=== PATIENT | female | born 1955 | race Caucasian/White ===

== ENCOUNTER 2017-08-26 08:33 | Emergency (ER) | payer OTHER ==
[2017-08-26] MEDS ORDERED: NA CHLORIDE 0.9% 1,000 ML ONE (09:11)
[2017-08-26] MEDS ORDERED: ONDANSETRON 4 MG/2 ML VIAL ONE (09:11)
[2017-08-26] MEDS ORDERED: ACETAMINOPHEN 500 MG TAB ONE (09:44)
[2017-08-26 09:55] LABS: Albumin 3.7 g/dL (3.4-5.0); Bilirubin Direct 0.1 mg/dL (0-0.2); Bilirubin Total 0.3 mg/dL (0.2-1.0)
[2017-08-26 09:59] LABS: Potassium 2.6 mmol/L (3.5-5.1)
[2017-08-26 10:13] LABS: Absolute Lymphocytes (CBC) 2.1 K/uL (0.7-4.9); Absolute Monocytes 0.9 K/uL (0.1-1.3); Absolute Neutrophil 6.4 K/uL (1.8-8.0); Basophils % 0.4 % (0-1.3); Eosinophils % 0.2 % (0-4.4); Hematocrit 48.3 % (36.0-45.0); Lymphocytes % 22.4 % (15.3-44.8); MCH 33.8 pg (27.0-35.0); MCV 97.3 fL (80-100); MPV 7.6 fL (7.6-11.3); Monocytes % 9.8 % (3.3-12.3); RBC Red Blood Cell Count 4.97 M/uL (3.86-4.86)
[2017-08-26] MEDS ORDERED: POTASSIUM CL SA 10 MEQ TAB PO ONE (10:14)
[2017-08-26] MEDS ORDERED: KCL 20 MEQ/100 mL IVPB 20 MEQ/100 ML BAG IV ONE (10:14)
[2017-08-26 10:17] LABS: Urine Blood NEGATIVE (NEG); Urine Glucose NEGATIVE (NEG); Urine Protein 2+ (NEG); Urine Specific Gravity 1.015 (1.005-1.030); Urine pH >8.5 (5.0-7.0)
[2017-08-26] MEDS ORDERED: NA CHLORIDE 0.9% 500 ML ONE (10:33)
[2017-08-26] MEDS ORDERED: PROMETHAZINE 25 MG/ML VIAL ONE (10:44)
--- NOTE | 2017-08-26 11:29 | RAD REPORT ---
EXAM DESCRIPTION: CT - Abdomen Pelvis W Contrast - 08/26/2017 11:09 am CLINICAL HISTORY: Abdominal pain/upper abdominal pain with vomiting and diarrhea for 4 days COMPARISON: 2011 TECHNIQUE: Computed axial tomography of the abdomen pelvis was obtained. 100 cc Isovue-300 was admin istered intravenously. Oral contrast was not requested which limits evaluation of bowel. All CT scans are performed using dose optimization technique as appropriate and may include automated exposure control or mA/KV adjustment according to patient size. FINDINGS: The liver, pancreas, adrenal and kidneys appear unremarkable. Splenic granulomata is seen . The wall of the distal stomach is markedly thickened. Fluid is present within nondilated small bowel. The proximal duodenum is dilated likely secondary to a focal ileus. . There is no evidence of diverticulitis. Air is present within the vagina and endometrium. IMPRESSION: Marked thickening of the wall of the distal stomach most likely representing a gastritis . A mass can also have this appearance but is considered less likely. Followup is recommended. Air within the vagina and endometrium may be secondary to instrumentation or infection and should be correlated clinically
[2017-08-26] MEDS ORDERED: PANTOPRAZOLE 40 MG INJ ONE (11:42)
[2017-08-26] MEDS ORDERED: METOCLOPRAMIDE 10 MG/2mL INJ ONE (11:42)
[2017-08-26] MEDS ORDERED: LIDOCAINE VISCOUS 2% SOLN 15 ML UDC ONE (12:35)
[2017-08-26] MEDS ORDERED: MAGNE/ALUM HYDROXD 30 ML UCUP ONE (12:35)
--- NOTE | 2017-08-26 13:22 | EDPHYS ---
Physician Documentation [facility] Name: Vandana Jang Age: 61 yrs Sex: Female : 1955 Arrival Date: 08/26/2017 Time: 08:48 Bed 15 Private MD: ED Physician Jamie Jeong HPI: 08/26 11:40 This 61 yrs old Female presents to ER via EMS with complaints of n/v/d jr8 abdominal pain. 11:40 The patient presents to the emergency department with nausea, vomiting, diarrhea, jr8 abdominal pain, of the epigastric area, described as burning, crampy. Onset: The symptoms/episode began/occurred acutely, 3 day(s) ago. Possible causes: unknown. The symptoms are aggravated by nothing. The symptoms are alleviated by nothing. Associated signs and symptoms: The patient has no apparent associated signs or symptoms. Severity of symptoms: At their worst the symptoms were moderate in the emergency department the symptoms are unchanged. The patient has not experienced similar symptoms in the past. The patient has not recently seen a physician. Historical: - Allergies: 08:51 No Known Allergies; em - PMHx: 08:51 Hepatitis; COPD; Bipolar disorder; em - Immunization history:: Adult Immunizations up to date. - Social history:: Smoking status: Patient uses tobacco products, smokes one-half pack cigarettes per day. - Ebola Screening: : Patient negative for fever greater than or equal to 101.5 degrees Fahrenheit, and additional compatible Ebola Virus Disease symptoms Patient denies exposure to infectious person Patient denies travel to an Ebola-affected area in the 21 days before illness onset No symptoms or risks identified at this time. ROS: 11:40 Eyes: Negative for injury, pain, redness, and discharge, ENT: Negative for injury, jr8 pain, and discharge, Neck: Negative for injury, pain, and swelling, Cardiovascular: Negative for chest pain, palpitations, and edema, Respiratory: Negative for shortness of breath, cough, wheezing, and pleuritic chest pain, Back: Negative for injury and pain, MS/Extremity: Negative for injury and deformity, Skin: Negative for injury, rash, and discoloration, Neuro: Negative for headache, weakness, numbness, tingling, and seizure. 11:40 Abdomen/GI: Positive for abdominal pain, nausea, vomiting, and diarrhea, Negative for abdominal distension, anorexia, dysphagia, hematemesis, black/tarry stool, rectal pain, rectal bleeding, bowel incontinence, flatulence. Exam: 11:40 ENT: Nares patent. No nasal discharge, no septal abnormalities noted. Tympanic jr8 membranes are normal and external auditory canals are clear. Oropharynx with no redness, swelling, or masses, exudates, or evidence of obstruction, uvula midline. Mucous membranes moist. Cardiovascular: Regular rate and rhythm with a normal S1 and S2. No gallops, murmurs, or rubs. Normal PMI, no JVD. No pulse deficits. Respiratory: Lungs have equal breath sounds bilaterally, clear to auscultation and percussion. No rales, rhonchi or wheezes noted. No increased work of breathing, no retractions or nasal flaring. Back: No spinal tenderness. No costovertebral tenderness. Full range of motion. Skin: Warm, dry with normal turgor. Normal color with no rashes, no lesions, and no evidence of cellulitis. MS/ Extremity: Pulses equal, no cyanosis. Neurovascular intact. Full, normal range of motion. Neuro: Awake and alert, GCS 15, oriented to person, place, time, and situation. Cranial nerves II-XII grossly intact. Motor strength 5/5 in all extremities. Sensory grossly intact. Cerebellar exam normal. Normal gait. 11:40 Abdomen/GI: Inspection: abdomen appears normal, Bowel sounds: active, all quadrants, Palpation: soft, in all quadrants, mild abdominal tenderness, in the epigastric area, mass, is not appreciated, rebound tenderness, is not appreciated, voluntary guarding, is not appreciated, involuntary guarding, is not appreciated, no appreciated organomegaly, Indicators: McBurney's point is not tender, Sanderson's sign is negative, Rovsing's sign is negative, Liver: no appreciated palpable abnormalities, tenderness, is not appreciated. Vital Signs: 08:51 BP 105 / 81; Pulse 108; Resp 16; Temp 97.8(O); Pulse Ox 91% on R/A; Weight 57.61 kg; em Height 5 ft. 2 in. (157.48 cm); Pain 4/10; 09:47 BP 112 / 81; Pulse 104; Resp 20; Pulse Ox 91% on R/A; em 11:26 BP 121 / 84; Pulse 95; Resp 16; Pulse Ox 91% on R/A; em 13:01 Pulse 107; Resp 18; Temp 99(O); Pulse Ox 91% on R/A; Pain 0/10; em 08:51 Body Mass Index 23.23 (57.61 kg, 157.48 cm) em MDM: 08:49 Patient medically screened. [facility] 13:18 Data reviewed: vital signs, nurses notes, lab test result(s), radiologic studies, CT jr8 scan, and as a result, I will discharge patient. Data interpreted: Pulse oximetry: on room air is 94 %. Interpretation: acceptable. Counseling: I had a detailed discussion with the patient and/or guardian regarding: the historical points, exam findings, and any diagnostic results supporting the discharge/admit diagnosis, lab results, radiology results, the need for outpatient follow up, a bacteriologist food, to return to the emergency department if symptoms worsen or persist or if there are any questions or concerns that arise at home. Response to treatment: the patient's symptoms have markedly improved after treatment. ED course: Detailed discussion with patient that she needs endoscopy. Will be able to see Dr. Erickson soon per patient. Will put on Carafate. To watch diet closely. 08/26 09:00 Order name: Basic Metabolic Panel; Complete Time: 10:01 08/26 09:00 Order name: CBC with Diff; Complete Time: 10:15 08/26 09:00 Order name: Creatinine for Radiology; Complete Time: 09:46 08/26 09:00 Order name: Hepatic Function; Complete Time: 10:01 08/26 09:00 Order name: Lipase; Complete Time: 10:01 08/26 09:54 Order name: Urine Dipstick--Ancillary (enter results); Complete Time: 10:43 08/26 09:54 Order name: Urine --Ancillary (enter results); Complete Time: 10:43 08/26 10:43 Order name: CT Abd/Pelvis - W/Contrast; Complete Time: 11:35 08/26 09:00 Order name: IV Saline Lock; Complete Time: 09:17 08/26 09:00 Order name: Labs collected and sent; Complete Time: 09:17 08/26 09:00 Order name: Urine Dipstick-Ancillary (obtain specimen); Complete Time: 09:50 jr8 Administered Medications: 09:15 Drug: Zofran 4 mg Route: IVP; Site: right forearm; aa5 10:20 Follow up: Response: No adverse reaction em 09:16 Drug: NS 0.9% 1000 ml Route: IV; Rate: 1000 ml; Site: right forearm; em 09:46 Drug: Tylenol 1000 mg Route: PO; em 11:25 Follow up: Response: No adverse reaction; Pain is decreased em 10:19 Drug: Potassium Chloride 40 mEq Route: PO; em 11:25 Follow up: Response: No adverse reaction em 10:19 Drug: Potassium Chloride 20 mEq Route: IV; Rate: calculated rate; Site: right forearm; em 13:40 Follow up: IV Status: Completed infusion hj 10:43 Drug: Phenergan 12.5 mg Route: IVP; Site: left antecubital; hj 11:25 Follow up: Response: No adverse reaction; Nausea is decreased em 11:47 Drug: ProTONIX 40 mg Route: IVP; Site: right forearm; hj 12:48 Follow up: Response: No adverse reaction em 11:47 Drug: Reglan 10 mg Route: IVP; Site: right forearm; hj 12:48 Follow up: Response: No adverse reaction em 12:48 Drug: GI Cocktail without - (Maalox Suspension 30 ml, Lidocaine Liquid 2 % 15 em ml) Route: PO; 13:40 Follow up: Response: No adverse reaction hj Disposition: 17:28 Co-signature as Attending Physician, Jamie Jeong MD I agree with the assessment and kdr plan of care. Disposition: 08/26/17 13:21 Discharged to Home. Impression: Gastritis, unspecified, without bleeding, Gastroenteritis. - Condition is Stable. - Discharge Instructions: Gastritis, Adult. - Prescriptions for Carafate 1 gram Oral Tablet - take 1 tablet by ORAL route 4 times per day take on an empty stomach, beginning on waking and last dose at bedtime; 100 tablet. promethazine 25 mg Oral Tablet - take 1 tablet by ORAL route every 6 hours As needed; 20 tablet. - Medication Reconciliation Form, Thank You Letter, Antibiotic Education, Prescription Opioid Use form. - Follow up: Mateo Erickson MD; When: 2 - 3 days; Reason: Recheck today's complaints, Continuance of care, Re-evaluation by your physician. - Problem is new. - Symptoms have improved. Signatures: Dispatcher [employer] EDMS Jamie Jeong MD MD kdr Munoz, Edgar, ERP MANAGER ERP MANAGER Padma Mario, RN RN aa5 Jasbir Meléndez PA PA jr8 Arvind Moseley RN RN hj Corrections: (The following items were deleted from the chart) 13:40 13:21 08/26/2017 13:21 Discharged to Home. Impression: Gastritis, unspecified, without hj bleeding; Gastroenteritis. Condition is Stable. Forms are Medication Reconciliation Form, Thank You Letter, Antibiotic Education, Prescription Opioid Use. Follow up: Mateo Erickson; When: 2 - 3 days; Reason: Recheck today's complaints, Continuance of care, Re-evaluation by your physician. Problem is new. Symptoms have improved. jr8
--- NOTE | 2017-08-26 13:22 | ER ---
Nurse's Notes [facility] Name: Vandana Jang Age: 61 yrs Sex: Female : 1955 Arrival Date: 08/26/2017 Time: 08:48 Bed 15 Private MD: Diagnosis: Gastritis, unspecified, without bleeding;Gastroenteritis Presentation: 08/26 08:48 Presenting complaint: EMS states: c/o ABD pain in the upper quads, N/V/D x 4 days, em reports chills, Hx of COPD, HEP C. Transition of care: patient was not received from another setting of care. Onset of symptoms was August 22, 2017. Risk Assessment: Do you want to hurt yourself or someone else? Patient reports no desire to harm self or others. Initial Sepsis Screen: Does the patient meet any 2 criteria? HR > 90 bpm. No. Patient's initial sepsis screen is negative. Does the patient have a suspected source of infection? No. Patient's initial sepsis screen is negative. Care prior to arrival: None. 08:48 Method Of Arrival: EMS: [facility] em 08:48 Acuity: LEXX 3 aa5 Triage Assessment: 08:51 General: Appears in no apparent distress. uncomfortable, Behavior is calm, cooperative. em Pain: Complains of pain in right upper quadrant and left upper quadrant Pain currently is 4 out of 10 on a pain scale. Historical: - Allergies: 08:51 No Known Allergies; em - PMHx: 08:51 Hepatitis; COPD; Bipolar disorder; em - Immunization history:: Adult Immunizations up to date. - Social history:: Smoking status: Patient uses tobacco products, smokes one-half pack cigarettes per day. - Ebola Screening: : Patient negative for fever greater than or equal to 101.5 degrees Fahrenheit, and additional compatible Ebola Virus Disease symptoms Patient denies exposure to infectious person Patient denies travel to an Ebola-affected area in the 21 days before illness onset No symptoms or risks identified at this time. Screenin:52 Abuse screen: Denies threats or abuse. Nutritional screening: No deficits noted. em Tuberculosis screening: No symptoms or risk factors identified. Fall Risk None identified. Assessment: 08:51 General: Appears in no apparent distress. uncomfortable, Behavior is calm, cooperative, em Reports chills for 1-2 days. Pain: Complains of pain in left upper quadrant and right upper quadrant Pain currently is 4 out of 10 on a pain scale. Quality of pain is described as sharp. Neuro: Level of Consciousness is awake, alert, obeys commands, Oriented to person, place, time, situation, Denies dizziness. Cardiovascular: Capillary refill < 3 seconds Patient's skin is warm and dry. Respiratory: Airway is patent Respiratory effort is even, unlabored, Respiratory pattern is regular, symmetrical. GI: Abdomen is flat. : No signs and/or symptoms were reported regarding the genitourinary system. EENT: No signs and/or symptoms were reported regarding the EENT system. Derm: Skin is intact, Skin is pink, warm \T\ dry. Musculoskeletal: Range of motion: intact in all extremities. 08:51 Reassessment: I agree with assessment completed by JONNY Sauceda . aa5 09:45 Reassessment: Patient appears in no apparent distress at this time. Patient and/or em family updated on plan of care and expected duration. Pain level reassessed. Patient is alert, oriented x 3, equal unlabored respirations, skin warm/dry/pink. reports a mild headache, ROSY Martell notified, new orders received, warm blanket given. 11:35 Reassessment: Patient appears in no apparent distress at this time. Patient and/or em family updated on plan of care and expected duration. Pain level reassessed. Patient is alert, oriented x 3, equal unlabored respirations, skin warm/dry/pink. currently vomiting, ROSY Martell at bedside, received new medication orders. 12:57 Reassessment: Patient appears in no apparent distress at this time. Patient is alert, em oriented x 3, equal unlabored respirations, skin warm/dry/pink. reports abd pain, ROSY Martell notified, GI cocktail ordered, pt tolerated well. Vital Signs: 08:51 BP 105 / 81; Pulse 108; Resp 16; Temp 97.8(O); Pulse Ox 91% on R/A; Weight 57.61 kg; em Height 5 ft. 2 in. (157.48 cm); Pain 4/10; 09:47 BP 112 / 81; Pulse 104; Resp 20; Pulse Ox 91% on R/A; em 11:26 BP 121 / 84; Pulse 95; Resp 16; Pulse Ox 91% on R/A; em 13:01 Pulse 107; Resp 18; Temp 99(O); Pulse Ox 91% on R/A; Pain 0/10; em 08:51 Body Mass Index 23.23 (57.61 kg, 157.48 cm) em ED Course: 08:48 Patient arrived in ED. em 08:48 Jasbir Meléndez PA is PHCP. jr8 08:49 Jamie Jeong MD is Attending Physician. jr8 08:52 Arm band placed on. em 08:52 Patient has correct armband on for positive identification. Bed in low position. Call em light in reach. Side rails up X2. 08:52 No provider procedures requiring assistance completed. em 09:05 Sohail Erazo LVN is Primary Nurse. em 09:17 Inserted saline lock: 22 gauge in right forearm, using aseptic technique. dh3 09:17 Initial lab(s) drawn, by me, sent to lab. by venipuncture 23G to right wrist. dh3 09:25 Triage completed. aa5 09:49 Urine collected: clean catch specimen, massiel colored. dh3 11:[address] via wheelchair. mw3 11:09 CT completed. Patient tolerated procedure well. Patient moved back from CT. mw3 11:09 CT Abd/Pelvis - W/Contrast In Process Unspecified. EDMS 13:20 Mateo Erickson MD is Referral Physician. jr8 13:39 IV discontinued, intact, bleeding controlled, No redness/swelling at site. Pressure hj dressing applied. Administered Medications: 09:15 Drug: Zofran 4 mg Route: IVP; Site: right forearm; aa5 10:20 Follow up: Response: No adverse reaction em 09:16 Drug: NS 0.9% 1000 ml Route: IV; Rate: 1000 ml; Site: right forearm; em 09:46 Drug: Tylenol 1000 mg Route: PO; em 11:25 Follow up: Response: No adverse reaction; Pain is decreased em 10:19 Drug: Potassium Chloride 40 mEq Route: PO; em 11:25 Follow up: Response: No adverse reaction em 10:19 Drug: Potassium Chloride 20 mEq Route: IV; Rate: calculated rate; Site: right forearm; em 13:40 Follow up: IV Status: Completed infusion hj 10:43 Drug: Phenergan 12.5 mg Route: IVP; Site: left antecubital; hj 11:25 Follow up: Response: No adverse reaction; Nausea is decreased em 11:47 Drug: ProTONIX 40 mg Route: IVP; Site: right forearm; hj 12:48 Follow up: Response: No adverse reaction em 11:47 Drug: Reglan 10 mg Route: IVP; Site: right forearm; hj 12:48 Follow up: Response: No adverse reaction em 12:48 Drug: GI Cocktail without - (Maalox Suspension 30 ml, Lidocaine Liquid 2 % 15 em ml) Route: PO; 13:40 Follow up: Response: No adverse reaction Outcome: 13:21 Discharge ordered by . jr8 13:39 Discharged to home ambulatory, with family. 13:39 Condition: stable 13:39 Discharge instructions given to patient, family, Instructed on discharge instructions, follow up and referral plans. medication usage, Demonstrated understanding of instructions, follow-up care, medications, Prescriptions given X 2. 13:40 Patient left the ED. Signatures: Dispatcher [employer] EDSohail Peter, ACTUARIAL MATHEMATICIAN ACTUARIAL MATHEMATICIAN em Padma Clarke, RN RN aa5 Jasbir Meléndez PA PA jr8 Arvind Moseley RN RN Daniella Fung 3 Kayla Wilson 3 Corrections: (The following items were deleted from the chart) 11:53 11:26 BP 181 / 84; Pulse 95bpm; Resp 16bpm; Pulse Ox 91% RA; em em
[2017-08-26 13:44] VITALS: O2SAT 91
[2017-08-26 13:46] VITALS: BP 121/84
[2017-08-26 13:47] VITALS: TEMP 99
== END 2017-08-26 13:40 | disposition home or self-care (01) ==
LOC: ER 08:33
DX: K52.9 Noninfective gastroenteritis and colitis, unspecified (principal); K29.70 Gastritis, unspecified, without bleeding; F17.210 Nicotine dependence, cigarettes, uncomplicated
CPT/HCPCS: 36415; 74177; 80048; 80076; 81003; 81025; 83690; 85025; 99284; C9113; J2405; J2550; J2765; J7030; Q9967

== ENCOUNTER 2024-11-20 07:25 | Emergency (ER) | payer OTHER ==
[2024-11-20] MEDS ORDERED: LIDOCAINE 1% 20 ML MDV ONE (07:41)
--- OUTSIDE RECORDS SUMMARY | 2024-11-20 07:45 | XMS REPORT | Continuity of Care Document ---
Author Name Unknown Address [address] [facility]. [address] [place] [address] [facility] Address [address] [facility] [place] [address] Care Team Providers Care Prevention Coordinator Name Role Phone Donna LUGOTONNYChasity Primary Care Physician [phone] Attending Clinician Unavailable Louis Alvarado MD Attending Clinician Binta Munson MD Attending Clinician BINTA MUNSON Attending Clinician Unavailabl e Doctor Unassigned, [place] Attending Clinician U Jeimy Hadley LMSW Attending Clinician Fritz Almanza RN, Heike Greco Attending Clinician MARQUIS LIZ Attending Clinician Unavailable Ayo Huston MD Attending Clinician Kendall Quintero MD Attending Clinician [phone] Marquis Liz DO Attending Clinician ROD GARCIA Attending Clinician Unavail able ROD GARCIA Attending Clinician Unavail able 2, [facility] Attending Clinician Unavailable Neurology Attending Clinician Unavailable [id number] Admitting Clinician Unavailable BINTA MUNSON Admitting Clinician Unavailjr e Binta Munson MD Admitting Clinician [phone] KENDALL QUINTERO Admitting Clinician Unavailable Kendall Quintero MD Admitting Clinician [phone] Payers Payer Name Policy Type Policy Number Effective Date Expirati on Date Source [facility] [id number] Problems Condition Name Condition Details Condition Category Status Onset Date Resolution Date Last Treatment Date Treating Clinician Comments Source Closed fracture of both calcanei, initial encounter Closed fracture of both calcanei, initial encounter Disease Active 06-15 00:00: 00 [facility] Allergies, Adverse Reactions, Alerts Allergy Name Allergy Type Status Severity Reaction(s) Onset Date Inactive Date Treating Clinician Comments Source NO KNOWN ALLERGIE S Drug Class Active [facility] Social History Social Habit Start Date Stop Date Quantity Comments Source History of tobacco use Cigarette Smoker [facility] History SDOH Alcohol Std Drinks [facility] History SDOH Alcohol Binge [facility] History SDOH Social Connections Get Together [facility] History SDOH Social Connections Yarsani [facility] History SDOH Social Connections Membership [facility] History SDOH Social Connections Meetings [facility] Gender identity [facility] Sexual orientation U [facility] Alcohol intake 2023-04-17 00:00:00 2023-04-17 00:00:00 0 /d [facility] History of Social function 2022-11-02 00:00:00 2022-11-02 00:00:00 [facility] Cigarettes smoked current (pack per day) - Reported 2022-10-29 00:00:00 2022-10-29 00:00:00 [facility] Exposure to SARS-CoV-2 (event) 2022-06-11 00:00:00 2022-06-21 14:51:00 Not sure [facility] Alcoholic beverage intake 2022-06-21 00:00:00 2022-06-21 00:00:00 0 /d [facility] Tobacco use and exposure 2022-06-15 00:00:00 2022-06-15 00:00:00 Smokeless tobacco non-user [facility] History SDOH Alcohol Frequency 2022-06-15 00:00:00 2022-06-15 00:00:00 1 [facility] History SDOH Social Connections Phone 2022-06-15 00:00:00 2022-06-15 00:00:00 5 [facility] History SDOH Social Connections Living 2022-06-15 00:00:00 2022-06-15 00:00:00 7 [facility] History SDOH Physical Activity DPW 2022-06-15 00:00:00 2022-06-15 00:00:00 0 [facility] History SDOH Physical Activity MPS 2022-06-15 00:00:00 2022-06-15 00:00:00 0 [facility] History SDOH Financial 2022-06-15 00:00:00 2022-06-15 00:00:00 5 [facility] History SDOH Food Worry 2022-06-15 00:00:00 2022-06-15 00:00:00 1 [facility] History SDOH Food Scarcity 2022-06-15 00:00:00 2022-06-15 00:00:00 1 [facility] History SDOH Transport Med 2022-06-15 00:00:00 2022-06-15 00:00:00 2 [facility] History SDOH Transport Non-Med 2022-06-15 00:00:00 2022-06-15 00:00:00 2 [facility] History SDOH Housing Unable to Pay 2022-06-15 00:00:00 2022-06-15 00:00:00 2 [facility] History SDOH Housing Places Lived 2022-06-15 00:00:00 2022-06-15 00:00:00 1 [facility] History SDOH Housing Homeless Last Year 2022-06-15 00:00:00 2022-06-15 00:00:00 2 [facility] Tobacco Comment 2022-06-15 00:00:00 2022-06-15 00:00:00 Only vapes currently, occasional smokes cigarette [facility] Sex assigned at 1955 00:00:00 1955 00:00:00 [facility] Smoking Status Start Date Stop Date Source Occasional tobacco smoker 2022-10-29 00:00:00 [facility] Ex-smoker 2022-06-15 00:00:00 2022-06-15 00:00:00 [facility] Medications Ordered Medication Name Filled Medication Name Start Date Stop Date Current Medication? Ordering Clinician Indication Dosage Frequency Signature (SIG) Comments Components Source albuterol sulfate HFA 90 mcg/actuati on aerosol inhaler 2023-02 00:00: 00 Yes mcg/act uation Oleg Lemon Wixela Inhub 250 mcg-50 mcg/dose powder for inhalation 2023-02 00:00: 00 Yes mcg/dos e Oleg Lemon quetiapine 300 mg tablet 2023-02 00:00: 00 Yes 1mg Oleg Lmeon trazodone 100 mg tablet 2023-02 0-24 00:00: 00 Yes 2mg Oleg Lemon venlafaxine ER 150 mg capsule,ext ended release 24 hr 2023-02 00:00: 00 Yes 1mg Oleg Lemon quetiapine 300 mg tablet - 00:00: 00 Yes 1mg Oleg Lemon trazodone 100 mg tablet - 00:00: 00 Yes 2mg Oleg Lemon venlafaxine ER 150 mg capsule,ext ended release 24 hr - 00:00: 00 Yes 1mg Oleg Lemon venlafaxine ER 150 mg capsule,ext ended release 24 hr -05 00:00: 00 Yes 1mg Oleg Lemon quetiapine 300 mg tablet 9-05 00:00: 00 Yes 1mg Oleg Lemon trazodone 100 mg tablet 9-05 00:00: 00 Yes 2mg Oleg Lemon quetiapine 300 mg tablet -27 00:00: 00 Yes mg Oleg Lemon venlafaxine ER 150 mg capsule,ext ended release 24 hr -27 00:00: 00 Yes 1mg Oleg Lemon trazodone 100 mg tablet 2024-0 8-16 00:00: 00 Yes mg Oleg Lemon quetiapine 300 mg tablet 0 7-03 00:00: 00 Yes mg Oleg Lemon trazodone 100 mg tablet 0 7-03 00:00: 00 Yes mg Oleg Lemon venlafaxine ER 150 mg capsule,ext ended release 24 hr 0 7-03 00:00: 00 Yes 1mg Oleg Lemon albuterol sulfate HFA 90 mcg/actuati on aerosol inhaler 0 -15 00:00: 00 Yes mcg/act uation Oleg Lemon Wixela Inhub 250 mcg-50 mcg/dose powder for inhalation 0 -15 00:00: 00 Yes mcg/dos e Oleg Lemon cetirizine 10 mg tablet -15 00:00: 00 Yes 1mg Oleg Lemon albuterol sulfate HFA 90 mcg/actuati on aerosol inhaler 0 -14 00:00: 00 Yes mcg/act uation Oleg Lemon Wixela Inhub 250 mcg-50 mcg/dose powder for inhalation 14 00:00: 00 Yes mcg/dos e Oleg Lmeon quetiapine 300 mg tablet 5-08 00:00: 00 Yes mg Oleg Lemon trazodone 100 mg tablet 0 5-08 00:00: 00 Yes mg Oleg Lemon venlafaxine ER 150 mg capsule,ext ended release 24 hr -08 00:00: 00 Yes 1mg Oleg Lemon TAKE 1 TABLET BY MOUTH TWICE DAILY FOR 7 DAYS NEEDED 5-06 00:00: 00 Yes Oleg Lemon trazodone 100 mg tablet 0 4-03 00:00: 00 Yes mg Oleg Lemon quetiapine 300 mg tablet 0 4-03 00:00: 00 Yes mg Oleg Lemon venlafaxine ER 150 mg capsule,ext ended release 24 hr 0 4-03 00:00: 00 Yes 1mg Oleg Lemon TRAMADOL HCL 50MG 2023-0 4-02 00:00: 00 Yes 50 Oleg Lemon trazodone 100 mg tablet 0 3-07 00:00: 00 Yes mg Oleg Lemon quetiapine 300 mg tablet 3- 00:00: 00 Yes mg Oleg Lemon venlafaxine ER 150 mg capsule,ext ended release 24 hr - 00:00: 00 Yes 1mg Oleg Lemon TAKE 1 TABLET AT BEDTIME. - 00:00: 00 Yes 300 Oleg Lemon TAKE 1 CAPSULE TWICE DAILY. - 00:00: 00 Yes 150 Oleg Lemon cetirizine 10 mg tablet 04-12 00:00: 00 Yes mg Oleg Lemon metronidazo le 500 mg tablet 04-12 00:00: 00 Yes mg Oleg Lemon albuterol sulfate HFA 90 mcg/actuati on aerosol inhaler 04-12 00:00: 00 Yes mcg/act uation Oleg Lemon Wixela Inhub 250 mcg-50 mcg/dose powder for inhalation 04-12 00:00: 00 Yes mcg/dos e Oleg Lemon tramadol 50 mg tablet - 00:00: 00 Yes mg Oleg Lemon omeprazole 40 mg capsule,del ayed release 2-20 00:00: 00 Yes mg Oleg Lemon venlafaxine ER 150 mg capsule,ext ended release 24 hr 03-26 00:00: 00 Yes mg Oleg Lemon trazodone 100 mg tablet 2-09 00:00: 00 Yes mg Oleg Lemon QUETIAPINE FUMARATE 300 MG TABS 2- 00:00: 00 Yes Oleg Lemon TAKE 1 CAPSULE TWICE DAILY. 2- 00:00: 00 06-28 00:00 :00 No 150 Oleg Lemon TAKE 2 TABLETS AT BEDTIME. 2- 00:00: 00 06-28 00:00 :00 No 100 Oleg Lemon TAKE 1 TABLET AT BEDTIME. 2-08 00:00: 00 06-28 00:00 :00 No 300 Oleg Lemon acetaminoph en 300 mg-codeine 30 mg tablet 2-06 00:00: 00 Yes mg Oleg Lemon methocarbam ol 500 mg tablet 2-06 00:00: 00 Yes mg Oleg Lemon quetiapine 300 mg tablet 2-04 00:00: 00 Yes mg Oleg Lemon VENLAFAXINE HYDROCHLORI DE ER 150 MG CP24 1-11 00:00: 00 Yes Oleg Lemon TAKE 1 TABLET AT BEDTIME. 02-24 00:00: 00 06-28 00:00 :00 No 300 Oleg Lemon TAKE 2 TABLETS AT BEDTIME. 02-24 00:00: 00 06-28 00:00 :00 No 100 Oleg Lemon TAKE 1 CAPSULE TWICE DAILY. 02-24 00:00: 00 06-28 00:00 :00 No 150 Oleg Lemon METHOCARBAM OL 500 MG TABS - 00:00: 00 Yes Oleg Lemon TRAMADOL HYDROCHLORI DE 50 MG TABS 02-22 00:00: 00 Yes Oleg Lemon QUETIAPINE FUMARATE 300 MG TABS 2022-02 00:00: 00 Yes Oleg Lemon TAKE 1 TABLET AT BEDTIME. 2022-02 00:00: 00 06-28 00:00 :00 No 300 Oleg Lemon TAKE 1 CAPSULE TWICE DAILY. 2022-02 00:00: 00 06-28 00:00 :00 No 150 Oleg Lemon TRAMADOL HYDROCHLORI DE 50 MG TABS 2022-02 00:00: 00 Yes Oleg Lemon TAKE 1 TABLET BY MOUTH AT BEDTIME 2022-02 00:00: 00 Yes Oleg Lemon TAKE 1 TABLET AT BEDTIME. 2022-02 00:00: 00 06-28 00:00 :00 No 300 Oleg Lemon TAKE 1 CAPSULE TWICE DAILY. 2022-02 00:00: 00 06-28 00:00 :00 No 150 Oleg Lemon TAKE 2 TABLETS AT BEDTIME. 2022-02 00:00: 00 06-28 00:00 :00 No 100 Oleg Lemon TAKE 1 CAPSULE TWICE DAILY. 2022-02 00:00: 00 06-28 00:00 :00 No 150 Oleg Lemon TAKE 1 TABLET AT BEDTIME. 2022-02 00:00: 00 06-28 00:00 :00 No 300 Oleg Lemon TRAZODONE HYDROCHLORI DE 100 MG TABS 2022-02 00:00: 00 06-28 00:00 :00 No Oleg Lemon TAKE 1 CAPSULE BY MOUTH EVERY DAY 2022-02 00:00: 00 Yes Oleg Lemon TAKE 1 TABLET BY MOUTH TWICE DAILY FOR 7 DAYS NEEDED 2022-02 00:00: 00 Yes Oleg Lemon TAKE 1 CAPSULE TWICE DAILY. 11-11 00:00: 00 06-28 00:00 :00 No 150 Oleg Lemon TAKE 2 TABLETS AT BEDTIME. 11-11 00:00: 00 06-28 00:00 :00 No 100 Oleg Lemon TAKE 1 TABLET AT BEDTIME. 11-11 00:00: 00 06-28 00:00 :00 No 300 Oleg Lemon TAKE 1 TABLET BY MOUTH EVERYDAY AT BEDTIME 11-10 00:00: 00 Yes Oleg Lemon TAKE 1 CAPSULE BY MOUTH TWICE A DAY 11-10 00:00: 00 Yes Oleg Lemon TAKE 1 CAPSULE TWICE DAILY. 11-10 00:00: 00 06-28 00:00 :00 No 150 Oleg Lemon TAKE 2 TABLETS AT BEDTIME. 11-10 00:00: 00 06-28 00:00 :00 No 100 Oleg Lemon TAKE 1 TABLET AT BEDTIME. 11-10 00:00: 00 06-28 00:00 :00 No 300 Oleg Lemon traZODONE (DESYREL) 100 mg tablet 11-02 18:34: 19 Yes 100mg Take 1 tablet by mouth at bedtime. [facility] venlafaxine XR (EFFEXOR XR) 150 mg 24 hr capsule 11-02 18:34: 19 Yes 150mg Take 1 capsule by mouth in the morning. [facility] omeprazole 40 mg capsule 11-02 18:34: 19 Yes 40mg Take 1 capsule by mouth in the morning. [facility] ondansetron 4 mg tablet 11-02 18:34: 19 Yes 4mg Take 1 tablet by mouth in the morning and 1 tablet in the evening. [facility] acetaminoph en/diphenhy dramine (PAIN RELIEF PM ORAL) 11-02 18:34: 19 Yes Take by mouth at bedtime. PRN [facility] cetirizine 10 mg tablet 11-02 18:34: 19 Yes 10mg Take 1 tablet by mouth as needed for Allergies. [facility] HYDROcodone -acetaminop hen (NORCO 5) 5-325 mg tablet 1 tablet 11-02 16:45: 00 11-02 16:47 :00 No 1{tbl} 1 tablet, Oral, ONCE, 1 dose, On Tue11/02/22 at 1145, Routine, PACU [facility] HYDROmorpho ne (DILAUDID) injection 0.4 mg 11-02 16:40: 13 Yes .4mg 0.4 mg, Slow IV Push, Q15MIN PRN, 4 doses, Starting on Tue11/02/22 at 1140, Until Discontinu ed, Routine, Pain (scale 7-10), Pain (scale 4-6), PACU
Us e approved by (Faculty): PACU USE -ANESTHESI A SERVICE-HY DROMORPHON E INJECTIONS [facility] proMETHazin e (PHENERGAN) 6.25 mg in NaCl 0.9% (NS) 50 mL piggyback 11-02 16:40: 13 11-03 01:34 :22 No 6.25mg 6.25 mg, IV Piggyback, at 200 mL/hr Administer over 15 Minutes, PRN, 1 dose, Starting on Tue11/02/22 at 1140, Until Tue11/02/22 at 2034, Routine, N/V unresponsi ve to Ondansetro n, PACU [facility] ketorolac (TORADOL) injection 15 mg 11-02 16:40: 13 11-02 16:52 :00 No 15mg 15 mg, Slow IV Push, PRN, 1 dose, Starting on Tue11/02/22 at 1140, Until Tue11/02/22 at 1152, Routine, Pain (scale 4-6), PACU [facility] HYDROCODONE BITARTRATE/ ACETAMINOPH E N 5-325 MG TABS 11-02 00:00: 00 Yes Oleg Lemon ONDANSETRON HYDROCHLORI DE 4 MG TABS 11-02 00:00: 00 Yes Oleg Lemon GABAPENTIN 300 MG 11-02 00:00: 00 Yes Oleg Lemon METHOCARBAM OL 500 MG TABS 11-02 00:00: 00 Yes Oleg Lemon ondansetron (ZOFRAN) 4 mg tablet 11-02 00:00: 00 Yes [id number] 4mg Take 1 tablet by mouth every 6 (six) hours as needed for Nausea and Vomiting (N/V). [facility] aspirin 325 mg tablet 11-02 00:00: 00 12-01 04:59 :00 No [id number] 325mg Take 1 tablet by mouth in the morning and 1 tablet in the evening. Take with meals. Do all this for 28 days. [facility] gabapentin 300 mg capsule 11-02 00:00: 00 11-17 04:59 :00 No [id number] 300mg Take 1 capsule by mouth in the morning and 1 capsule at noon and 1 capsule in the evening. Do all this for 14 days. [facility] methocarbam oL 500 mg tablet 11-02 00:00: 00 11-17 04:59 :00 No [id number] 500mg Take 1 tablet by mouth 4 (four) times daily for 14 days. [facility] docusate 100 mg capsule 11-02 00:00: 00 11-17 04:59 :00 No [id number] 100mg Take 1 capsule by mouth in the morning for 14 days. [facility] polyethylen e glycol 3350 (MIRALAX) 17 gram powder 11-02 00:00: 00 11-17 04:59 :00 No [id number] 1{packe t} Mix 1 Packet in 8 ounces of water and take by mouth in the morning for 14 days. [facility] HYDROcodone -acetaminop hen 5-325 mg tablet 11-02 00:00: 00 11-10 04:59 :00 No [id number] 1{tbl} Take 1 tablet by mouth every 6 (six) hours as needed for Pain (scale 4-6) or Pain (scale 7-10) for up to 7 days. Indication s: acute pain [facility] cetirizine 10 mg tablet 10-29 11:00: 37 Yes 10mg Take 1 tablet by mouth as needed for Allergies. [facility] traZODONE (DESYREL) 100 mg tablet 10-29 10:58: 09 Yes 100mg Take 1 tablet by mouth at bedtime. [facility] venlafaxine XR (EFFEXOR XR) 150 mg 24 hr capsule 10-29 10:58: 09 Yes 150mg Take 1 capsule by mouth in the morning. [facility] omeprazole 40 mg capsule 10-29 10:58: 09 Yes 40mg Take 1 capsule by mouth in the morning. [facility] ondansetron 4 mg tablet 10-29 10:58: 09 Yes 4mg Take 1 tablet by mouth in the morning and 1 tablet in the evening. [facility] acetaminoph en/diphenhy dramine (PAIN RELIEF PM ORAL) 10-29 10:58: 09 Yes Take by mouth at bedtime. PRN [facility] METHOCARBAM OL 500 MG TABS 10-25 00:00: 00 Yes Oleg Lemon TAKE 1 TABLET BY MOUTH EVERYDAY AT BEDTIME 10-12 00:00: 00 Yes Oleg Lemon TAKE 1 CAPSULE BY MOUTH TWICE A DAY 10-12 00:00: 00 Yes Oleg Lemon TAKE 2 TABLETS AT BEDTIME. 10-12 00:00: 00 06-28 00:00 :00 No 100 Oleg Lemon TAKE 1 TABLET AT BEDTIME. 10-12 00:00: 00 06-28 00:00 :00 No 300 Oleg Lemon TAKE 1 CAPSULE TWICE DAILY. 10-12 00:00: 00 06-28 00:00 :00 No 150 Oleg Lemon TRAMADOL HCL 50 MG TABS 09-22 00:00: 00 Yes Oleg Lemon VENLAFAXINE HYDROCHLORI DE ER 150 MG CP24 09-22 00:00: 00 Yes Oleg Lemon TAKE 1 TABLET BY MOUTH EVERYDAY AT BEDTIME 09-22 00:00: 00 Yes Oleg Lemon TAKE 1 CAPSULE TWICE DAILY. 09-22 00:00: 00 06-28 00:00 :00 No 150 Oleg Lemon TAKE 1 TABLET AT BEDTIME. 09-22 00:00: 00 06-28 00:00 :00 No 300 Oleg Lemon TRAZODONE HYDROCHLORI DE 100 MG TABS 09-22 00:00: 00 06-28 00:00 :00 No Oleg Lemon QUEtiapine 300 mg tablet 09-06 00:00: 00 Yes 300mg Take 1 tablet by mouth at bedtime. [facility] TAKE 1 CAPSULE BY MOUTH EVERY DAY 08-30 00:00: 00 Yes Oleg Lemon TRAMADOL HCL 50 MG TABS 08-25 00:00: 00 Yes Oleg Lemon QUETIAPINE FUMARATE 300 MG TABS 08-20 00:00: 00 Yes Oleg Lemon TAKE 1 CAPSULE BY MOUTH TWICE A DAY 08-20 00:00: 00 Yes Oleg Lemon TAKE 1 TABLET AT BEDTIME. 08-20 00:00: 00 06-28 00:00 :00 No 300 Oleg Lemon TAKE 1 CAPSULE TWICE DAILY. 08-20 00:00: 00 06-28 00:00 :00 No 150 lOeg Lemon TAKE 2 TABLETS AT BEDTIME. 08-20 00:00: 00 06-28 00:00 :00 No 100 Oleg Lemon ONDANSETRON HYDROCHLORI DE 4 MG TABS 08-19 00:00: 00 Yes Oleg Lemon METHOCARBAM OL 500 MG TABS 07-29 00:00: 00 Yes Oleg Lemon QUETIAPINE FUMARATE 300 MG TABS 07-23 00:00: 00 Yes Oleg Lemon TAKE 1 CAPSULE BY MOUTH TWICE A DAY 07-23 00:00: 00 Yes Oleg Lemon TAKE 1 TABLET AT BEDTIME. 07-23 00:00: 00 06-28 00:00 :00 No 300 Oleg Lemon TAKE 1 CAPSULE TWICE DAILY. 07-23 00:00: 00 06-28 00:00 :00 No 150 Oleg Lemon TAKE 2 TABLETS AT BEDTIME. 07-23 00:00: 00 06-28 00:00 :00 No 100 Oleg Lemon FENTanyl PF (SUBLIMAZE (PF)) injection 25 mcg 07-21 14:44: 01 07-21 14:55 :00 No 25ug 25 mcg, Slow IV Push, Q5MIN PRN, 4 doses, Starting on Tue07/21/22 at 0944, Until Tue07/21/22 at 0955, Routine, Pain (scale 4-6), PACU [facility] lactated ringers IV infusion 500 mL 07-21 14:15: 00 Yes 500mL at 75 mL/hr, 500 mL, IV Infusion, CONTINUOUS , Starting on Tue07/21/22 at 0915, Until Discontinu ed, Routine, PACU [facility] morpHINE (4 mg/mL) injection 2 mg 07-21 14:08: 54 Yes 2mg 2 mg, Slow IV Push, Q5MIN PRN, 5 doses, Starting on Tue07/21/22 at 0908, Until Discontinu ed, Routine, Pain (scale 4-6), PACU [facility] ondansetron (ZOFRAN (PF)) injection 4 mg 07-21 14:08: 54 Yes 4mg 4 mg, Slow IV Push, PRN, 1 dose, Starting on Tue07/21/22 at 0908, Until Discontinu ed, Routine, Nausea and Vomiting (N/V), PACU [facility] bupivacaine (preserv free) (SENSORCAIN E MPF) 0.25 % (2.5 mg/mL) injection 07-21 13:52: 00 Yes PRN, Starting on Tue07/21/22 at 0852, Until Discontinu ed, Routine, Intra-op [facility] traZODONE (DESYREL) 100 mg tablet 07-21 11:08: 34 Yes 100mg Take 1 tablet by mouth at bedtime. [facility] venlafaxine XR (EFFEXOR XR) 150 mg 24 hr capsule 07-21 11:08: 34 Yes 150mg Take 1 capsule by mouth in the morning. [facility] omeprazole 40 mg capsule 07-21 11:08: 34 Yes 40mg Take 1 capsule by mouth in the morning. [facility] ondansetron 4 mg tablet 07-21 11:08: 34 Yes 4mg Take 1 tablet by mouth in the morning and 1 tablet in the evening. [facility] acetaminoph en/diphenhy dramine (PAIN RELIEF PM ORAL) 07-21 11:08: 34 Yes Take by mouth at bedtime. PRN [facility] GABAPENTIN 300 MG 07-21 00:00: 00 Yes Oleg Leomn METHOCARBAM OL 500 MG TABS 07-21 00:00: 00 Yes Oleg Lemon aspirin E.C. 325 mg EC tablet 07-21 00:00: 00 08-19 04:59 :00 No [id number] 325mg Take 1 tablet by mouth in the morning for 28 days. [facility] gabapentin 300 mg capsule 07-21 00:00: 00 08-01 04:59 :00 No [id number] 300mg Take 1 capsule by mouth in the morning and 1 capsule at noon and 1 capsule in the evening. Do all this for 10 days. [facility] methocarbam oL 500 mg tablet 07-21 00:00: 00 08-01 04:59 :00 No [id number] 500mg Take 1 tablet by mouth 4 (four) times daily for 10 days. [facility] traMADoL 50 mg tablet 07-21 00:00: 00 07-29 04:59 :00 No [id number] 50mg Take 1 tablet by mouth every 6 (six) hours for 7 days. Indication s: acute pain [facility] acetaminoph en/diphenhy dramine (PAIN RELIEF PM ORAL) 07-16 11:06: 30 Yes Take by mouth at bedtime. PRN [facility] traZODONE (DESYREL) 100 mg tablet 07-16 11:05: 15 Yes 100mg Take 1 tablet by mouth at bedtime. [facility] venlafaxine XR (EFFEXOR XR) 150 mg 24 hr capsule 07-16 11:05: 15 Yes 150mg Take 1 capsule by mouth in the morning. [facility] omeprazole 40 mg capsule 07-16 11:05: 15 Yes 40mg Take 1 capsule by mouth in the morning. [facility] ondansetron 4 mg tablet 07-16 11:05: 15 Yes 4mg Take 1 tablet by mouth in the morning and 1 tablet in the evening. [facility] TAKE 1 TABLET ONCE A DAY NEEDED FOR 28 DAY(S) 07-01 00:00: 00 Yes Oleg Sandra Ion TRAMADOL HCL 50 MG TABS 07-01 00:00: 00 Yes Oleg Lemon methocarbam oL 500 mg tablet 06-30 00:00: 00 07-15 04:59 :00 No [id number] 500mg Take 1 tablet by mouth 4 (four) times daily for 14 days. [facility] gabapentin 300 mg capsule 06-30 00:00: 00 06-30 00:00 :00 No [id number] 300mg Take 1 capsule by mouth in the morning and 1 capsule at noon and 1 capsule in the evening. Do all this for 14 days. [facility] VENLAFAXINE HCL ER 150 MG CP24 06-22 00:00: 00 Yes Oleg Lemon TRAMADOL HCL 50 MG TABS 06-22 00:00: 00 Yes Oleg Lemon TAKE 2 TABLETS AT BEDTIME. 06-22 00:00: 00 06-28 00:00 :00 No 100 Oleg Lemon TAKE 1 TABLET AT BEDTIME. 06-22 00:00: 00 06-28 00:00 :00 No 200 Oleg Lemon TAKE 1 CAPSULE TWICE DAILY. 06-22 00:00: 00 06-28 00:00 :00 No 150 Oleg Lemon ACETAMINOPH EN/CODEINE 300-30 MG TABS 06-21 00:00: 00 Yes Oleg Lemon acetaminoph en-codeine (TYLENOL-CO DEINE #3) 300-30 mg tablet 06-21 00:00: 00 06-29 04:59 :00 No [id number] 1{tbl} Take 1 tablet by mouth every 4 (four) hours as needed for Pain (scale 7-10) for up to 7 days. Indication s: acute pain [facility] QUEtiapine (SEROQUEL) tablet 200 mg 06-16 02:00: 00 Yes 200mg 200 mg, Oral, QHS, First dose (after last modificati on) on Tue06/15/22 at 2100, Until Discontinu ed, Routine [facility] enoxaparin (LOVENOX) injection 30 mg 06-15 22:00: 00 Yes 30mg 30 mg, Subcutaneo us, DAILY, First dose on Tue06/15/22 at 1700, Until Discontinu ed, Routine [facility] traZODONE (DESYREL) 100 mg tablet 06-15 17:39: 35 Yes 100mg Take 1 tablet by mouth at bedtime. [facility] venlafaxine XR (EFFEXOR XR) 150 mg 24 hr capsule 06-15 17:39: 35 Yes 150mg Take 1 capsule by mouth in the morning. [facility] omeprazole 40 mg capsule 06-15 17:39: 35 Yes 40mg Take 1 capsule by mouth in the morning. [facility] ondansetron 4 mg tablet 06-15 17:39: 35 Yes 4mg Take 1 tablet by mouth in the morning and 1 tablet in the evening. [facility] venlafaxine XR (EFFEXOR XR) 24 hr capsule 150 mg 06-15 14:00: 00 Yes 150mg 150 mg, Oral, DAILY, First dose on Tue06/15/22 at 0900, Until Discontinu ed, Routine [facility] omeprazole (PRILOSEC) capsule 40 mg 06-15 14:00: 00 Yes 40mg 40 mg, Oral, DAILY, First dose on Tue06/15/22 at 0900, Until Discontinu ed [facility] traMADoL 50 mg tablet 06-15 12:04: 58 06-15 00:00 :00 No 50mg Take 1 tablet by mouth every 6 (six) hours as needed. [facility] QUEtiapine (SEROQUEL) tablet 100 mg 06-15 10:15: 00 06-15 09:38 :00 No 100mg 100 mg, Oral, ONCE, 1 dose, On Tue06/15/22 at 0515, Routine [facility] LORazepam (ATIVAN) injection 1 mg 06-15 10:15: 00 06-15 09:40 :00 No 1mg 1 mg, Slow IV Push, ONCE, 1 dose, On Tue06/15/22 at 0515, Routine [facility] HYDROmorpho ne (DILAUDID) injection 1 mg 06-15 09:45: 00 06-15 08:58 :00 No 1mg 1 mg, Slow IV Push, ONCE, 1 dose, On Tue06/15/22 at 0445, Routine
Use approved by (Faculty): ADC PROVIDER [facility] cyclobenzap rine (FLEXERIL) tablet 10 mg 06-15 09:30: 00 Yes 10mg 10 mg, Oral, TID, First dose on Tue06/15/22 at 0430, Until Discontinu ed, Routine [facility] HYDROcodone -acetaminop hen (NORCO 5) 5-325 mg tablet 2 tablet 06-15 09:28: 21 Yes 2{tbl} 2 tablet, Oral, Q6HPRN, Starting on Tue06/15/22 at 0428, Until Discontinu ed, Routine, Pain (scale 4-6) [facility] budesonide (PULMICORT RESPULE) nebulizer solution 0.5 mg 06-15 09:15: 00 Yes .5mg 0.5 mg, Inhalation , BID, First dose on Tue06/15/22 at 0415, Until Discontinu ed, Routine [facility] ipratropium (ATROVENT) 0.02 % nebulizer solution 0.5 mg 06-15 09:15: 00 Yes .5mg 0.5 mg, Inhalation , QID, First dose on Tue06/15/22 at 0415, Until Discontinu ed, Routine [facility] levalbutero l (XOPENEX) nebulizer solution 0.63 mg 06-15 09:15: 00 Yes .63mg 0.63 mg, Inhalation , QID, First dose on Tue06/15/22 at 0415, Until Discontinu ed, Routine [facility] gabapentin (NEURONTIN) capsule 100 mg 06-15 07:45: 00 Yes 100mg 100 mg, Oral, TID, First dose on Tue06/15/22 at 0245, Until Discontinu ed, Routine [facility] traZODone (DESYREL) tablet 100 mg 06-15 07:45: 00 Yes 100mg 100 mg, Oral, QHS, First dose on Tue06/15/22 at 0245, Until Discontinu ed, Routine [facility] QUEtiapine (SEROQUEL) tablet 100 mg 06-15 07:45: 00 06-15 09:29 :20 No 100mg 100 mg, Oral, QHS, First dose on Tue06/15/22 at 0245, Until Discontinu ed, Routine [facility] FENTanyl PF (SUBLIMAZE (PF)) injection 50 mcg 06-15 07:43: 18 06-15 09:29 :20 No 50ug 50 mcg, Slow IV Push, Q4HPRN, Starting on Tue06/15/22 at 0243, Until Tue06/15/22 at 0429, Routine, Pain (scale 7-10) [facility] NaCl 0.9% (NS) IV infusion 1,000 mL 06-15 07:15: 00 Yes 1000mL at 50 mL/hr, IV Infusion, CONTINUOUS , Starting on Tue06/15/22 at 0215, Until Discontinu ed, Routine [facility] morpHINE (4 mg/mL) injection 4 mg 06-15 06:30: 00 06-15 05:30 :00 No 4mg 4 mg, Slow IV Push, ONCE, 1 dose, On Tue06/15/22 at 0130, Routine [facility] sennosides (SENOKOT) tablet 8.6 mg 06-15 06:15: 00 Yes 8.6mg 8.6 mg, Oral, BID, First dose on Tue06/15/22 at 0115, Until Discontinu ed, Routine [facility] docusate (COLACE) capsule 100 mg 06-15 06:15: 00 Yes 100mg 100 mg, Oral, BID, First dose on Tue06/15/22 at 0115, Until Discontinu ed, Routine [facility] HYDROcodone -acetaminop hen (NORCO 5) 5-325 mg tablet 1 tablet 06-15 06:09: 38 06-15 09:29 :20 No 1{tbl} 1 tablet, Oral, Q6HPRN, Starting on Tue06/15/22 at 0109, Until Tue06/15/22 at 0429, Routine, Pain (scale 4-6) [facility] morpHINE (4 mg/mL) injection 4 mg 06-15 06:09: 30 06-15 07:43 :25 No 4mg 4 mg, Slow IV Push, Q2HPRN, Starting on Tue06/15/22 at 0109, Until Tue06/15/22 at 0243, Routine, Pain (scale 7-10) [facility] ondansetron (ZOFRAN (PF)) injection 4 mg 06-15 06:07: 58 Yes 4mg 4 mg, Slow IV Push, Q6HPRN, Starting on Tue06/15/22 at 0107, Until Discontinu ed, Routine, Nausea and Vomiting (N/V) [facility] QUEtiapine (SEROQUEL) 100 mg tablet 06-15 02:38: 43 06-15 00:00 :00 No 100mg Take 100 mg by mouth 2 (two) times daily. [facility] B1/B2/niaci n/B12/prote ase (B-COMPLEX WITH B-12 ORAL) 06-15 02:38: 43 06-15 00:00 :00 No Take by mouth. [facility] cholecalcif shubham, vitamin D3, 1,250 mcg (50,000 unit) tablet 06-15 02:38: 43 06-15 00:00 :00 No Take by mouth. Take one weekly [facility] glecaprevir -pibrentasv ir (MAVYRET) 100-40 mg 06-15 02:38: 43 06-15 00:00 :00 No 3{tbl} Take 3 tablets by mouth daily. [facility] morpHINE (4 mg/mL) injection 4 mg 06-15 01:15: 00 06-15 01:31 :00 No 4mg 4 mg, Slow IV Push, ONCE, 1 dose, On Tue06/14/22 at 2015, Routine [facility] GABAPENTIN 100 MG 06-15 00:00: 00 Yes Oleg Lemon DOCUSATE SODIUM 100 MG 06-15 00:00: 00 Yes Oleg Lemon HYDROCODONE BITARTRATE/ ACETAMINOPH E N 10-325 MG TABS 06-15 00:00: 00 Yes Oleg Lemon TAKE 1 TABLET BY MOUTH EVERY DAY IN THE MORNING 06-15 00:00: 00 Yes Oleg Lemon docusate 100 mg capsule 06-15 00:00: 00 07-16 04:59 :00 No [id number] 100mg Take 1 capsule by mouth in the morning and 1 capsule in the evening. Do all this for 30 days. [facility] gabapentin 100 mg capsule 06-15 00:00: 00 07-16 04:59 :00 No [id number] 100mg Take 1 capsule by mouth in the morning and 1 capsule at noon and 1 capsule in the evening. Do all this for 30 days. [facility] sennosides 8.6 mg tablet 06-15 00:00: 00 07-16 04:59 :00 No [id number] 8.6mg Take 1 tablet by mouth in the morning for 30 days. [facility] HYDROcodone -acetaminop hen (NORCO) 10-325 mg tablet 06-15 00:00: 00 06-23 04:59 :00 No [id number] 1{tbl} Take 1 tablet by mouth every 6 (six) hours as needed for Pain (scale 7-10) for up to 7 days. Indication s: acute pain [facility] morpHINE (4 mg/mL) injection 4 mg 06-14 23:30: 00 06-14 23:43 :00 No 4mg 4 mg, Slow IV Push, ONCE, 1 dose, On Tue06/14/22 at 1830, Routine [facility] morpHINE injection 8 mg 06-14 22:15: 00 06-14 22:20 :00 No 8mg 8 mg, Slow IV Push, ONCE, 1 dose, On Tue06/14/22 at 1715, STAT [facility] TAKE 1 CAPSULE TWICE DAILY. 06-08 00:00: 00 06-28 00:00 :00 No 150 Oleg Lemon TAKE 1 TABLET AT BEDTIME. 06-08 00:00: 00 06-28 00:00 :00 No 200 Oleg Lemon TAKE 1 TABLET BY MOUTH THREE TIMES A DAY 05-24 00:00: 00 Yes Oleg Lemon METHOCARBAM OL 500 MG TABS 05-24 00:00: 00 Yes Oleg Lemon methocarbam oL 500 mg tablet 05-24 00:00: 00 Yes 500mg Take 1 tablet by mouth as needed. [facility] QUEtiapine 200 mg tablet 05-22 00:00: 00 10-29 00:00 :00 No 200mg Take 1 tablet by mouth at bedtime. [facility] TAKE 1 CAPSULE TWICE DAILY. 05-11 00:00: 00 06-28 00:00 :00 No 150 Oleg Lemon QUETIAPINE FUMARATE 200 MG TABS 05-11 00:00: 00 06-28 00:00 :00 No Oleg Lemon INHALE 1 PUFFS BY MOUTH TWICE A DAY 05-05 00:00: 00 Yes Oleg Lemon WIXELA INHUB 250-50 mcg/dose inhalation disk 05-05 00:00: 00 Yes 1{puff} Inhale 1 Puff in the morning and 1 Puff in the evening. [facility] TAKE 1 TABLET ONCE A DAY NEEDED FOR 28 DAY(S) 04-26 00:00: 00 Yes Oleg Lemon TAKE 1 CAPSULE BY MOUTH TWICE A DAY 04-16 00:00: 00 Yes Oleg Lemon TAKE 1 CAPSULE TWICE DAILY. 04-16 00:00: 00 06-28 00:00 :00 No 150 Oleg Lemon TAKE 1 TABLET AT BEDTIME. 04-16 00:00: 00 06-28 00:00 :00 No 200 Oleg Lemon METHOCARBAM OL 500 MG TABS 2-13 00:00: 00 Yes Oleg Lemon VENLAFAXINE HCL ER 150 MG CP24 2- 00:00: 00 Yes Oleg Lemon TAKE 2 TABLETS AT BEDTIME. 2-03 00:00: 00 06-28 00:00 :00 No 100 Oleg Lemon TAKE 1 TABLET AT BEDTIME. 2- 00:00: 00 06-28 00:00 :00 No 200 Oleg Lemon TAKE 1 CAPSULE TWICE DAILY. 2- 00:00: 00 06-28 00:00 :00 No 150 Oleg Lemon TAKE 1 TABLET AT BEDTIME. -18 00:00: 00 06-28 00:00 :00 No Oleg Lemon TAKE 1 TABLET BY MOUTH EVERYDAY AT BEDTIME 03-02 00:00: 00 Yes Oleg Lemon TAKE 1 CAPSULE BY MOUTH TWICE A DAY 03-02 00:00: 00 Yes Oleg Lemon TAKE 2 TABLETS AT BEDTIME. - 00:00: 00 06-28 00:00 :00 No 100 Oleg Lemon TAKE 1 CAPSULE TWICE DAILY. 03-02 00:00: 00 06-28 00:00 :00 No 150 Oleg Lemon TRAMADOL HCL 50 MG TABS -16 00:00: 00 Yes Oleg Lemon TAKE 1 TABLET BY MOUTH EVERY DAY FOR 7 DAYS -16 00:00: 00 Yes Oleg Lemon SPRAY 1 SPRAY INTO EACH NOSTRIL EVERY DAY -04 00:00: 00 Yes Oleg Lemon CETIRIZINE HYDROCHLORI DE 10 MG TABS - 00:00: 00 Yes Oleg Lemon TAKE 1 CAPSULE BY MOUTH TWICE A DAY - 00:00: 00 Yes Oleg Lemon TAKE 1 TABLET BID -04 00:00: 00 06-28 00:00 :00 No 500 Oleg Lemon USE 1 SPRAY IN EACH NOSTRIL ONCE DAILY. 1-04 00:00: 00 06-28 00:00 :00 No 50 Oleg Lemon TAKE 1 CAPSULE BY MOUTH TWICE A DAY 2021-02 00:00: 00 Yes Oleg Lemon TAKE 1 CAPSULE TWICE DAILY. 2021-02 00:00: 00 06-28 00:00 :00 No 150 Oleg Lemon TRAZODONE HYDROCHLORI DE 100 MG TABS 2021-02 00:00: 00 06-28 00:00 :00 No Oleg Lemon OMEPRAZOLE 40 MG CPDR 2021-02 00:00: 00 Yes Oleg Lemon SUPREP BOWEL PREP KIT 17.5-3.13-1 .6 GM/177ML SOLN 2021-02 00:00: 00 Yes Oleg Lemon TAKE 1 TABLET BY MOUTH EVERY DAY NEEDED 2021-02 00:00: 00 Yes Oleg Lemon INHALE 1 PUFF EVERY 12 HOURS. 2021-02 00:00: 00 No 5unit QUETIAPINE FUMARATE 200 MG TABS 2021-02 00:00: 00 No 200 TAKE 2 CAPSULES BY MOUTH EVERY DAY 2021-02 00:00: 00 No 150 ONDANSETRON HYDROCHLORI DE 4 MG TABS 2021-02 00:00: 00 No 4 SYMBICORT 160-4.5 MCG/ACT AERO 2021-02 00:00: 00 No Dose Unknown 2021-02 00:00: 00 No 75 QUETIAPINE FUMARATE 50 MG TABS 2021-02 00:00: 00 No 50 TAKE 1 TABLET BY MOUTH EVERY DAY FOR 7 DAYS 2021-02 00:00: 00 No 500 METRONIDAZO LE 500 MG TABS 2021-02 00:00: 00 No 500 Dose Unknown 2021-02- 00:00: 00 No 10 Dose Unknown 2021-02 00:00: 00 No TAKE 1 PUFF BY MOUTH EVERY 12 HOURS 2021-02 00:00: 00 No TAKE 2 CAPSULES BY MOUTH EVERY DAY 2021-02 00:00: 00 Yes 150 Oleg Lemon ONDANSETRON HYDROCHLORI DE 4 MG TABS 2021-02-16 00:00: 00 Yes 4 Oleg Lemon SYMBICORT 160-4.5 MCG/ACT AERO 2021-02- 00:00: 00 Yes Oleg Lemon Dose Unknown 2021-02 00:00: 00 Yes 75 Oleg Lemon QUETIAPINE FUMARATE 50 MG TABS 2021-02- 00:00: 00 Yes 50 Oleg Lemon TAKE 1 TABLET BY MOUTH EVERY DAY FOR 7 DAYS 2021-02 00:00: 00 Yes 500 Oleg Lemno METRONIDAZO LE 500 MG TABS 2021-02 00:00: 00 Yes 500 Oleg Lemon Dose Unknown 2021-02 00:00: 00 Yes 10 Oleg Lemon Dose Unknown 2021-02 00:00: 00 Yes Oleg Lemon Dose Unknown 2021-02 00:00: 00 Yes Oleg Lemon Dose Unknown 2021-02 00:00: 00 Yes Oleg Lemon QUETIAPINE FUMARATE 200 MG TABS 2021-02 00:00: 00 06-28 00:00 :00 No 200 Oleg Lemon METHOCARBAM OL 500 MG TABS 2021-02 00:00: 00 Yes Oleg Lemon TRAMADOL HCL 50 MG TABS 2021-02 00:00: 00 Yes Oleg Lemon TAKE 1 CAPSULE BY MOUTH EVERY DAY 2021-02 2- 00:00: 00 No 4 TAKE 1 CAPSULE BY MOUTH EVERY DAY 2021-02 00:00: 00 Yes 4 Oleg Lemon TAKE 1 TABLET BY MOUTH EVERYDAY AT BEDTIME 2021-02 00:00: 00 Yes Oleg Lemon TAKE 1 PUFF BY MOUTH EVERY 12 HOURS 2021-02- 00:00: 00 Yes Oleg Lemon INHALE 1 PUFF EVERY 12 HOURS. 2021-02- 00:00: 00 06-28 00:00 :00 No [id number] it Oleg Lemon TAKE 1 TABLET BY MOUTH THREE TIMES A DAY 2021-02- 00:00: 00 Yes Oleg Lemon TAKE 1 TABLET BY MOUTH EVERY DAY FOR 7 DAYS 2022-1 1-10 00:00: 00 Yes Oleg Lemon TAKE 1 TABLET BY MOUTH EVERY DAY 2021-02 0-19 00:00: 00 Yes Oleg Lemon TAKE 1 TABLET BY MOUTH EVERYDAY AT BEDTIME 1 0-19 00:00: 00 Yes Oleg Lemon TAKE 2 TABLETS BY MOUTH EVERY DAY AT BEDTIME 1 0-19 00:00: 00 06-28 00:00 :00 No Oleg Lemon Dose Unknown 2021-02 0-18 00:00: 00 No Dose Unknown 2021-02 0-18 00:00: 00 Yes Oleg Lemon TRAMADOL HCL 50 MG TABS 2021-02 0-13 00:00: 00 Yes Oleg Lemon METHOCARBAM OL 500 MG TABS 2021-02 0- 00:00: 00 Yes Oleg Lemon TRAZODONE HYDROCHLORI DE 100 MG TABS 2021-02 0- 00:00: 00 06-28 00:00 :00 No Oleg Lemon TAKE 1 TABLET AT BEDTIME. 2021-02 0-03 00:00: 00 No Dose Unknown 2021-02 0-03 00:00: 00 Yes Oleg Lemon Dose Unknown 2021-02 0-03 00:00: 00 06-28 00:00 :00 No Oleg Lemon QUETIAPINE FUMARATE 300 MG TABS 0 - 00:00: 00 Yes Oleg Lemon TRAZODONE HYDROCHLORI DE 100 MG TABS 0 11-10 00:00: 00 06-28 00:00 :00 No Oleg Lemon TAKE 1 TABLET BY MOUTH EVERYDAY AT BEDTIME 2021-0 - 00:00: 00 No 50 Dose Unknown 0 - 00:00: 00 No 100 TAKE 2 TABLETS BY MOUTH AT BEDTIME NEEDED 2021-0 - 00:00: 00 No TAKE 1 TABLET BY MOUTH EVERYDAY AT BEDTIME 0 - 00:00: 00 Yes 50 Oleg Lemon QUETIAPINE FUMARATE 100 MG TABS 0 - 00:00: 00 Yes Oleg Lemon TAKE 2 TABLETS BY MOUTH AT BEDTIME NEEDED 0 - 00:00: 00 2024- 05-15 00:00 :00 No Oleg Lemon TRAMADOL HCL 50 MG TABS 9-24 00:00: 00 No 50 TRAMADOL HCL 50 MG TABS -24 00:00: 00 Yes Oleg Lemon Dose Unknown - 00:00: 00 No Dose Unknown 11-05 00:00: 00 Yes Oleg Lemon TAKE 1 TABLET BY MOUTH EVERY DAY FOR 7 DAYS 15 00:00: 00 Yes Oleg Lemon Dose Unknown - 00:00: 00 No 75 TAKE 1 CAPSULE BY MOUTH EVERY DAY (ADD TO 150 MG FOR TOTAL OF 225 MG) - 00:00: 00 Yes Oleg Lemon VENLAFAXINE HCL ER 150 MG CP24 - 00:00: 00 No 150 TAKE 1 TABLET DAILY. - 00:00: 00 No VENLAFAXINE HCL ER 150 MG CP24 8-31 00:00: 00 No 150 TAKE 1 TABLET DAILY. - 00:00: 00 No 225 TAKE 1 TABLET DAILY. 8- 00:00: 00 Yes 4unit Oleg Lemon VENLAFAXINE HCL ER 150 MG CP24 8- 00:00: 00 Yes Oleg Lemon OMEPRAZOLE 40 MG CPDR 8-25 00:00: 00 No 40 OMEPRAZOLE 40 MG CPDR 8- 00:00: 00 No 40 OMEPRAZOLE 40 MG CPDR 8-25 00:00: 00 Yes 40 Oleg Lemon VENLAFAXINE HYDROCHLORI DE ER 225 MG TB24 8-25 00:00: 00 Yes Oleg Lemon QUETIAPINE FUMARATE 100 MG TABS 8-25 00:00: 00 Yes Oleg Lemon trazodone 100 mg tablet -17 00:00: 00 No 2mg Seroquel 100 mg tablet 8- 00:00: 00 No 1mg Dose Unknown - 00:00: 00 No TAKE 1 TABLET AT BEDTIME. - 00:00: 00 No trazodone 100 mg tablet 2-0 8-17 00:00: 00 No 2mg Seroquel 100 mg tablet 2021-0 8-17 00:00: 00 No 1mg venlafaxine ER 150 mg capsule,ext ended release 24 hr 2021-0 8-17 00:00: 00 No 2mg trazodone 100 mg tablet 2021-0 8-17 00:00: 00 Yes 2mg Oleg Lemon Seroquel 100 mg tablet 2021-0 8-17 00:00: 00 Yes 1mg Oleg Lemon venlafaxine ER 150 mg capsule,ext ended release 24 hr 0 8-17 00:00: 00 Yes 2mg Oleg Lemon TAKE 1 TABLET BY MOUTH NIGHTLY 2021-0 8-17 00:00: 00 Yes Oleg Lemon Dose Unknown 0 8-16 00:00: 00 No 300 Dose Unknown 0 8-16 00:00: 00 No 300 Dose Unknown 0 8-16 00:00: 00 Yes 300 Oleg Lemon &lt 2-0 7- 00:00: 00 No TAKE 1 TABLET BY MOUTH NIGHTLY 2-0 7 00:00: 00 No 100 &lt 2022-0 7 00:00: 00 No 40 &lt 2022-0 7- 00:00: 00 No TAKE 1 TABLET BY MOUTH NIGHTLY 2021-0 7 00:00: 00 No 100 &lt 2-0 7 00:00: 00 No 40 &lt 2022-0 7 00:00: 00 Yes Oleg Lemon TAKE 1 TABLET BY MOUTH NIGHTLY 2021-0 7 00:00: 00 Yes 100 Oleg Lemon &lt 2-0 7 00:00: 00 Yes 40 Oleg Lemon TAKE 1 TABLET TWICE A DAY WITH FOOD FOR 7 DAYS THEN 1 TABLET EVERY OTHER DAY X 14 DAYS 2021-0 - 00:00: 00 No 10 Dose Unknown 2021-0 7- 00:00: 00 No 300 TAKE 1 TABLET TWICE A DAY WITH FOOD FOR 7 DAYS THEN 1 TABLET EVERY OTHER DAY X 14 DAYS 2021-0 7- 00:00: 00 No 10 Dose Unknown 2021-0 7- 00:00: 00 No 300 TAKE 1 TABLET TWICE A DAY WITH FOOD FOR 7 DAYS THEN 1 TABLET EVERY OTHER DAY X 14 DAYS 0 09-03 00:00: 00 Yes 10 Oleg Lemon Dose Unknown 0 09-03 00:00: 00 Yes 300 Oleg Lemon TAKE 1 CAPSULE BY MOUTH DAILY ADD TO 150 MG FOR TOTAL OF 225 MG DAILY 0 08-18 00:00: 00 No 75 TAKE 1 CAPSULE BY MOUTH DAILY ADD TO 150 MG FOR TOTAL OF 225 MG DAILY 0 08-18 00:00: 00 No 75 TAKE 1 CAPSULE BY MOUTH DAILY ADD TO 150 MG FOR TOTAL OF 225 MG DAILY 0 08-18 00:00: 00 No 75 TAKE 1 CAPSULE BY MOUTH DAILY ADD TO 150 MG FOR TOTAL OF 225 MG DAILY 0 08-18 00:00: 00 Yes 75 Oleg Lemon &lt 0 - 00:00: 00 No 100 &lt 2021-0 7- 00:00: 00 No 100 &lt 2021-0 - 00:00: 00 No 100 &lt 2021-0 - 00:00: 00 Yes 100 Oleg Lemon Symbicort 160 mcg-4.5 mcg/actuati on HFA aerosol inhaler 0 08-14 00:00: 00 No 1mcg/ac tuation &lt 2021-0 08-14 00:00: 00 No &lt 2021-0 08-14 00:00: 00 No TAKE 2 TABLETS BY MOUTH AT BEDTIME NEEDED 0 08-14 00:00: 00 No TAKE 1 TABLET BY MOUTH TWICE A DAY 0 08-14 00:00: 00 No &lt 2021-0 08-14 00:00: 00 No TAKE 1 TABLET TWICE A DAY WITH FOOD FOR 7 DAYS THEN 1 TABLET EVERY OTHER DAY X 14 DAYS 0 08-14 00:00: 00 No &lt 2021-0 7- 00:00: 00 No Symbicort 160 mcg-4.5 mcg/actuati on HFA aerosol inhaler 0 08-14 00:00: 00 No 1mcg/ac tuation &lt 2021-0 7- 00:00: 00 No &lt 2021-0 08-14 00:00: 00 No TAKE 2 TABLETS BY MOUTH AT BEDTIME NEEDED 2021-0 7- 00:00: 00 No TAKE 1 TABLET BY MOUTH TWICE A DAY 2021-0 7- 00:00: 00 No &lt 2021-0 7 00:00: 00 No TAKE 1 TABLET TWICE A DAY WITH FOOD FOR 7 DAYS THEN 1 TABLET EVERY OTHER DAY X 14 DAYS 0 7- 00:00: 00 No &lt 2021-0 7- 00:00: 00 No Symbicort 160 mcg-4.5 mcg/actuati on HFA aerosol inhaler 0 7- 00:00: 00 No 1mcg/ac tuation &lt 0 7 00:00: 00 No &lt 2021-0 7 00:00: 00 No TAKE 2 TABLETS BY MOUTH AT BEDTIME NEEDED 2021-0 7- 00:00: 00 No TAKE 1 TABLET BY MOUTH TWICE A DAY 2021-0 7 00:00: 00 No &lt 2021-0 7 00:00: 00 No TAKE 1 TABLET TWICE A DAY WITH FOOD FOR 7 DAYS THEN 1 TABLET EVERY OTHER DAY X 14 DAYS 0 08-14 00:00: 00 No &lt 2021-0 7 00:00: 00 No Symbicort 160 mcg-4.5 mcg/actuati on HFA aerosol inhaler 0 08-14 00:00: 00 Yes 1mcg/ac tuation Oleg Lemon &lt 0 7- 00:00: 00 Yes Oleg Sandra Ion &lt 0 08-14 00:00: 00 Yes Oleg Lemon TAKE 2 TABLETS BY MOUTH AT BEDTIME NEEDED 2021-0 7 00:00: 00 Yes Oleg Lemon TAKE 1 TABLET BY MOUTH TWICE A DAY 0 7 00:00: 00 Yes Oleg Sandra Ion &lt 2021-0 08-14 00:00: 00 Yes Oleg Lemon TAKE 1 TABLET TWICE A DAY WITH FOOD FOR 7 DAYS THEN 1 TABLET EVERY OTHER DAY X 14 DAYS 0 08-14 00:00: 00 Yes Oleg Sandra Ion &lt 0 08-14 00:00: 00 Yes Oleg Lemon trazodone 100 mg tablet 2021-0 08-06 00:00: 00 No 2mg Seroquel 100 mg tablet 2021-0 08-06 00:00: 00 No 1mg venlafaxine ER 150 mg capsule,ext ended release 24 hr 2021-0 08-06 00:00: 00 No 2mg &lt 2-0 08-06 00:00: 00 No TAKE 1 TABLET BY MOUTH EVERYDAY AT BEDTIME 2021-0 08-06 00:00: 00 No &lt 2-0 08-06 00:00: 00 No trazodone 100 mg tablet 0 08-06 00:00: 00 No 2mg Seroquel 100 mg tablet 0 08-06 00:00: 00 No 1mg venlafaxine ER 150 mg capsule,ext ended release 24 hr 2021-0 08-06 00:00: 00 No 2mg &lt 2021-0 08-06 00:00: 00 No TAKE 1 TABLET BY MOUTH EVERYDAY AT BEDTIME 2021-0 08-06 00:00: 00 No &lt 2021-0 08-06 00:00: 00 No trazodone 100 mg tablet 2021-0 08-06 00:00: 00 No 2mg Seroquel 100 mg tablet 2021-0 08-06 00:00: 00 No 1mg venlafaxine ER 150 mg capsule,ext ended release 24 hr 0 08-06 00:00: 00 No 2mg &lt 2021-0 08-06 00:00: 00 No TAKE 1 TABLET BY MOUTH EVERYDAY AT BEDTIME 2021-0 08-06 00:00: 00 No &lt 2021-0 08-06 00:00: 00 No trazodone 100 mg tablet 2021-0 08-06 00:00: 00 Yes 2mg Oleg Flores Ion Seroquel 100 mg tablet 2021-0 08-06 00:00: 00 Yes 1mg Oleg Sandra Ion venlafaxine ER 150 mg capsule,ext ended release 24 hr 2021-0 08-06 00:00: 00 Yes 2mg Oleg Sandra Lemon &lt 2-0 08-06 00:00: 00 Yes Oleg Sandra Ion TAKE 1 TABLET BY MOUTH EVERYDAY AT BEDTIME 2021-0 08-06 00:00: 00 Yes Oleg Sandra Ion &lt 2022-0 08-06 00:00: 00 Yes Oleg Lemon trazodone 100 mg tablet 0 07-23 00:00: 00 No 2mg Seroquel 200 mg tablet 0 07-23 00:00: 00 No 1mg Dose Unknown 07-23 00:00: 00 No TAKE 1 CAPSULE BY MOUTH DAILY ADD TO 150 MG FOR TOTAL OF 225 MG DAILY 07-23 00:00: 00 No &lt 0 07-23 00:00: 00 No &lt 0 07-23 00:00: 00 No TAKE 1 TABLET AT BEDTIME. 0 07-23 00:00: 00 No trazodone 100 mg tablet 07-23 00:00: 00 No 2mg Seroquel 200 mg tablet 07-23 00:00: 00 No 1mg venlafaxine ER 150 mg capsule,ext ended release 24 hr 0 07-23 00:00: 00 No 2mg TAKE 1 CAPSULE BY MOUTH DAILY ADD TO 150 MG FOR TOTAL OF 225 MG DAILY 07-23 00:00: 00 No &lt 0 07-23 00:00: 00 No &lt 0 07-23 00:00: 00 No trazodone 100 mg tablet 07-23 00:00: 00 No 2mg Seroquel 200 mg tablet 0 07-23 00:00: 00 No 1mg venlafaxine ER 150 mg capsule,ext ended release 24 hr 07-23 00:00: 00 No 2mg TAKE 1 CAPSULE BY MOUTH DAILY ADD TO 150 MG FOR TOTAL OF 225 MG DAILY 07-23 00:00: 00 No &lt 0 07-23 00:00: 00 No &lt 0 07-23 00:00: 00 No trazodone 100 mg tablet 07-23 00:00: 00 Yes 2mg Oleg Lemon Seroquel 200 mg tablet 0 07-23 00:00: 00 Yes 1mg Oleg Lemon venlafaxine ER 150 mg capsule,ext ended release 24 hr 07-23 00:00: 00 Yes 2mg Oleg Lemon TAKE 1 CAPSULE BY MOUTH DAILY ADD TO 150 MG FOR TOTAL OF 225 MG DAILY 2021-0 - 00:00: 00 Yes Oleg Lemon &lt 2021-0 6- 00:00: 00 Yes Oleg Lemon &lt 2021-0 - 00:00: 00 Yes Oleg Lemon OMEPRAZOLE 40 MG CPDR 0 6-06 00:00: 00 Yes Oleg Lemon trazodone 100 mg tablet 2021-0 -24 00:00: 00 No 2mg Seroquel 200 mg tablet 0 24 00:00: 00 No 1mg Dose Unknown 0 24 00:00: 00 No TAKE 1 TABLET AT BEDTIME. 0 24 00:00: 00 No trazodone 100 mg tablet 0 -24 00:00: 00 No 2mg Seroquel 200 mg tablet 0 24 00:00: 00 No 1mg venlafaxine ER 150 mg capsule,ext ended release 24 hr 2021-0 -24 00:00: 00 No 2mg trazodone 100 mg tablet 2021-0 24 00:00: 00 No 2mg Seroquel 200 mg tablet 2021-0 24 00:00: 00 No 1mg venlafaxine ER 150 mg capsule,ext ended release 24 hr 2021-0 -24 00:00: 00 No 2mg trazodone 100 mg tablet 2021-0 24 00:00: 00 Yes 2mg Olge Lemon Seroquel 200 mg tablet 2021-0 24 00:00: 00 Yes 1mg Oleg Lemon venlafaxine ER 150 mg capsule,ext ended release 24 hr 2021-0 24 00:00: 00 Yes 2mg Oleg Lemon TAKE 1 TABLET BY MOUTH NIGHTLY 0 24 00:00: 00 06-28 00:00 :00 No Oleg Lemon TAKE 1 CAPSULE BY MOUTH EVERY DAY 2021-0 06-13 00:00: 00 Yes Oleg Lemon Dose Unknown 0 06-11 00:00: 00 No Dose Unknown 0 06-11 00:00: 00 No Dose Unknown 2022-0 4-28 00:00: 00 No Dose Unknown 2022-0 4-28 00:00: 00 No Dose Unknown 2022-0 4-28 00:00: 00 No Dose Unknown 2022-0 4-28 00:00: 00 No Dose Unknown 2022-0 4-28 00:00: 00 No Dose Unknown 2022-0 4-28 00:00: 00 No Dose Unknown 2022-0 4-28 00:00: 00 No Dose Unknown 2022-0 4-28 00:00: 00 Yes Oleg Lemon Dose Unknown 2022-0 4-28 00:00: 00 Yes Oleg Lemon Dose Unknown 2022-0 4-28 00:00: 00 Yes Oleg Lemon QUETIAPINE FUMARATE 200 MG TABS 2022-0 4-28 00:00: 00 2023- 05-15 00:00 :00 No Oleg Lemon TRAMADOL HCL 50 MG TABS 2022-0 4-25 00:00: 00 Yes Oleg Lemon Dose Unknown 2022-0 3-31 00:00: 00 No Dose Unknown 2022-0 3-31 00:00: 00 No Dose Unknown 2022-0 3-31 00:00: 00 No Dose Unknown 2022-0 3-31 00:00: 00 No Dose Unknown 2022-0 3-31 00:00: 00 No Dose Unknown 2022-0 3-31 00:00: 00 No Dose Unknown 2022-0 3-31 00:00: 00 No Dose Unknown 2022-0 3-31 00:00: 00 No Dose Unknown 2022-0 3-31 00:00: 00 No Dose Unknown 2022-0 3-31 00:00: 00 No Dose Unknown 2022-0 3-31 00:00: 00 No Dose Unknown 2022-0 3-31 00:00: 00 No Dose Unknown 2022-0 3-31 00:00: 00 No Dose Unknown 2022-0 3-31 00:00: 00 No Dose Unknown 2022-0 3-31 00:00: 00 No Dose Unknown 2022-0 3-31 00:00: 00 Yes Oleg Lemon Dose Unknown 2022-0 3-31 00:00: 00 Yes Oleg Lemon Dose Unknown 2022-0 3-31 00:00: 00 Yes Oleg Lemon Dose Unknown 2022-0 3-31 00:00: 00 Yes Oleg Lemon Dose Unknown 2022-0 3-31 00:00: 00 Yes Oleg Lemon Dose Unknown 2022-0 3-29 00:00: 00 No Dose Unknown 2022-0 3-29 00:00: 00 No Dose Unknown 2022-0 3-29 00:00: 00 No Dose Unknown 2022-0 3-29 00:00: 00 No Dose Unknown 2022-0 3-29 00:00: 00 No Dose Unknown 2022-0 3-29 00:00: 00 No Dose Unknown 2022-0 3-29 00:00: 00 Yes Oleg Lemon Dose Unknown 2022-0 3-29 00:00: 00 Yes Oleg Lemon Dose Unknown 2022-0 3-21 00:00: 00 No Dose Unknown 2022-0 3-21 00:00: 00 No Dose Unknown 2022-0 3-21 00:00: 00 No Dose Unknown 2022-0 3-21 00:00: 00 No Dose Unknown 2022-0 3-21 00:00: 00 No Dose Unknown 2022-0 3-21 00:00: 00 No Dose Unknown 2022-0 3-21 00:00: 00 Yes Oleg Lemon Dose Unknown 2022-0 3-21 00:00: 00 Yes Oleg Lemon Dose Unknown 2022-0 3-15 00:00: 00 No Dose Unknown 2022-0 3-15 00:00: 00 No Dose Unknown 2022-0 3-15 00:00: 00 No Dose Unknown 2022-0 3-15 00:00: 00 No Dose Unknown 2022-0 3-15 00:00: 00 No Dose Unknown 2022-0 3-15 00:00: 00 No Dose Unknown 2022-0 3-15 00:00: 00 Yes Oleg Lemon Dose Unknown 2022-0 3-15 00:00: 00 Yes Oleg Lemon ONDANSETRON HYDROCHLORI DE 4 MG TABS 2022-0 3-09 00:00: 00 Yes Oleg Lemon Dose Unknown 2022-0 3-01 00:00: 00 No Dose Unknown 2022-0 3-01 00:00: 00 No Dose Unknown 2022-0 3-01 00:00: 00 No Dose Unknown 2022-0 3-01 00:00: 00 No Dose Unknown 2022-0 3-01 00:00: 00 No Dose Unknown 2-0 3-01 00:00: 00 No Dose Unknown 2021-0 3-01 00:00: 00 No Dose Unknown 2021-0 3-01 00:00: 00 No Dose Unknown 2-0 3- 00:00: 00 No Dose Unknown 2021-0 3- 00:00: 00 Yes Oleg Lemon Dose Unknown 2021-0 3- 00:00: 00 Yes Oleg Lemon Dose Unknown 2021-0 3-01 00:00: 00 Yes Oleg Lemon TAKE 1 TABLET BY MOUTH TWICE A DAY 2-0 2-28 00:00: 00 Yes Oleg Lemon Dose Unknown 2021-0 2-18 00:00: 00 No Seroquel 300 mg tablet 2021-0 2-18 00:00: 00 No 1mg Dose Unknown 2021-0 2-18 00:00: 00 No Dose Unknown 2021-0 2-18 00:00: 00 No Seroquel 300 mg tablet 2-0 2-18 00:00: 00 No 1mg Dose Unknown 2021-0 2-18 00:00: 00 No Dose Unknown 2-0 2-18 00:00: 00 No Seroquel 300 mg tablet 2-0 2-18 00:00: 00 No 1mg Dose Unknown 2021-0 2-18 00:00: 00 No Dose Unknown 2-0 2-18 00:00: 00 Yes Oleg Lemon Seroquel 300 mg tablet 2-0 2-18 00:00: 00 Yes 1mg Oleg Lemon Dose Unknown 2021-0 2-18 00:00: 00 Yes Oleg Lemon QUETIAPINE FUMARATE 300 MG TABS 2-0 2-18 00:00: 00 Yes Oleg Lemon Seroquel 300 mg tablet 2021-0 1-20 00:00: 00 No 1mg trazodone 100 mg tablet 2-0 1-20 00:00: 00 No 2mg venlafaxine ER 150 mg capsule,ext ended release 24 hr 2-0 1-20 00:00: 00 No 2mg Seroquel 300 mg tablet 2-0 1-20 00:00: 00 No 1mg trazodone 100 mg tablet 0 - 00:00: 00 No 2mg venlafaxine ER 150 mg capsule,ext ended release 24 hr 03-05 00:00: 00 No 2mg Seroquel 300 mg tablet 03-05 00:00: 00 No 1mg trazodone 100 mg tablet 03-05 00:00: 00 No 2mg venlafaxine ER 150 mg capsule,ext ended release 24 hr 03-05 00:00: 00 No 2mg Seroquel 300 mg tablet 03-05 00:00: 00 Yes 1mg Olge Lemon trazodone 100 mg tablet 03-05 00:00: 00 Yes 2mg Oleg Lemon venlafaxine ER 150 mg capsule,ext ended release 24 hr 03-05 00:00: 00 Yes 2mg Oleg Lemon Symbicort 160 mcg-4.5 mcg/actuati on HFA aerosol inhaler 02-25 00:00: 00 No 1mcg/ac tuation Symbicort 160 mcg-4.5 mcg/actuati on HFA aerosol inhaler 02-25 00:00: 00 No 1mcg/ac tuation Symbicort 160 mcg-4.5 mcg/actuati on HFA aerosol inhaler 02-25 00:00: 00 No 1mcg/ac tuation Symbicort 160 mcg-4.5 mcg/actuati on HFA aerosol inhaler 02-25 00:00: 00 Yes 1mcg/ac shahzad Lemon Dose Unknown 2020-02- 00:00: 00 No Seroquel 50 mg tablet 2020-02- 00:00: 00 No 1mg Seroquel 100 mg tablet 2020-02- 00:00: 00 No 2mg venlafaxine ER 150 mg capsule,ext ended release 24 hr 2020-02- 00:00: 00 No 2mg Dose Unknown 2020-02 2- 00:00: 00 No Seroquel 50 mg tablet 2020-02 2- 00:00: 00 No 1mg Seroquel 100 mg tablet 2020-02 00:00: 00 No 2mg venlafaxine ER 150 mg capsule,ext ended release 24 hr 2020-02 00:00: 00 No 2mg Dose Unknown 2020-02 00:00: 00 No Seroquel 50 mg tablet 2020-02 00:00: 00 No 1mg Seroquel 100 mg tablet 2020-02 00:00: 00 No 2mg venlafaxine ER 150 mg capsule,ext ended release 24 hr 2020-02 00:00: 00 No 2mg Dose Unknown 2020-02 00:00: 00 Yes Oleg Lemon Seroquel 50 mg tablet 2020-02 00:00: 00 Yes 1mg Oleg Lemon Seroquel 100 mg tablet 2020-02 00:00: 00 Yes 2mg Oleg Lemon venlafaxine ER 150 mg capsule,ext ended release 24 hr 2020-02 00:00: 00 Yes 2mg Oleg Lemon Seroquel 50 mg tablet 2020-02 00:00: 00 No 1mg trazodone 100 mg tablet 2020-02 00:00: 00 No 2mg Seroquel 100 mg tablet 2020-02 00:00: 00 No 2mg venlafaxine ER 150 mg capsule,ext ended release 24 hr 2020-02 00:00: 00 No 2mg Seroquel 50 mg tablet 2020-02 00:00: 00 No 1mg trazodone 100 mg tablet 2020-02 00:00: 00 No 2mg Seroquel 100 mg tablet 2020-02 00:00: 00 No 2mg venlafaxine ER 150 mg capsule,ext ended release 24 hr 2020-02 00:00: 00 No 2mg Seroquel 50 mg tablet 2020-02 00:00: 00 No 1mg trazodone 100 mg tablet 2020-02 00:00: 00 No 2mg Seroquel 100 mg tablet 2020-02 00:00: 00 No 2mg venlafaxine ER 150 mg capsule,ext ended release 24 hr 2020-02 00:00: 00 No 2mg Seroquel 50 mg tablet 2020-02 00:00: 00 Yes 1mg Oleg Lemon trazodone 100 mg tablet 2020-02 00:00: 00 Yes 2mg Oleg Lemon Seroquel 100 mg tablet 2020-02 00:00: 00 Yes 2mg Oleg Lemon venlafaxine ER 150 mg capsule,ext ended release 24 hr 2020-02 00:00: 00 Yes 2mg Oleg Lemon trazodone 100 mg tablet 2020-02 00:00: 00 No 2mg Seroquel 100 mg tablet 2020-02 00:00: 00 No 2mg venlafaxine ER 150 mg capsule,ext ended release 24 hr 2020-02 00:00: 00 No 2mg trazodone 100 mg tablet 2020-02 00:00: 00 No 2mg Seroquel 100 mg tablet 2020-02 00:00: 00 No 2mg venlafaxine ER 150 mg capsule,ext ended release 24 hr 2020-02 00:00: 00 No 2mg trazodone 100 mg tablet 2020-02 00:00: 00 No 2mg Seroquel 100 mg tablet 2020-02 00:00: 00 No 2mg venlafaxine ER 150 mg capsule,ext ended release 24 hr 2020-02 00:00: 00 No 2mg trazodone 100 mg tablet 2020-02 00:00: 00 Yes 2mg Oleg Lemon Seroquel 100 mg tablet 2020-02 00:00: 00 Yes 2mg Oleg Lemon venlafaxine ER 150 mg capsule,ext ended release 24 hr 2020-02 00:00: 00 Yes 2mg Oleg Lemon trazodone 100 mg tablet 11-10 00:00: 00 No 2mg trazodone 100 mg tablet 11-10 00:00: 00 No 2mg trazodone 100 mg tablet 11-10 00:00: 00 No 2mg trazodone 100 mg tablet 11-10 00:00: 00 Yes 2mg Oleg Lemon trazodone 100 mg tablet 11-04 00:00: 00 No 2mg trazodone 100 mg tablet 11-04 00:00: 00 No 1mg Seroquel 100 mg tablet 11-04 00:00: 00 No 2mg venlafaxine ER 150 mg capsule,ext ended release 24 hr 0 11-04 00:00: 00 No 1mg venlafaxine ER 75 mg capsule,ext ended release 24 hr 11-04 00:00: 00 No 1mg trazodone 100 mg tablet 11-04 00:00: 00 No 2mg trazodone 100 mg tablet 11-04 00:00: 00 No 1mg Seroquel 100 mg tablet 11-04 00:00: 00 No 2mg venlafaxine ER 150 mg capsule,ext ended release 24 hr 11-04 00:00: 00 No 1mg venlafaxine ER 75 mg capsule,ext ended release 24 hr 11-04 00:00: 00 No 1mg trazodone 100 mg tablet 11-04 00:00: 00 No 2mg trazodone 100 mg tablet 11-04 00:00: 00 No 1mg Seroquel 100 mg tablet 11-04 00:00: 00 No 2mg venlafaxine ER 150 mg capsule,ext ended release 24 hr 0 11-04 00:00: 00 No 1mg venlafaxine ER 75 mg capsule,ext ended release 24 hr 0 11-04 00:00: 00 No 1mg trazodone 100 mg tablet 11-04 00:00: 00 Yes 2mg Oleg Lemon Seroquel 100 mg tablet 11-04 00:00: 00 Yes 2mg Oleg Lemon venlafaxine ER 150 mg capsule,ext ended release 24 hr 0 11-04 00:00: 00 Yes 1mg Oleg Lemon venlafaxine ER 75 mg capsule,ext ended release 24 hr 2021-0 9-21 00:00: 00 Yes 1mg Oleg Lemon trazodone 100 mg tablet 2020-0 8-24 00:00: 00 No 1mg Seroquel 100 mg tablet 2020-0 8-24 00:00: 00 No 2mg venlafaxine ER 150 mg capsule,ext ended release 24 hr 2020-0 8-24 00:00: 00 No 1mg venlafaxine ER 75 mg capsule,ext ended release 24 hr 1-0 8-24 00:00: 00 No 1mg trazodone 100 mg tablet 2020-0 8-24 00:00: 00 No 1mg Seroquel 100 mg tablet 2020-0 8-24 00:00: 00 No 2mg venlafaxine ER 150 mg capsule,ext ended release 24 hr 2020-0 8-24 00:00: 00 No 1mg venlafaxine ER 75 mg capsule,ext ended release 24 hr 2020-0 8-24 00:00: 00 No 1mg trazodone 100 mg tablet 2020-0 8-24 00:00: 00 No 1mg Seroquel 100 mg tablet 2020-0 8-24 00:00: 00 No 2mg venlafaxine ER 150 mg capsule,ext ended release 24 hr 2020-0 8-24 00:00: 00 No 1mg venlafaxine ER 75 mg capsule,ext ended release 24 hr 2020-0 8-24 00:00: 00 No 1mg trazodone 100 mg tablet 2020-0 8-24 00:00: 00 Yes 1mg Oleg Lemon Seroquel 100 mg tablet 2020-0 8-24 00:00: 00 Yes 2mg Oleg Lemon venlafaxine ER 150 mg capsule,ext ended release 24 hr 2020-0 8-24 00:00: 00 Yes 1mg Oleg Lemon venlafaxine ER 75 mg capsule,ext ended release 24 hr 2020-0 8-24 00:00: 00 Yes 1mg Oleg Lemon Seroquel 100 mg tablet 2020-0 7-29 00:00: 00 No 2mg trazodone 100 mg tablet 2020-0 7-29 00:00: 00 No 1mg venlafaxine ER 75 mg capsule,ext ended release 24 hr 2020-0 09-11 00:00: 00 No 1mg venlafaxine ER 150 mg capsule,ext ended release 24 hr 2020-0 09-11 00:00: 00 No 1mg Seroquel 100 mg tablet 0 09-11 00:00: 00 No 2mg trazodone 100 mg tablet 2020-0 09-11 00:00: 00 No 1mg venlafaxine ER 75 mg capsule,ext ended release 24 hr 2020-0 09-11 00:00: 00 No 1mg venlafaxine ER 150 mg capsule,ext ended release 24 hr 2020-0 09-11 00:00: 00 No 1mg Seroquel 100 mg tablet 0 09-11 00:00: 00 No 2mg trazodone 100 mg tablet 0 09-11 00:00: 00 No 1mg venlafaxine ER 75 mg capsule,ext ended release 24 hr 2020-0 09-11 00:00: 00 No 1mg venlafaxine ER 150 mg capsule,ext ended release 24 hr 2020-0 09-11 00:00: 00 No 1mg Seroquel 100 mg tablet 0 09-11 00:00: 00 Yes 2mg Oleg Lemon trazodone 100 mg tablet 0 09-11 00:00: 00 Yes 1mg Oleg Lemon venlafaxine ER 75 mg capsule,ext ended release 24 hr 2020-0 09-11 00:00: 00 Yes 1mg Oleg Lemon venlafaxine ER 150 mg capsule,ext ended release 24 hr 2020-0 09-11 00:00: 00 Yes 1mg Oleg Lemon Flagyl 500 mg tablet 0 08-07 00:00: 00 No 1mg trazodone 100 mg tablet 0 6 00:00: 00 No 2mg Seroquel 100 mg tablet 0 08-07 00:00: 00 No 1mg venlafaxine ER 75 mg capsule,ext ended release 24 hr 2020-0 08-07 00:00: 00 No 1mg venlafaxine ER 150 mg capsule,ext ended release 24 hr 2020-0 6 00:00: 00 No 1mg Flagyl 500 mg tablet 08-07 00:00: 00 No 1mg trazodone 100 mg tablet 0 08-07 00:00: 00 No 2mg Seroquel 100 mg tablet 08-07 00:00: 00 No 1mg venlafaxine ER 75 mg capsule,ext ended release 24 hr 0 08-07 00:00: 00 No 1mg venlafaxine ER 150 mg capsule,ext ended release 24 hr 0 08-07 00:00: 00 No 1mg Flagyl 500 mg tablet 08-07 00:00: 00 No 1mg trazodone 100 mg tablet 08-07 00:00: 00 No 2mg Seroquel 100 mg tablet 08-07 00:00: 00 No 1mg venlafaxine ER 75 mg capsule,ext ended release 24 hr 0 08-07 00:00: 00 No 1mg venlafaxine ER 150 mg capsule,ext ended release 24 hr 08-07 00:00: 00 No 1mg Flagyl 500 mg tablet 08-07 00:00: 00 Yes 1mg Oleg Lemon trazodone 100 mg tablet 08-07 00:00: 00 Yes 2mg Oleg Lemon Seroquel 100 mg tablet 08-07 00:00: 00 Yes 1mg Oleg Lemon venlafaxine ER 75 mg capsule,ext ended release 24 hr 08-07 00:00: 00 Yes 1mg Oleg Lemon venlafaxine ER 150 mg capsule,ext ended release 24 hr 08-07 00:00: 00 Yes 1mg Oleg Lemon Seroquel 100 mg tablet 07-10 00:00: 00 No 1mg trazodone 100 mg tablet 0 07-10 00:00: 00 No 2mg venlafaxine ER 150 mg capsule,ext ended release 24 hr 0 07-10 00:00: 00 No 1mg venlafaxine ER 75 mg capsule,ext ended release 24 hr 2020-0 07-10 00:00: 00 No 1mg Seroquel 100 mg tablet 0 07-10 00:00: 00 No 1mg trazodone 100 mg tablet 0 07-10 00:00: 00 No 2mg venlafaxine ER 150 mg capsule,ext ended release 24 hr 2020-0 07-10 00:00: 00 No 1mg venlafaxine ER 75 mg capsule,ext ended release 24 hr 2020-0 07-10 00:00: 00 No 1mg Seroquel 100 mg tablet 0 07-10 00:00: 00 No 1mg trazodone 100 mg tablet 0 07-10 00:00: 00 No 2mg venlafaxine ER 150 mg capsule,ext ended release 24 hr 2020-0 07-10 00:00: 00 No 1mg venlafaxine ER 75 mg capsule,ext ended release 24 hr 2020-0 07-10 00:00: 00 No 1mg Seroquel 100 mg tablet 0 07-10 00:00: 00 Yes 1mg Oleg Lemon trazodone 100 mg tablet 0 07-10 00:00: 00 Yes 2mg Oleg Lemon venlafaxine ER 150 mg capsule,ext ended release 24 hr 2020-0 07-10 00:00: 00 Yes 1mg Oleg Lemon venlafaxine ER 75 mg capsule,ext ended release 24 hr 0 07-10 00:00: 00 Yes 1mg Oleg Lemon Seroquel 100 mg tablet 2020-0 06-12 00:00: 00 No 1mg trazodone 100 mg tablet 2020-0 06-12 00:00: 00 No 2mg venlafaxine ER 150 mg capsule,ext ended release 24 hr 2020-0 06-12 00:00: 00 No 1mg venlafaxine ER 75 mg capsule,ext ended release 24 hr 2020-0 06-12 00:00: 00 No 1mg Seroquel 100 mg tablet 2020-0 06-12 00:00: 00 No 1mg trazodone 100 mg tablet 2020-0 06-12 00:00: 00 No 2mg venlafaxine ER 150 mg capsule,ext ended release 24 hr 2020-0 06-12 00:00: 00 No 1mg venlafaxine ER 75 mg capsule,ext ended release 24 hr 2020-0 06-12 00:00: 00 No 1mg Seroquel 100 mg tablet 0 06-12 00:00: 00 No 1mg trazodone 100 mg tablet 06-12 00:00: 00 No 2mg venlafaxine ER 150 mg capsule,ext ended release 24 hr 0 06-12 00:00: 00 No 1mg venlafaxine ER 75 mg capsule,ext ended release 24 hr 0 06-12 00:00: 00 No 1mg Seroquel 100 mg tablet 06-12 00:00: 00 Yes 1mg Oleg Lemon trazodone 100 mg tablet 06-12 00:00: 00 Yes 2mg Oleg Lemon venlafaxine ER 150 mg capsule,ext ended release 24 hr 06-12 00:00: 00 Yes 1mg Oleg Lemon venlafaxine ER 75 mg capsule,ext ended release 24 hr 06-12 00:00: 00 Yes 1mg Oleg Lemon Symbicort 160 mcg-4.5 mcg/actuati on HFA aerosol inhaler 06-07 00:00: 00 No 1mcg/ac tuation ProAir HFA 90 mcg/actuati on aerosol inhaler 06-07 00:00: 00 No 12mcg/a ctuatio n Dose Unknown 06-07 00:00: 00 No Symbicort 160 mcg-4.5 mcg/actuati on HFA aerosol inhaler 06-07 00:00: 00 No 1mcg/ac tuation ProAir HFA 90 mcg/actuati on aerosol inhaler 0 06-07 00:00: 00 No 12mcg/a ctuatio n Dose Unknown 06-07 00:00: 00 No Symbicort 160 mcg-4.5 mcg/actuati on HFA aerosol inhaler 06-07 00:00: 00 No 1mcg/ac tuation ProAir HFA 90 mcg/actuati on aerosol inhaler 06-07 00:00: 00 No 12mcg/a ctuatio n Dose Unknown 06-07 00:00: 00 No Symbicort 160 mcg-4.5 mcg/actuati on HFA aerosol inhaler 06-07 00:00: 00 Yes 1mcg/ac tuation Oleg Lemon ProAir HFA 90 mcg/actuati on aerosol inhaler 06-07 00:00: 00 Yes 12mcg/a ctuatio n Oleg Lemon Dose Unknown 06-07 00:00: 00 Yes Oleg Lemon trazodone 100 mg tablet 4- 00:00: 00 No 2mg Seroquel 100 mg tablet 4- 00:00: 00 No 1mg venlafaxine ER 75 mg capsule,ext ended release 24 hr 05-15 00:00: 00 No 1mg venlafaxine ER 150 mg capsule,ext ended release 24 hr 05-15 00:00: 00 No 1mg trazodone 100 mg tablet 4 00:00: 00 No 2mg Seroquel 100 mg tablet 4- 00:00: 00 No 1mg venlafaxine ER 75 mg capsule,ext ended release 24 hr - 00:00: 00 No 1mg venlafaxine ER 150 mg capsule,ext ended release 24 hr 05-15 00:00: 00 No 1mg trazodone 100 mg tablet 4 00:00: 00 No 2mg Seroquel 100 mg tablet 4- 00:00: 00 No 1mg venlafaxine ER 75 mg capsule,ext ended release 24 hr 0 - 00:00: 00 No 1mg venlafaxine ER 150 mg capsule,ext ended release 24 hr 0 4- 00:00: 00 No 1mg trazodone 100 mg tablet 4- 00:00: 00 Yes 2mg Oleg Lemon Seroquel 100 mg tablet 4- 00:00: 00 Yes 1mg Oleg Lemon venlafaxine ER 75 mg capsule,ext ended release 24 hr 0 4- 00:00: 00 Yes 1mg Oleg Lemon venlafaxine ER 150 mg capsule,ext ended release 24 hr 0 4- 00:00: 00 Yes 1mg Oleg Lemon trazodone 100 mg tablet 2020-0 2-23 00:00: 00 No 2mg Seroquel 100 mg tablet 2020-0 2-23 00:00: 00 No 1mg venlafaxine ER 150 mg capsule,ext ended release 24 hr 2020-0 2-23 00:00: 00 No 1mg venlafaxine ER 75 mg capsule,ext ended release 24 hr 2020-0 2-23 00:00: 00 No 1mg trazodone 100 mg tablet 2020-0 2-23 00:00: 00 No 2mg Seroquel 100 mg tablet 2020-0 2-23 00:00: 00 No 1mg venlafaxine ER 150 mg capsule,ext ended release 24 hr 2020-0 2-23 00:00: 00 No 1mg venlafaxine ER 75 mg capsule,ext ended release 24 hr 2020-0 2-23 00:00: 00 No 1mg trazodone 100 mg tablet 2020-0 2-23 00:00: 00 No 2mg Seroquel 100 mg tablet 2020-0 2-23 00:00: 00 No 1mg venlafaxine ER 150 mg capsule,ext ended release 24 hr 2020-0 2-23 00:00: 00 No 1mg venlafaxine ER 75 mg capsule,ext ended release 24 hr 2020-0 2-23 00:00: 00 No 1mg trazodone 100 mg tablet 2020-0 2-23 00:00: 00 Yes 2mg Oleg Lemon Seroquel 100 mg tablet 2020-0 2-23 00:00: 00 Yes 1mg Oleg Lemon venlafaxine ER 150 mg capsule,ext ended release 24 hr 2020-0 2-23 00:00: 00 Yes 1mg Oleg Lemon venlafaxine ER 75 mg capsule,ext ended release 24 hr 2020-0 2-23 00:00: 00 Yes 1mg Oleg Lemon Seroquel 100 mg tablet 2020-0 1-28 00:00: 00 No 1mg trazodone 100 mg tablet 2020-0 1-28 00:00: 00 No 2mg venlafaxine ER 75 mg capsule,ext ended release 24 hr 0 03-13 00:00: 00 No 1mg venlafaxine ER 150 mg capsule,ext ended release 24 hr 0 03-13 00:00: 00 No 1mg Seroquel 100 mg tablet 0 03-13 00:00: 00 No 1mg trazodone 100 mg tablet 0 03-13 00:00: 00 No 2mg venlafaxine ER 75 mg capsule,ext ended release 24 hr 0 03-13 00:00: 00 No 1mg venlafaxine ER 150 mg capsule,ext ended release 24 hr 0 03-13 00:00: 00 No 1mg Seroquel 100 mg tablet 03-13 00:00: 00 No 1mg trazodone 100 mg tablet 03-13 00:00: 00 No 2mg venlafaxine ER 75 mg capsule,ext ended release 24 hr 03-13 00:00: 00 No 1mg venlafaxine ER 150 mg capsule,ext ended release 24 hr 03-13 00:00: 00 No 1mg Seroquel 100 mg tablet 03-13 00:00: 00 Yes 1mg Oleg Lemon trazodone 100 mg tablet 03-13 00:00: 00 Yes 2mg Oleg Lemon venlafaxine ER 75 mg capsule,ext ended release 24 hr 03-13 00:00: 00 Yes 1mg Oleg Lemon venlafaxine ER 150 mg capsule,ext ended release 24 hr 03-13 00:00: 00 Yes 1mg Oleg Lemon trazodone 100 mg tablet 2019-02 00:00: 00 No 2mg Seroquel 100 mg tablet 2019-02 00:00: 00 No 1mg venlafaxine ER 150 mg capsule,ext ended release 24 hr 2019-02 00:00: 00 No 1mg venlafaxine ER 75 mg capsule,ext ended release 24 hr 2019-02 00:00: 00 No 1mg trazodone 100 mg tablet 2019-02 00:00: 00 No 2mg Seroquel 100 mg tablet 2019-02 00:00: 00 No 1mg venlafaxine ER 150 mg capsule,ext ended release 24 hr 2019-02 00:00: 00 No 1mg venlafaxine ER 75 mg capsule,ext ended release 24 hr 2019-02 00:00: 00 No 1mg trazodone 100 mg tablet 2019-02 00:00: 00 No 2mg Seroquel 100 mg tablet 2019-02 00:00: 00 No 1mg venlafaxine ER 150 mg capsule,ext ended release 24 hr 2019-02 00:00: 00 No 1mg venlafaxine ER 75 mg capsule,ext ended release 24 hr 2019-02 00:00: 00 No 1mg trazodone 100 mg tablet 2019-02 00:00: 00 Yes 2mg Oleg Lemon Seroquel 100 mg tablet 2019-02 00:00: 00 Yes 1mg Oleg Lemon venlafaxine ER 150 mg capsule,ext ended release 24 hr 2019-02 00:00: 00 Yes 1mg Oleg Lemon venlafaxine ER 75 mg capsule,ext ended release 24 hr 2019-02 00:00: 00 Yes 1mg Oleg Lemno trazodone 100 mg tablet 2019-02 00:00: 00 No 2mg Seroquel 100 mg tablet 2019-02 00:00: 00 No 1mg venlafaxine ER 75 mg capsule,ext ended release 24 hr 2019-02 00:00: 00 No 1mg venlafaxine ER 150 mg capsule,ext ended release 24 hr 2019-02 00:00: 00 No 1mg trazodone 100 mg tablet 2019-02 00:00: 00 No 2mg Seroquel 100 mg tablet 2019-02 00:00: 00 No 1mg venlafaxine ER 75 mg capsule,ext ended release 24 hr 2019-02 00:00: 00 No 1mg venlafaxine ER 150 mg capsule,ext ended release 24 hr 2019-02 00:00: 00 No 1mg trazodone 100 mg tablet 2019-02 2 00:00: 00 No 2mg Seroquel 100 mg tablet 2019-02 00:00: 00 No 1mg venlafaxine ER 75 mg capsule,ext ended release 24 hr 2019-02 00:00: 00 No 1mg venlafaxine ER 150 mg capsule,ext ended release 24 hr 2019-02 00:00: 00 No 1mg trazodone 100 mg tablet 2019-02 00:00: 00 Yes 2mg Oleg Lemon Seroquel 100 mg tablet 2019-02 00:00: 00 Yes 1mg Oleg Lemon venlafaxine ER 75 mg capsule,ext ended release 24 hr 2019-02 00:00: 00 Yes 1mg Oleg Lemon venlafaxine ER 150 mg capsule,ext ended release 24 hr 2019-02 00:00: 00 Yes 1mg Oleg Lemon trazodone 100 mg tablet 2019-02 00:00: 00 No 2mg Seroquel 100 mg tablet 2019-02 00:00: 00 No 1mg venlafaxine ER 150 mg capsule,ext ended release 24 hr 2019-02 00:00: 00 No 1mg venlafaxine ER 75 mg capsule,ext ended release 24 hr 2019-02 00:00: 00 No 1mg trazodone 100 mg tablet 2019-02 00:00: 00 No 2mg Seroquel 100 mg tablet 2019-02 00:00: 00 No 1mg venlafaxine ER 150 mg capsule,ext ended release 24 hr 2019-02 00:00: 00 No 1mg venlafaxine ER 75 mg capsule,ext ended release 24 hr 2019-02 00:00: 00 No 1mg trazodone 100 mg tablet 2019-02 00:00: 00 No 2mg Seroquel 100 mg tablet 2019-02 00:00: 00 No 1mg venlafaxine ER 150 mg capsule,ext ended release 24 hr 2019-02 00:00: 00 No 1mg venlafaxine ER 75 mg capsule,ext ended release 24 hr 2019-02 00:00: 00 No 1mg trazodone 100 mg tablet 2019-02 00:00: 00 Yes 2mg Oleg Lemon Seroquel 100 mg tablet 2019-02 00:00: 00 Yes 1mg Oleg Lemon venlafaxine ER 150 mg capsule,ext ended release 24 hr 2019-02 00:00: 00 Yes 1mg Oleg Lemon venlafaxine ER 75 mg capsule,ext ended release 24 hr 2019-02 00:00: 00 Yes 1mg Oleg Lemon cholecalcif shubham (vitamin D3) 1,250 mcg (50,000 unit) tablet 2019-02 0 00:00: 00 No 1(50,00 0 unit) cholecalcif shubham (vitamin D3) 1,250 mcg (50,000 unit) tablet 2019-02 0 00:00: 00 No 1(50,00 0 unit) Dose Unknown 2019-02 0 00:00: 00 No 4 cholecalcif shubham (vitamin D3) 1,250 mcg (50,000 unit) tablet 2019-02 0 00:00: 00 No 1(50,00 0 unit) cholecalcif shubham (vitamin D3) 1,250 mcg (50,000 unit) tablet 2019-02 030 00:00: 00 Yes 1(50,00 0 unit) Oleg Lemon Mavyret 100 mg-40 mg tablet 2019-02 0- 00:00: 00 No 3mg Mavyret 100 mg-40 mg tablet 2019-02 0 00:00: 00 No 3mg Mavyret 100 mg-40 mg tablet 2019-02 0 00:00: 00 No 3mg Mavyret 100 mg-40 mg tablet 2019-02 0 00:00: 00 Yes 3mg Oleg Lemon Seroquel 100 mg tablet 2019-02 0- 00:00: 00 No 1mg trazodone 100 mg tablet 2019-02 0-06 00:00: 00 No 2mg venlafaxine ER 75 mg capsule,ext ended release 24 hr 2019-02 0- 00:00: 00 No 1mg venlafaxine ER 150 mg capsule,ext ended release 24 hr 2019-02 0- 00:00: 00 No 1mg Seroquel 100 mg tablet 2019-02 0- 00:00: 00 No 1mg trazodone 100 mg tablet 2019-02 0-06 00:00: 00 No 2mg venlafaxine ER 75 mg capsule,ext ended release 24 hr 2019-02 0-06 00:00: 00 No 1mg venlafaxine ER 150 mg capsule,ext ended release 24 hr 2019-02 0- 00:00: 00 No 1mg Seroquel 100 mg tablet 2019-02 0- 00:00: 00 No 1mg trazodone 100 mg tablet 2019-02 0- 00:00: 00 No 2mg venlafaxine ER 75 mg capsule,ext ended release 24 hr 2019-02 0 00:00: 00 No 1mg venlafaxine ER 150 mg capsule,ext ended release 24 hr 2019-02 0- 00:00: 00 No 1mg Seroquel 100 mg tablet 2019-02 0- 00:00: 00 Yes 1mg Oleg Lemon trazodone 100 mg tablet 2019-02 0- 00:00: 00 Yes 2mg Oleg Lemon venlafaxine ER 75 mg capsule,ext ended release 24 hr 2019-02 0 00:00: 00 Yes 1mg Oleg Lemon venlafaxine ER 150 mg capsule,ext ended release 24 hr 2019-02 0 00:00: 00 Yes 1mg Oleg Lemon trazodone 100 mg tablet - 00:00: 00 No 2mg Seroquel 100 mg tablet 10-17 00:00: 00 No 1mg venlafaxine ER 150 mg capsule,ext ended release 24 hr - 00:00: 00 No 1mg venlafaxine ER 75 mg capsule,ext ended release 24 hr - 00:00: 00 No 1mg trazodone 100 mg tablet - 00:00: 00 No 2mg Seroquel 100 mg tablet - 00:00: 00 No 1mg venlafaxine ER 150 mg capsule,ext ended release 24 hr - 00:00: 00 No 1mg venlafaxine ER 75 mg capsule,ext ended release 24 hr - 00:00: 00 No 1mg trazodone 100 mg tablet - 00:00: 00 No 2mg Seroquel 100 mg tablet 0 9- 00:00: 00 No 1mg venlafaxine ER 150 mg capsule,ext ended release 24 hr 0 9- 00:00: 00 No 1mg venlafaxine ER 75 mg capsule,ext ended release 24 hr 0 - 00:00: 00 No 1mg trazodone 100 mg tablet 0 9- 00:00: 00 Yes 2mg Oleg Lemon Seroquel 100 mg tablet 0 9- 00:00: 00 Yes 1mg Oleg Lemon venlafaxine ER 150 mg capsule,ext ended release 24 hr 0 9- 00:00: 00 Yes 1mg Oleg Lemon venlafaxine ER 75 mg capsule,ext ended release 24 hr 0 10-17 00:00: 00 Yes 1mg Oleg Lemon Symbicort 160 mcg-4.5 mcg/actuati on HFA aerosol inhaler 0 8-11 00:00: 00 No 1mcg/ac tuation Symbicort 160 mcg-4.5 mcg/actuati on HFA aerosol inhaler 0 8-11 00:00: 00 No 1mcg/ac tuation Symbicort 160 mcg-4.5 mcg/actuati on HFA aerosol inhaler 0 8-11 00:00: 00 No 1mcg/ac tuation Symbicort 160 mcg-4.5 mcg/actuati on HFA aerosol inhaler 0 8-11 00:00: 00 Yes 1mcg/ac tuation Oleg Lemon trazodone 100 mg tablet 0 8-04 00:00: 00 No 2mg Seroquel 100 mg tablet 0 8-04 00:00: 00 No 1mg venlafaxine ER 150 mg capsule,ext ended release 24 hr 0 8-04 00:00: 00 No 1mg venlafaxine ER 75 mg capsule,ext ended release 24 hr 0 8-04 00:00: 00 No 1mg trazodone 100 mg tablet 0 8-04 00:00: 00 No 2mg Seroquel 100 mg tablet 0 8-04 00:00: 00 No 1mg venlafaxine ER 150 mg capsule,ext ended release 24 hr 0 8-04 00:00: 00 No 1mg venlafaxine ER 75 mg capsule,ext ended release 24 hr 0 8-04 00:00: 00 No 1mg trazodone 100 mg tablet 0 8-04 00:00: 00 No 2mg Seroquel 100 mg tablet 0 8-04 00:00: 00 No 1mg venlafaxine ER 150 mg capsule,ext ended release 24 hr 0 8- 00:00: 00 No 1mg venlafaxine ER 75 mg capsule,ext ended release 24 hr 0 8- 00:00: 00 No 1mg trazodone 100 mg tablet 0 8- 00:00: 00 Yes 2mg Oleg Lemon Seroquel 100 mg tablet 0 8- 00:00: 00 Yes 1mg Oleg Lemon venlafaxine ER 150 mg capsule,ext ended release 24 hr 0 8- 00:00: 00 Yes 1mg Oleg Lemon venlafaxine ER 75 mg capsule,ext ended release 24 hr 0 8 00:00: 00 Yes 1mg Oleg Lemon Seroquel 100 mg tablet 0 08-22 00:00: 00 No 1mg trazodone 100 mg tablet 0 08-22 00:00: 00 No 2mg venlafaxine ER 75 mg capsule,ext ended release 24 hr 0 08-22 00:00: 00 No 1mg venlafaxine ER 150 mg capsule,ext ended release 24 hr 0 08-22 00:00: 00 No 1mg Seroquel 100 mg tablet 0 08-22 00:00: 00 No 1mg trazodone 100 mg tablet 0 08-22 00:00: 00 No 2mg venlafaxine ER 75 mg capsule,ext ended release 24 hr 0 08-22 00:00: 00 No 1mg venlafaxine ER 150 mg capsule,ext ended release 24 hr 0 08-22 00:00: 00 No 1mg Seroquel 100 mg tablet 0 08-22 00:00: 00 No 1mg trazodone 100 mg tablet 0 7 00:00: 00 No 2mg venlafaxine ER 75 mg capsule,ext ended release 24 hr 2020-0 7-09 00:00: 00 No 1mg venlafaxine ER 150 mg capsule,ext ended release 24 hr 2020-0 7- 00:00: 00 No 1mg Seroquel 100 mg tablet 2019-0 7-09 00:00: 00 Yes 1mg Oleg Lemon trazodone 100 mg tablet 2019-0 7- 00:00: 00 Yes 2mg Oleg Lemon venlafaxine ER 75 mg capsule,ext ended release 24 hr 2019-0 7- 00:00: 00 Yes 1mg Oleg Lemon venlafaxine ER 150 mg capsule,ext ended release 24 hr 2019-0 7- 00:00: 00 Yes 1mg Oleg Lemon ProAir HFA 90 mcg/actuati on aerosol inhaler 2019-0 6-18 00:00: 00 No 12mcg/a ctuatio n ProAir HFA 90 mcg/actuati on aerosol inhaler 2020-0 6-18 00:00: 00 No 12mcg/a ctuatio n ProAir HFA 90 mcg/actuati on aerosol inhaler 2019-0 6-18 00:00: 00 No 12mcg/a ctuatio n ProAir HFA 90 mcg/actuati on aerosol inhaler 2020-0 6-18 00:00: 00 Yes 12mcg/a ctuatira Lemon Seroquel 100 mg tablet 2019-0 6-11 00:00: 00 No 1mg trazodone 100 mg tablet 2019-0 6-11 00:00: 00 No 2mg venlafaxine ER 75 mg capsule,ext ended release 24 hr 2019-0 6-11 00:00: 00 No 1mg venlafaxine ER 150 mg capsule,ext ended release 24 hr 2019-0 6-11 00:00: 00 No 1mg Seroquel 100 mg tablet 2019-0 6-11 00:00: 00 No 1mg trazodone 100 mg tablet 2019-0 6-11 00:00: 00 No 2mg venlafaxine ER 75 mg capsule,ext ended release 24 hr 2019-0 6-11 00:00: 00 No 1mg venlafaxine ER 150 mg capsule,ext ended release 24 hr 2019-0 6-11 00:00: 00 No 1mg Seroquel 100 mg tablet 2019-0 6- 00:00: 00 No 1mg trazodone 100 mg tablet 2019-0 6- 00:00: 00 No 2mg venlafaxine ER 75 mg capsule,ext ended release 24 hr 2019-0 6- 00:00: 00 No 1mg venlafaxine ER 150 mg capsule,ext ended release 24 hr 2019-0 6- 00:00: 00 No 1mg Seroquel 100 mg tablet 2019-0 6- 00:00: 00 Yes 1mg Oleg Lemon trazodone 100 mg tablet 2019-0 6- 00:00: 00 Yes 2mg Oleg Lemon venlafaxine ER 75 mg capsule,ext ended release 24 hr 2019-0 - 00:00: 00 Yes 1mg Oleg Lemon venlafaxine ER 150 mg capsule,ext ended release 24 hr 2019-0 6- 00:00: 00 Yes 1mg Oleg Lemon trazodone 100 mg tablet 2019-0 -18 00:00: 00 No 2mg Seroquel 100 mg tablet 2019-0 5-18 00:00: 00 No 1mg venlafaxine ER 75 mg capsule,ext ended release 24 hr 2019-0 5-18 00:00: 00 No 1mg venlafaxine ER 150 mg capsule,ext ended release 24 hr 2019-0 5-18 00:00: 00 No 1mg trazodone 100 mg tablet 2019-0 5-18 00:00: 00 No 2mg Seroquel 100 mg tablet 2019-0 5-18 00:00: 00 No 1mg venlafaxine ER 75 mg capsule,ext ended release 24 hr 2019-0 5-18 00:00: 00 No 1mg venlafaxine ER 150 mg capsule,ext ended release 24 hr 2019-0 5-18 00:00: 00 No 1mg trazodone 100 mg tablet 2019-0 5-18 00:00: 00 No 2mg Seroquel 100 mg tablet 2019-0 5-18 00:00: 00 No 1mg venlafaxine ER 75 mg capsule,ext ended release 24 hr 2020-0 5-18 00:00: 00 No 1mg venlafaxine ER 150 mg capsule,ext ended release 24 hr 2019-0 5-18 00:00: 00 No 1mg trazodone 100 mg tablet 2019-0 5-18 00:00: 00 Yes 2mg Oleg Lemon Seroquel 100 mg tablet 2019-0 5-18 00:00: 00 Yes 1mg Oleg Lemon venlafaxine ER 75 mg capsule,ext ended release 24 hr 2020-0 5-18 00:00: 00 Yes 1mg Oleg Lemon venlafaxine ER 150 mg capsule,ext ended release 24 hr 2020-0 5-18 00:00: 00 Yes 1mg Oleg Lemon Seroquel 100 mg tablet 2019-0 4-16 00:00: 00 No 1mg trazodone 100 mg tablet 2019-0 4-16 00:00: 00 No 2mg venlafaxine ER 150 mg capsule,ext ended release 24 hr 2020-0 4-16 00:00: 00 No 1mg Seroquel 100 mg tablet 2019-0 4-16 00:00: 00 No 1mg trazodone 100 mg tablet 2019-0 4-16 00:00: 00 No 2mg venlafaxine ER 150 mg capsule,ext ended release 24 hr 2019-0 4-16 00:00: 00 No 1mg venlafaxine ER 75 mg capsule,ext ended release 24 hr 2020-0 4-16 00:00: 00 No 1mg venlafaxine ER 75 mg capsule,ext ended release 24 hr 2020-0 4-16 00:00: 00 No 1mg Seroquel 100 mg tablet 2019-0 4-16 00:00: 00 No 1mg trazodone 100 mg tablet 2019-0 4-16 00:00: 00 No 2mg venlafaxine ER 150 mg capsule,ext ended release 24 hr 2020-0 4-16 00:00: 00 No 1mg venlafaxine ER 75 mg capsule,ext ended release 24 hr 2020-0 4-16 00:00: 00 No 1mg Seroquel 100 mg tablet 2019-0 4-16 00:00: 00 Yes 1mg Oleg Lemon trazodone 100 mg tablet 2019-0 4-16 00:00: 00 Yes 2mg Oleg Lemon venlafaxine ER 150 mg capsule,ext ended release 24 hr 2020-0 4-16 00:00: 00 Yes 1mg Oleg Lemon venlafaxine ER 75 mg capsule,ext ended release 24 hr 2020-0 4-16 00:00: 00 Yes 1mg Oleg Lemon Seroquel 100 mg tablet 2019-0 3-19 00:00: 00 No 1mg trazodone 100 mg tablet 2019-0 3-19 00:00: 00 No 2mg venlafaxine ER 150 mg capsule,ext ended release 24 hr 2020-0 3-19 00:00: 00 No 1mg venlafaxine ER 75 mg capsule,ext ended release 24 hr 2020-0 3-19 00:00: 00 No 1mg Seroquel 100 mg tablet 2019-0 3-19 00:00: 00 No 1mg trazodone 100 mg tablet 2019-0 3-19 00:00: 00 No 2mg venlafaxine ER 150 mg capsule,ext ended release 24 hr 2019-0 3-19 00:00: 00 No 1mg venlafaxine ER 75 mg capsule,ext ended release 24 hr 2020-0 3-19 00:00: 00 No 1mg Seroquel 100 mg tablet 2019-0 3-19 00:00: 00 No 1mg trazodone 100 mg tablet 2019-0 3-19 00:00: 00 No 2mg venlafaxine ER 150 mg capsule,ext ended release 24 hr 2019-0 3-19 00:00: 00 No 1mg venlafaxine ER 75 mg capsule,ext ended release 24 hr 2019-0 3-19 00:00: 00 No 1mg Seroquel 100 mg tablet 2019-0 3-19 00:00: 00 Yes 1mg Oleg Lemon trazodone 100 mg tablet 2019-0 3-19 00:00: 00 Yes 2mg Oleg Lemon venlafaxine ER 150 mg capsule,ext ended release 24 hr 2020-0 3-19 00:00: 00 Yes 1mg Oleg Lemon venlafaxine ER 75 mg capsule,ext ended release 24 hr 2020-0 3-19 00:00: 00 Yes 1mg Oleg Lemon venlafaxine ER 150 mg capsule,ext ended release 24 hr 2020-0 2-06 00:00: 00 No 1mg venlafaxine ER 75 mg capsule,ext ended release 24 hr 2020-0 2-06 00:00: 00 No 1mg Seroquel 100 mg tablet 2019-0 2-06 00:00: 00 No 1mg trazodone 100 mg tablet 2019-0 2-06 00:00: 00 No 2mg venlafaxine ER 150 mg capsule,ext ended release 24 hr 2019-0 2-06 00:00: 00 No 1mg venlafaxine ER 75 mg capsule,ext ended release 24 hr 2019-0 2-06 00:00: 00 No 1mg Seroquel 100 mg tablet 2019-0 2-06 00:00: 00 No 1mg trazodone 100 mg tablet 2019-0 2-06 00:00: 00 No 2mg venlafaxine ER 150 mg capsule,ext ended release 24 hr 0 2-06 00:00: 00 No 1mg venlafaxine ER 75 mg capsule,ext ended release 24 hr 0 2-06 00:00: 00 No 1mg Seroquel 100 mg tablet 2019-0 2-06 00:00: 00 No 1mg trazodone 100 mg tablet 2019-0 2-06 00:00: 00 No 2mg Seroquel 100 mg tablet 0 2-06 00:00: 00 Yes 1mg Oleg Lemon trazodone 100 mg tablet 2019-0 2-06 00:00: 00 Yes 2mg Oleg Lemon venlafaxine ER 150 mg capsule,ext ended release 24 hr 2019-0 2-06 00:00: 00 Yes 1mg Oleg Lemon venlafaxine ER 75 mg capsule,ext ended release 24 hr 2019-0 2-06 00:00: 00 Yes 1mg Oleg Lemon Seroquel 100 mg tablet 2019-0 1-02 00:00: 00 No 1mg trazodone 100 mg tablet 0 1-02 00:00: 00 No 2mg venlafaxine ER 75 mg capsule,ext ended release 24 hr 2019-0 1-02 00:00: 00 No 1mg venlafaxine ER 150 mg capsule,ext ended release 24 hr 2019-0 1-02 00:00: 00 No 1mg Seroquel 100 mg tablet 2019-0 1-02 00:00: 00 No 1mg trazodone 100 mg tablet 2019-0 1-02 00:00: 00 No 2mg venlafaxine ER 75 mg capsule,ext ended release 24 hr 02-15 00:00: 00 No 1mg venlafaxine ER 150 mg capsule,ext ended release 24 hr 02-15 00:00: 00 No 1mg Seroquel 100 mg tablet 02-15 00:00: 00 No 1mg trazodone 100 mg tablet 02-15 00:00: 00 No 2mg venlafaxine ER 75 mg capsule,ext ended release 24 hr 02-15 00:00: 00 No 1mg venlafaxine ER 150 mg capsule,ext ended release 24 hr 02-15 00:00: 00 No 1mg Seroquel 100 mg tablet 02-15 00:00: 00 Yes 1mg Oleg Lemon trazodone 100 mg tablet 02-15 00:00: 00 Yes 2mg Oleg Lemon venlafaxine ER 75 mg capsule,ext ended release 24 hr 02-15 00:00: 00 Yes 1mg Oleg Lemon venlafaxine ER 150 mg capsule,ext ended release 24 hr 02-15 00:00: 00 Yes 1mg Oleg Lemon Seroquel 100 mg tablet 2018-02 00:00: 00 No 1mg trazodone 100 mg tablet 2018-02 00:00: 00 No 2mg Seroquel 100 mg tablet 2018-02 00:00: 00 No 1mg trazodone 100 mg tablet 2018-02 00:00: 00 No 2mg Seroquel 100 mg tablet 2018-02 00:00: 00 No 1mg trazodone 100 mg tablet 2018-02 00:00: 00 No 2mg Seroquel 100 mg tablet 2018-02 00:00: 00 Yes 1mg Oleg Lemon trazodone 100 mg tablet 2018-02 00:00: 00 Yes 2mg Oleg Lemon trazodone 100 mg tablet 2018-02 00:00: 00 No 2mg Seroquel 100 mg tablet 2018-02 00:00: 00 No 1mg trazodone 100 mg tablet 2018-02 00:00: 00 No 2mg Seroquel 100 mg tablet 2018-02 00:00: 00 No 1mg trazodone 100 mg tablet 2018-02 00:00: 00 No 2mg Seroquel 100 mg tablet 2018-02 00:00: 00 No 1mg trazodone 100 mg tablet 2018-02 00:00: 00 Yes 2mg Oleg Lemon Seroquel 100 mg tablet 2018-02 00:00: 00 Yes 1mg Oleg Lmeon Seroquel 100 mg tablet 2018-02 00:00: 00 No 1mg trazodone 100 mg tablet 2018-02 00:00: 00 No 2mg Seroquel 100 mg tablet 2018-02 00:00: 00 No 1mg trazodone 100 mg tablet 2018-02 00:00: 00 No 2mg Seroquel 100 mg tablet 2018-02 00:00: 00 No 1mg trazodone 100 mg tablet 2018-02 00:00: 00 No 2mg Seroquel 100 mg tablet 2018-02 00:00: 00 Yes 1mg Oleg Lemon trazodone 100 mg tablet 2018-02 00:00: 00 Yes 2mg Oleg Lemon trazodone 100 mg tablet 2018-02 00:00: 00 No 2mg Seroquel 100 mg tablet 2018-02 00:00: 00 No 1mg trazodone 100 mg tablet 2018-02 00:00: 00 No 2mg Seroquel 100 mg tablet 2018-02 00:00: 00 No 1mg trazodone 100 mg tablet 2018-02 00:00: 00 No 2mg Seroquel 100 mg tablet 2018-02 00:00: 00 No 1mg trazodone 100 mg tablet 2018-02 00:00: 00 Yes 2mg Oleg Lemon Seroquel 100 mg tablet 2018-02 00:00: 00 Yes 1mg Oleg Lemon trazodone 100 mg tablet 10-12 00:00: 00 No 2mg Seroquel 100 mg tablet 10-12 00:00: 00 No 1mg trazodone 100 mg tablet 10-12 00:00: 00 No 2mg Seroquel 100 mg tablet 10-12 00:00: 00 No 1mg trazodone 100 mg tablet 10-12 00:00: 00 No 2mg Seroquel 100 mg tablet 10-12 00:00: 00 No 1mg trazodone 100 mg tablet 10-12 00:00: 00 Yes 2mg Oleg Lemon Seroquel 100 mg tablet 10-12 00:00: 00 Yes 1mg Oleg Lemon ProAir HFA 90 mcg/actuati on aerosol inhaler 06-23 00:00: 00 No 12mcg/a ctuatio n amoxicillin 875 mg-potassiu m clavulanate 125 mg tablet 06-23 00:00: 00 No 1mg ProAir HFA 90 mcg/actuati on aerosol inhaler 06-23 00:00: 00 No 12mcg/a ctuatio n amoxicillin 875 mg-potassiu m clavulanate 125 mg tablet 06-23 00:00: 00 No 1mg ProAir HFA 90 mcg/actuati on aerosol inhaler 06-23 00:00: 00 No 12mcg/a ctuatio n amoxicillin 875 mg-potassiu m clavulanate 125 mg tablet 06-23 00:00: 00 No 1mg ProAir HFA 90 mcg/actuati on aerosol inhaler 06-23 00:00: 00 Yes 12mcg/a ctuatio jelani Lemon amoxicillin 875 mg-potassiu m clavulanate 125 mg tablet 06-23 00:00: 00 Yes 1mg Oleg Lemon trazodone 100 mg tablet 06-22 00:00: 00 No 2mg Seroquel 100 mg tablet 06-22 00:00: 00 No 1mg trazodone 100 mg tablet 06-22 00:00: 00 No 2mg Seroquel 100 mg tablet 06-22 00:00: 00 No 1mg trazodone 100 mg tablet 06-22 00:00: 00 No 2mg Seroquel 100 mg tablet 06-22 00:00: 00 No 1mg trazodone 100 mg tablet 06-22 00:00: 00 Yes 2mg Oleg Lemon Seroquel 100 mg tablet 06-22 00:00: 00 Yes 1mg Oleg Lemon trazodone 100 mg tablet 05-11 00:00: 00 No 2mg Seroquel 100 mg tablet 05-11 00:00: 00 No 1mg trazodone 100 mg tablet 05-11 00:00: 00 No 2mg Seroquel 100 mg tablet 05-11 00:00: 00 No 1mg trazodone 100 mg tablet 05-11 00:00: 00 No 2mg Seroquel 100 mg tablet 05-11 00:00: 00 No 1mg trazodone 100 mg tablet 05-11 00:00: 00 Yes 2mg Oleg Lemon Seroquel 100 mg tablet 05-11 00:00: 00 Yes 1mg Oleg Lemon trazodone 100 mg tablet 04-07 00:00: 00 No 2mg trazodone 100 mg tablet 04-07 00:00: 00 No 2mg trazodone 100 mg tablet 04-07 00:00: 00 No 2mg trazodone 100 mg tablet 04-07 00:00: 00 Yes 2mg Oleg Lemon Seroquel 100 mg tablet 04-06 00:00: 00 No 1mg Seroquel 100 mg tablet 04-06 00:00: 00 No 1mg Seroquel 100 mg tablet 04-06 00:00: 00 No 1mg Seroquel 100 mg tablet 04-06 00:00: 00 Yes 1mg Oleg Lemon Symbicort 160 mcg-4.5 mcg/actuati on HFA aerosol inhaler 03-02 00:00: 00 No 1mcg/ac tuation trazodone 100 mg tablet 03-02 00:00: 00 No 2mg Seroquel 100 mg tablet 03-02 00:00: 00 No 1mg Symbicort 160 mcg-4.5 mcg/actuati on HFA aerosol inhaler 03-02 00:00: 00 No 1mcg/ac tuation trazodone 100 mg tablet 03-02 00:00: 00 No 2mg Seroquel 100 mg tablet 03-02 00:00: 00 No 1mg Symbicort 160 mcg-4.5 mcg/actuati on HFA aerosol inhaler 03-02 00:00: 00 No 1mcg/ac tuation trazodone 100 mg tablet 03-02 00:00: 00 No 2mg Seroquel 100 mg tablet 03-02 00:00: 00 No 1mg Symbicort 160 mcg-4.5 mcg/actuati on HFA aerosol inhaler 03-02 00:00: 00 Yes 1mcg/ac tuation Oleg Sandra Lemon trazodone 100 mg tablet 03-02 00:00: 00 Yes 2mg Oleg Lemon Seroquel 100 mg tablet 03-02 00:00: 00 Yes 1mg Oleg Lemon Symbicort 160 mcg-4.5 mcg/actuati on HFA aerosol inhaler 2017-02 00:00: 00 No 1mcg/ac tuation Symbicort 160 mcg-4.5 mcg/actuati on HFA aerosol inhaler 2017-02 00:00: 00 No 1mcg/ac tuation Symbicort 160 mcg-4.5 mcg/actuati on HFA aerosol inhaler 2017-02 00:00: 00 No 1mcg/ac tuation Symbicort 160 mcg-4.5 mcg/actuati on HFA aerosol inhaler 2017-02 00:00: 00 Yes 1mcg/ac tuation Oleg Lemon Metrogel Vaginal 0.75 % 2017-02 00:00: 00 No 1% Metrogel Vaginal 0.75 % 2017-02 00:00: 00 No 1% Metrogel Vaginal 0.75 % 2017-02 00:00: 00 No 1% Metrogel Vaginal 0.75 % 2017-02 00:00: 00 Yes 1% Oleg Lemon Symbicort 160 mcg-4.5 mcg/actuati on HFA aerosol inhaler 2017-02 00:00: 00 No 1mcg/ac tuation Symbicort 160 mcg-4.5 mcg/actuati on HFA aerosol inhaler 2017-02 00:00: 00 No 1mcg/ac tuation Symbicort 160 mcg-4.5 mcg/actuati on HFA aerosol inhaler 2017-02 00:00: 00 No 1mcg/ac tuation Symbicort 160 mcg-4.5 mcg/actuati on HFA aerosol inhaler 2017-02 00:00: 00 Yes 1mcg/ac shahzad Lemon trazodone 100 mg tablet 2017-02 00:00: 00 No 2mg Seroquel 100 mg tablet 2017-02 00:00: 00 No 1mg trazodone 100 mg tablet 2017-02 00:00: 00 No 2mg Seroquel 100 mg tablet 2017-02 00:00: 00 No 1mg trazodone 100 mg tablet 2017-02 00:00: 00 No 2mg Seroquel 100 mg tablet 2017-02 00:00: 00 No 1mg trazodone 100 mg tablet 2017-02 00:00: 00 Yes 2mg Oleg Lemon Seroquel 100 mg tablet 2017-02 00:00: 00 Yes 1mg Oleg Lemon triamcinolo ne acetonide 0.1 % topical cream 11-10 00:00: 00 No 1% triamcinolo ne acetonide 0.1 % topical cream 11-10 00:00: 00 No 1% triamcinolo ne acetonide 0.1 % topical cream 11-10 00:00: 00 No 1% triamcinolo ne acetonide 0.1 % topical cream 11-10 00:00: 00 Yes 1% Oleg Lemon trazodone 100 mg tablet 11-04 00:00: 00 No 2mg Seroquel 100 mg tablet 11-04 00:00: 00 No 1mg trazodone 100 mg tablet 11-04 00:00: 00 No 2mg Seroquel 100 mg tablet 11-04 00:00: 00 No 1mg trazodone 100 mg tablet 11-04 00:00: 00 No 2mg Seroquel 100 mg tablet 11-04 00:00: 00 No 1mg trazodone 100 mg tablet 11-04 00:00: 00 Yes 2mg Oleg Lemon Seroquel 100 mg tablet 11-04 00:00: 00 Yes 1mg Oleg Lemon Seroquel 100 mg tablet 11-03 00:00: 00 No 1mg Seroquel 100 mg tablet 11-03 00:00: 00 No 1mg Seroquel 100 mg tablet 11-03 00:00: 00 No 1mg Seroquel 100 mg tablet 11-03 00:00: 00 Yes 1mg Oleg Lemon Seroquel 100 mg tablet 09-15 00:00: 00 No 1mg Seroquel 100 mg tablet 09-15 00:00: 00 No 1mg Seroquel 100 mg tablet 09-15 00:00: 00 No 1mg Seroquel 100 mg tablet 09-15 00:00: 00 Yes 1mg Oleg Lemon trazodone 100 mg tablet 09-08 00:00: 00 No 2mg trazodone 100 mg tablet 09-08 00:00: 00 No 2mg trazodone 100 mg tablet 09-08 00:00: 00 No 2mg trazodone 100 mg tablet 09-08 00:00: 00 Yes 2mg Oleg Lemon Seroquel 100 mg tablet 08-11 00:00: 00 No 1mg trazodone 100 mg tablet 08-11 00:00: 00 No 2mg Seroquel 100 mg tablet 08-11 00:00: 00 No 1mg trazodone 100 mg tablet 08-11 00:00: 00 No 2mg Seroquel 100 mg tablet 08-11 00:00: 00 No 1mg trazodone 100 mg tablet 08-11 00:00: 00 No 2mg Seroquel 100 mg tablet 08-11 00:00: 00 Yes 1mg Oleg Lemon trazodone 100 mg tablet 08-11 00:00: 00 Yes 2mg Oleg Lemon azithromyci n 250 mg tablet 07-26 00:00: 00 No mg prednisone 20 mg tablet 07-26 00:00: 00 No mg promethazin e-DM 6.25 mg-15 mg/5 mL syrup 07-26 00:00: 00 No 10mg/5 mL azithromyci n 250 mg tablet 07-26 00:00: 00 No mg prednisone 20 mg tablet 07-26 00:00: 00 No mg promethazin e-DM 6.25 mg-15 mg/5 mL syrup 07-26 00:00: 00 No 10mg/5 mL azithromyci n 250 mg tablet 07-26 00:00: 00 No mg prednisone 20 mg tablet 07-26 00:00: 00 No mg promethazin e-DM 6.25 mg-15 mg/5 mL syrup 07-26 00:00: 00 No 10mg/5 mL azithromyci n 250 mg tablet 07-26 00:00: 00 Yes mg Oleg Lemon prednisone 20 mg tablet 07-26 00:00: 00 Yes mg Oleg Lemon promethazin e-DM 6.25 mg-15 mg/5 mL syrup 07-26 00:00: 00 Yes 10mg/5 mL Oleg Lemon Seroquel 100 mg tablet 07-14 00:00: 00 No 1mg trazodone 100 mg tablet 07-14 00:00: 00 No 2mg Seroquel 100 mg tablet 07-14 00:00: 00 No 1mg Seroquel 100 mg tablet 07-14 00:00: 00 No 1mg trazodone 100 mg tablet 07-14 00:00: 00 No 2mg trazodone 100 mg tablet 07-14 00:00: 00 No 2mg Seroquel 100 mg tablet 07-14 00:00: 00 Yes 1mg Oleg Lemon trazodone 100 mg tablet 07-14 00:00: 00 Yes 2mg Oleg Lemon Symbicort 160 mcg-4.5 mcg/actuati on HFA aerosol inhaler 04-07 00:00: 00 No 1mcg/ac tuation prednisone 20 mg tablet 04-07 00:00: 00 No 1mg diclofenac sodium 75 mg tablet,hilda yed release 04-07 00:00: 00 No 1mg Seroquel 100 mg tablet 04-07 00:00: 00 No 1mg azithromyci n 250 mg tablet 04-07 00:00: 00 No mg trazodone 100 mg tablet 04-07 00:00: 00 No 2mg Symbicort 160 mcg-4.5 mcg/actuati on HFA aerosol inhaler 04-07 00:00: 00 No 1mcg/ac tuation prednisone 20 mg tablet 04-07 00:00: 00 No 1mg diclofenac sodium 75 mg tablet,hilda yed release 04-07 00:00: 00 No 1mg Seroquel 100 mg tablet 04-07 00:00: 00 No 1mg azithromyci n 250 mg tablet 04-07 00:00: 00 No mg trazodone 100 mg tablet 04-07 00:00: 00 No 2mg Symbicort 160 mcg-4.5 mcg/actuati on HFA aerosol inhaler 04-07 00:00: 00 No 1mcg/ac tuation prednisone 20 mg tablet 04-07 00:00: 00 No 1mg diclofenac sodium 75 mg tablet,hilda yed release 04-07 00:00: 00 No 1mg Seroquel 100 mg tablet 04-07 00:00: 00 No 1mg azithromyci n 250 mg tablet 04-07 00:00: 00 No mg trazodone 100 mg tablet 04-07 00:00: 00 No 2mg Symbicort 160 mcg-4.5 mcg/actuati on HFA aerosol inhaler 04-07 00:00: 00 Yes 1mcg/ac tuation Oleg Lemon prednisone 20 mg tablet 04-07 00:00: 00 Yes 1mg Oleg Lemon diclofenac sodium 75 mg tablet,hilda yed release 04-07 00:00: 00 Yes 1mg Oleg Lemon Seroquel 100 mg tablet 04-07 00:00: 00 Yes 1mg Oleg Lemon azithromyci n 250 mg tablet 04-07 00:00: 00 Yes mg Oleg Lemon trazodone 100 mg tablet 04-07 00:00: 00 Yes 2mg Oleg Lemon Seroquel 100 mg tablet 03-10 00:00: 00 No 1mg trazodone 100 mg tablet 03-10 00:00: 00 No 2mg Seroquel 100 mg tablet 03-10 00:00: 00 No 1mg trazodone 100 mg tablet 03-10 00:00: 00 No 2mg Seroquel 100 mg tablet 03-10 00:00: 00 No 1mg trazodone 100 mg tablet 03-10 00:00: 00 No 2mg Seroquel 100 mg tablet 03-10 00:00: 00 Yes 1mg Oleg Lemon trazodone 100 mg tablet 03-10 00:00: 00 Yes 2mg Oleg Lemon Seroquel 100 mg tablet 2016-02 00:00: 00 No 1mg trazodone 100 mg tablet 2016-02 00:00: 00 No 2mg Seroquel 100 mg tablet 2016-02 00:00: 00 No 1mg trazodone 100 mg tablet 2016-02 00:00: 00 No 2mg Seroquel 100 mg tablet 2016-02 00:00: 00 No 1mg trazodone 100 mg tablet 2016-02 00:00: 00 No 2mg Seroquel 100 mg tablet 2016-02 00:00: 00 Yes 1mg Oleg Lemon trazodone 100 mg tablet 2016-02 00:00: 00 Yes 2mg Oleg Lemon Seroquel 100 mg tablet 2016-02 00:00: 00 No 1mg trazodone 100 mg tablet 2016-02 00:00: 00 No 2mg Seroquel 100 mg tablet 2016-02 00:00: 00 No 1mg trazodone 100 mg tablet 2016-02 00:00: 00 No 2mg Seroquel 100 mg tablet 2016-02 00:00: 00 No 1mg trazodone 100 mg tablet 2016-02 00:00: 00 No 2mg Seroquel 100 mg tablet 2016-02 00:00: 00 Yes 1mg Oleg Lemon trazodone 100 mg tablet 2016-02 00:00: 00 Yes 2mg Oleg Lemon hydroxyzine HCl 25 mg tablet 2016-02 00:00: 00 No 1mg clindamycin 300 mg capsule 2016-02 00:00: 00 No 1mg hydroxyzine HCl 25 mg tablet 2016-02 00:00: 00 No 1mg clindamycin 300 mg capsule 2016-02 00:00: 00 No 1mg hydroxyzine HCl 25 mg tablet 2016-02 00:00: 00 No 1mg clindamycin 300 mg capsule 2016-02 00:00: 00 No 1mg hydroxyzine HCl 25 mg tablet 2016-02 00:00: 00 Yes 1mg Oleg Lemon clindamycin 300 mg capsule 2016-02 00:00: 00 Yes 1mg Oleg Lemon amoxicillin 875 mg-potassiu m clavulanate 125 mg tablet 11-02 00:00: 00 No 1mg Tessalon Perles 100 mg capsule 11-02 00:00: 00 No 1mg amoxicillin 875 mg-potassiu m clavulanate 125 mg tablet 11-02 00:00: 00 No 1mg Tessalon Perles 100 mg capsule 11-02 00:00: 00 No 1mg amoxicillin 875 mg-potassiu m clavulanate 125 mg tablet 11-02 00:00: 00 No 1mg Tessalon Perles 100 mg capsule 11-02 00:00: 00 No 1mg amoxicillin 875 mg-rajiu m clavulanate 125 mg tablet 11-02 00:00: 00 Yes 1mg Oleg Lemon Tessalon Perles 100 mg capsule 11-02 00:00: 00 Yes 1mg Oleg Lemon Seroquel 100 mg tablet 09-15 00:00: 00 No 1mg trazodone 100 mg tablet 09-15 00:00: 00 No 2mg Seroquel 100 mg tablet 09-15 00:00: 00 No 1mg trazodone 100 mg tablet 09-15 00:00: 00 No 2mg Seroquel 100 mg tablet 09-15 00:00: 00 No 1mg trazodone 100 mg tablet 09-15 00:00: 00 No 2mg Seroquel 100 mg tablet 09-15 00:00: 00 Yes 1mg Oleg Lemon trazodone 100 mg tablet 09-15 00:00: 00 Yes 2mg Oleg Lemon Flagyl 500 mg tablet 09-10 00:00: 00 No 1mg Flagyl 500 mg tablet 09-10 00:00: 00 No 1mg Flagyl 500 mg tablet 09-10 00:00: 00 No 1mg Flagyl 500 mg tablet 09-10 00:00: 00 Yes 1mg Oleg Lemon ProAir HFA 90 mcg/actuati on aerosol inhaler 09-01 00:00: 00 No 2mcg/ac tuation nicotine 7 mg/24 hr daily transdermal patch 09-01 00:00: 00 No 1mg/24 hr nifedipine ER 30 mg tablet,exte nded release 09-01 00:00: 00 No 1mg prednisone 20 mg tablet 09-01 00:00: 00 No 1mg Vitamin B-12 1,000 mcg tablet 09-01 00:00: 00 No 1mcg ProAir HFA 90 mcg/actuati on aerosol inhaler 09-01 00:00: 00 No 2mcg/ac tuation nicotine 7 mg/24 hr daily transdermal patch 09-01 00:00: 00 No 1mg/24 hr nifedipine ER 30 mg tablet,exte nded release 09-01 00:00: 00 No 1mg prednisone 20 mg tablet 09-01 00:00: 00 No 1mg Vitamin B-12 1,000 mcg tablet 09-01 00:00: 00 No 1mcg ProAir HFA 90 mcg/actuati on aerosol inhaler 09-01 00:00: 00 No 2mcg/ac tuation nicotine 7 mg/24 hr daily transdermal patch 09-01 00:00: 00 No 1mg/24 hr nifedipine ER 30 mg tablet,exte nded release 09-01 00:00: 00 No 1mg prednisone 20 mg tablet 09-01 00:00: 00 No 1mg Vitamin B-12 1,000 mcg tablet 09-01 00:00: 00 No 1mcg ProAir HFA 90 mcg/actuati on aerosol inhaler 09-01 00:00: 00 Yes 2mcg/ac tuation Oleg Lemon nicotine 7 mg/24 hr daily transdermal patch 09-01 00:00: 00 Yes 1mg/24 hr Oleg Lemon nifedipine ER 30 mg tablet,exte nded release 09-01 00:00: 00 Yes 1mg Oleg Lemon prednisone 20 mg tablet 09-01 00:00: 00 Yes 1mg Oleg Lemon Vitamin B-12 1,000 mcg tablet 09-01 00:00: 00 Yes 1mcg Oleg Lemon Seroquel 100 mg tablet 08-18 00:00: 00 No 1mg trazodone 100 mg tablet 08-18 00:00: 00 No 2mg Seroquel 100 mg tablet 08-18 00:00: 00 No 1mg trazodone 100 mg tablet 08-18 00:00: 00 No 2mg Seroquel 100 mg tablet 08-18 00:00: 00 No 1mg trazodone 100 mg tablet 08-18 00:00: 00 No 2mg Seroquel 100 mg tablet 08-18 00:00: 00 Yes 1mg Oleg Lemon trazodone 100 mg tablet 08-18 00:00: 00 Yes 2mg Oleg Lemon Seroquel 100 mg tablet 06-30 00:00: 00 No mg trazodone 100 mg tablet 06-30 00:00: 00 No 2mg Seroquel 100 mg tablet 06-30 00:00: 00 No mg trazodone 100 mg tablet 06-30 00:00: 00 No 2mg Seroquel 100 mg tablet 06-30 00:00: 00 No mg trazodone 100 mg tablet 06-30 00:00: 00 No 2mg Seroquel 100 mg tablet 06-30 00:00: 00 Yes mg Oleg Lemon trazodone 100 mg tablet 06-30 00:00: 00 Yes 2mg Oleg Lemon Seroquel 100 mg tablet 06-02 00:00: 00 No mg trazodone 100 mg tablet 06-02 00:00: 00 No 2mg Seroquel 100 mg tablet 06-02 00:00: 00 No mg trazodone 100 mg tablet 06-02 00:00: 00 No 2mg Seroquel 100 mg tablet 06-02 00:00: 00 No mg trazodone 100 mg tablet 06-02 00:00: 00 No 2mg Seroquel 100 mg tablet 06-02 00:00: 00 Yes mg Oleg Lemon trazodone 100 mg tablet 06-02 00:00: 00 Yes 2mg Oleg Lemon Flagyl 500 mg tablet 05-21 00:00: 00 No 1mg Flagyl 500 mg tablet 05-21 00:00: 00 No 1mg Flagyl 500 mg tablet 05-21 00:00: 00 No 1mg Flagyl 500 mg tablet 05-21 00:00: 00 Yes 1mg Oleg Lemon Seroquel 100 mg tablet 04-15 00:00: 00 No mg trazodone 100 mg tablet 04-15 00:00: 00 No 2mg Seroquel 100 mg tablet 04-15 00:00: 00 No mg trazodone 100 mg tablet 04-15 00:00: 00 No 2mg Seroquel 100 mg tablet 04-15 00:00: 00 No mg trazodone 100 mg tablet 04-15 00:00: 00 No 2mg Seroquel 100 mg tablet 04-15 00:00: 00 Yes mg Oleg Lemon trazodone 100 mg tablet 04-15 00:00: 00 Yes 2mg Oleg Lemon Seroquel 100 mg tablet 04-14 00:00: 00 No mg trazodone 100 mg tablet 04-14 00:00: 00 No 2mg Seroquel 100 mg tablet 04-14 00:00: 00 No mg trazodone 100 mg tablet 04-14 00:00: 00 No 2mg Seroquel 100 mg tablet 04-14 00:00: 00 No mg trazodone 100 mg tablet 04-14 00:00: 00 No 2mg Seroquel 100 mg tablet 04-14 00:00: 00 Yes mg Oleg Lemon trazodone 100 mg tablet 04-14 00:00: 00 Yes 2mg Oleg Lemon Seroquel 100 mg tablet 03-17 00:00: 00 No 1mg trazodone 100 mg tablet 03-17 00:00: 00 No 2mg Seroquel 100 mg tablet 03-17 00:00: 00 No 1mg trazodone 100 mg tablet 03-17 00:00: 00 No 2mg Seroquel 100 mg tablet 03-17 00:00: 00 No 1mg trazodone 100 mg tablet 03-17 00:00: 00 No 2mg Seroquel 100 mg tablet 03-17 00:00: 00 Yes 1mg Oleg Lemon trazodone 100 mg tablet 03-17 00:00: 00 Yes 2mg Oleg Lemon Seroquel 100 mg tablet 2015-02 00:00: 00 No 1mg Seroquel 100 mg tablet 2015-02 00:00: 00 No 1mg Seroquel 100 mg tablet 2015-02 00:00: 00 No 1mg Seroquel 100 mg tablet 2015-02 00:00: 00 Yes 1mg Oleg Lemon hydrocodone 7.5 mg-acetamin ophen 325 mg tablet 2015-02 00:00: 00 No mg hydrocodone 7.5 mg-acetamin ophen 325 mg tablet 2015-02 00:00: 00 No mg hydrocodone 7.5 mg-acetamin ophen 325 mg tablet 2015-02 00:00: 00 No mg hydrocodone 7.5 mg-acetamin ophen 325 mg tablet 2015-02 00:00: 00 Yes mg Oleg Lemon Flagyl 500 mg tablet 2015-02 00:00: 00 No 1mg Flagyl 500 mg tablet 2015-02 00:00: 00 No 1mg Flagyl 500 mg tablet 2015-02 00:00: 00 No 1mg Flagyl 500 mg tablet 2015-02 00:00: 00 Yes 1mg Oleg Lemon Symbicort 160 mcg-4.5 mcg/actuati on HFA aerosol inhaler 2015-02 00:00: 00 No 12mcg/a ctuatio n Symbicort 160 mcg-4.5 mcg/actuati on HFA aerosol inhaler 2015-02 00:00: 00 No 12mcg/a ctuatio n Symbicort 160 mcg-4.5 mcg/actuati on HFA aerosol inhaler 2015-02 00:00: 00 No 12mcg/a ctuatio n Symbicort 160 mcg-4.5 mcg/actuati on HFA aerosol inhaler 2015-02 00:00: 00 Yes 12mcg/a ctuatio jelani Lemon Seroquel 100 mg tablet 08-28 00:00: 00 No 1mg Cipro 500 mg tablet 08-28 00:00: 00 No 1mg naproxen 500 mg tablet 08-28 00:00: 00 No 1mg Seroquel 100 mg tablet 08-28 00:00: 00 No 1mg Cipro 500 mg tablet 08-28 00:00: 00 No 1mg naproxen 500 mg tablet 08-28 00:00: 00 No 1mg Seroquel 100 mg tablet 08-28 00:00: 00 No 1mg Cipro 500 mg tablet 08-28 00:00: 00 No 1mg naproxen 500 mg tablet 08-28 00:00: 00 No 1mg Seroquel 100 mg tablet 08-28 00:00: 00 Yes 1mg Oleg Lemon Cipro 500 mg tablet 08-28 00:00: 00 Yes 1mg Oleg Lemon naproxen 500 mg tablet 08-28 00:00: 00 Yes 1mg Oleg Lemon Spiriva with HandiHaler 18 mcg and inhalation capsules 08-07 00:00: 00 No mcg Spiriva with HandiHaler 18 mcg and inhalation capsules 08-07 00:00: 00 No mcg Spiriva with HandiHaler 18 mcg and inhalation capsules 08-07 00:00: 00 No mcg Spiriva with HandiHaler 18 mcg and inhalation capsules 08-07 00:00: 00 Yes mcg Oleg Lemon Symbicort 160 mcg-4.5 mcg/actuati on HFA aerosol inhaler 07-29 00:00: 00 No mcg/act uation Symbicort 160 mcg-4.5 mcg/actuati on HFA aerosol inhaler 07-29 00:00: 00 No mcg/act uation Symbicort 160 mcg-4.5 mcg/actuati on HFA aerosol inhaler 07-29 00:00: 00 No mcg/act uation Symbicort 160 mcg-4.5 mcg/actuati on HFA aerosol inhaler 07-29 00:00: 00 Yes mcg/act uation Oleg Lemon trazodone 100 mg tablet 06-02 00:00: 00 No mg trazodone 100 mg tablet 06-02 00:00: 00 No mg trazodone 100 mg tablet 06-02 00:00: 00 No mg trazodone 100 mg tablet 06-02 00:00: 00 Yes mg Oleg Lemon Immunizations Ordered Immunization Name Filled Immunization Name Date Status Comments Source influenza, seasonal vaccine, quadrivalent, adjuvanted, .5mL dose, preservative-free influenza, seasonal vaccine, quadrivalent, adjuvanted, .5mL dose, preservative-free 2022-12-04 00:00:00 Completed Oleg Lemon Influenza Virus Vaccine Quad IM, Preserv and ABX Free 6 MO-64 YRS 2021-11-09 00:00:00 Completed [facility] Influenza Virus Vaccine Quad IM, Preserv and ABX Free 6 MO-64 YRS 2021-11-09 00:00:00 Completed [facility] Influenza Virus Vaccine Quad IM, Preserv and ABX Free 6 MO-64 YRS 2021-11-09 00:00:00 Completed [facility] Influenza Virus Vaccine Quad IM, Preserv and ABX Free 6 MO-64 YRS 2021-11-09 00:00:00 Completed [facility] Influenza Virus Vaccine Quad IM, Preserv and ABX Free 6 MO-64 YRS 2021-11-09 00:00:00 Completed [facility] Influenza Virus Vaccine Quad IM, Preserv and ABX Free 6 MO-64 YRS 2021-11-09 00:00:00 Completed [facility] Influenza Virus Vaccine Quad IM, Preserv and ABX Free MO-64 2021-11-09 00:00:00 Completed [facility] Influenza Virus Vaccine Quad IM, Preserv and ABX Free 6 MO-64 YRS 2021-11-09 00:00:00 Completed [facility] Influenza Virus Vaccine Quad IM, Preserv and ABX Free 6 MO-64 2021-11-09 00:00:00 Completed [facility] Influenza Virus Vaccine Quad IM, Preserv and ABX Free 6 MO-64 YRS 2021-11-09 00:00:00 Completed [facility] Influenza Virus Vaccine Quad IM, Preserv and ABX Free MO-64 2021-11-09 00:00:00 Completed [facility] Influenza Virus Vaccine Quad IM, Preserv and ABX Free 6 MO-64 YRS 2021-11-09 00:00:00 Completed [facility] Influenza Virus Vaccine Quad IM, Preserv and ABX Free 6 MO-64 YRS 2021-11-09 00:00:00 Completed [facility] Influenza Virus Vaccine Quad IM, Preserv and ABX Free 6 MO-64 YRS 2021-11-09 00:00:00 Completed [facility] Influenza Virus Vaccine Quad IM, Preserv and ABX Free 6 MO-64 YRS 2021-11-09 00:00:00 Completed [facility] Influenza Virus Vaccine Quad IM, Preserv and ABX Free 6 MO-64 YRS (FLUCELVAX) 2021-11-09 00:00:00 Completed [facility] Influenza Virus Vaccine Quad IM, Preserv and ABX Free 6 MO-64 YRS (FLUCELVAX) 2021-11-09 00:00:00 Completed [facility] Influenza, injectable, Madin Fadumo Canine Kidney, preservative-free, quadrivalent 2021-11-09 00:00:00 Completed Influenza, injectable, Madin [place] Canine Kidney, preservative-free, quadrivalent 2021-11-09 00:00:00 Completed Influenza, injectable, Madin [place] Canine Kidney, preservative-free, quadrivalent Influenza, injectable, Madin Fadumo Canine Kidney, preservative-free, quadrivalent 2021-11-09 00:00:00 Completed Oleg Lemon Pneumococcal 13 Conjugate, PCV13 (Prevnar 13) 2020-08-05 00:00:00 Completed [facility] Pneumococcal 13 Conjugate, PCV13 (Prevnar 13) 2020-08-05 00:00:00 Completed [facility] Pneumococcal 13 Conjugate, PCV13 (Prevnar 13) 2020-08-05 00:00:00 Completed [facility] Pneumococcal 13 Conjugate, PCV13 (Prevnar 13) 2020-08-05 00:00:00 Completed [facility] Pneumococcal 13 Conjugate, PCV13 (Prevnar 13) 2020-08-05 00:00:00 Completed [facility] Pneumococcal 13 Conjugate, PCV13 (Prevnar 13) 2020-08-05 00:00:00 Completed [facility] Pneumococcal 13 Conjugate, PCV13 (Prevnar 13) 2020-08-05 00:00:00 Completed [facility] Pneumococcal 13 Conjugate, PCV13 (Prevnar 13) 2020-08-05 00:00:00 Completed [facility] Pneumococcal 13 Conjugate, PCV13 (Prevnar 13) 2020-08-05 00:00:00 Completed [facility] Pneumococcal 13 Conjugate, PCV13 (Prevnar 13) 2020-08-05 00:00:00 Completed [facility] Pneumococcal 13 Conjugate, PCV13 (Prevnar 13) 2020-08-05 00:00:00 Completed [facility] Pneumococcal 13 Conjugate, PCV13 (Prevnar 13) 2020-08-05 00:00:00 Completed [facility] Pneumococcal 13 Conjugate, PCV13 (Prevnar 13) 2020-08-05 00:00:00 Completed [facility] Pneumococcal 13 Conjugate, PCV13 (Prevnar 13) 2020-08-05 00:00:00 Completed [facility] Pneumococcal 13 Conjugate, PCV13 (Prevnar 13) 2020-08-05 00:00:00 Completed [facility] Pneumococcal 13 Conjugate, PCV13 (Prevnar 13) 2020-08-05 00:00:00 Completed [facility] Pneumococcal 13 Conjugate, PCV13 (Prevnar 13) 2020-08-05 00:00:00 Completed [facility] Pneumococcal conjugate P 2020-08-05 00:00:00 Completed SHINGRIX VACCINE 2020-08-05 00:00:00 Completed Pneumococcal conjugate P 2020-08-05 00:00:00 Completed SHINGRIX VACCINE 2020-08-05 00:00:00 Completed Pneumococcal conjugate P 2020-08-05 00:00:00 Completed SHINGRIX VACCINE 2020-08-05 00:00:00 Completed Pneumococcal conjugate P 2020-08-05 00:00:00 Completed SHINGRIX VACCINE 2020-08-05 00:00:00 Completed Pneumococcal conjugate P Pneumococcal conjugate P 2020-08-05 00:00:00 Completed Oleg Lemon SHINGRIX VACCINE SHINGRIX VACCINE 2020-08-05 00:00:00 Completed Oleg Lemon SARS-COV-2 COVID-19 PFIZER VACCINE 2020-08-01 00:00:00 Completed [facility] SARS-COV-2 COVID-19 PFIZER VACCINE 2020-08-01 00:00:00 Completed [facility] SARS-COV-2 COVID-19 PFIZER VACCINE 2020-08-01 00:00:00 Completed [facility] SARS-COV-2 COVID-19 PFIZER VACCINE 2020-08-01 00:00:00 Completed [facility] SARS-COV-2 COVID-19 PFIZER VACCINE 2020-08-01 00:00:00 Completed [facility] SARS-COV-2 COVID-19 PFIZER VACCINE 2020-08-01 00:00:00 Completed [facility] SARS-COV-2 COVID-19 PFIZER VACCINE 2020-08-01 00:00:00 Completed [facility] SARS-COV-2 COVID-19 PFIZER VACCINE 2020-08-01 00:00:00 Completed [facility] SARS-COV-2 COVID-19 PFIZER VACCINE 2020-08-01 00:00:00 Completed [facility] SARS-COV-2 COVID-19 PFIZER VACCINE 2020-08-01 00:00:00 Completed [facility] SARS-COV-2 COVID-19 PFIZER VACCINE 2020-08-01 00:00:00 Completed [facility] SARS-COV-2 COVID-19 PFIZER VACCINE 2020-08-01 00:00:00 Completed [facility] SARS-COV-2 COVID-19 PFIZER VACCINE 2020-08-01 00:00:00 Completed [facility] SARS-COV-2 COVID-19 PFIZER VACCINE 2020-08-01 00:00:00 Completed [facility] SARS-COV-2 COVID-19 PFIZER VACCINE 2020-08-01 00:00:00 Completed [facility] SARS-COV-2 COVID-19 PFIZER VACCINE 2020-08-01 00:00:00 Completed [facility] SARS-COV-2 COVID-19 PFIZER VACCINE 2020-08-01 00:00:00 Completed [facility] Pfizer COVID-19 Vaccine 2020-08-01 00:00:00 Completed Pfizer COVID-19 Vaccine 2020-08-01 00:00:00 Completed Pfizer COVID-19 Vaccine 2020-08-01 00:00:00 Completed Pfizer COVID-19 Vaccine 2020-08-01 00:00:00 Completed Pfizer COVID-19 Vaccine Pfizer COVID-19 Vaccine 2020-08-01 00:00:00 Completed Oleg Lemon SARS-COV-2 COVID-19 PFIZER VACCINE 2020-07-11 00:00:00 Completed [facility] SARS-COV-2 COVID-19 PFIZER VACCINE 2020-07-11 00:00:00 Completed [facility] SARS-COV-2 COVID-19 PFIZER VACCINE 2020-07-11 00:00:00 Completed [facility] SARS-COV-2 COVID-19 PFIZER VACCINE 2020-07-11 00:00:00 Completed [facility] SARS-COV-2 COVID-19 PFIZER VACCINE 2020-07-11 00:00:00 Completed [facility] SARS-COV-2 COVID-19 PFIZER VACCINE 2020-07-11 00:00:00 Completed [facility] SARS-COV-2 COVID-19 PFIZER VACCINE 2020-07-11 00:00:00 Completed [facility] SARS-COV-2 COVID-19 PFIZER VACCINE 2020-07-11 00:00:00 Completed [facility] SARS-COV-2 COVID-19 PFIZER VACCINE 2020-07-11 00:00:00 Completed [facility] SARS-COV-2 COVID-19 PFIZER VACCINE 2020-07-11 00:00:00 Completed [facility] SARS-COV-2 COVID-19 PFIZER VACCINE 2020-07-11 00:00:00 Completed [facility] SARS-COV-2 COVID-19 PFIZER VACCINE 2020-07-11 00:00:00 Completed [facility] SARS-COV-2 COVID-19 PFIZER VACCINE 2020-07-11 00:00:00 Completed [facility] SARS-COV-2 COVID-19 PFIZER VACCINE 2020-07-11 00:00:00 Completed [facility] SARS-COV-2 COVID-19 PFIZER VACCINE 2020-07-11 00:00:00 Completed [facility] SARS-COV-2 COVID-19 PFIZER VACCINE 2020-07-11 00:00:00 Completed [facility] SARS-COV-2 COVID-19 PFIZER VACCINE 2020-07-11 00:00:00 Completed [facility] Influenza, seasonal, inj 2019-12-13 00:00:00 Completed Influenza, seasonal, inj 2019-12-13 00:00:00 Completed Influenza, seasonal, inj 2019-12-13 00:00:00 Completed Influenza, seasonal, inj 2019-12-13 00:00:00 Completed Influenza, seasonal, inj Influenza, seasonal, inj 2019-12-13 00:00:00 Completed Oleg F Ion Influenza Virus Vaccine Quad .5 mL IM 6+ MO 2019-11-26 00:00:00 Completed [facility] Influenza Virus Vaccine Quad .5 mL IM 6+ MO 2019-11-26 00:00:00 Completed [facility] Influenza Virus Vaccine Quad .5 mL IM 6+ MO 2019-11-26 00:00:00 Completed [facility] Influenza Virus Vaccine Quad .5 mL IM 6+ MO 2019-11-26 00:00:00 Completed [facility] Influenza Virus Vaccine Quad .5 mL IM 6+ MO 2019-11-26 00:00:00 Completed [facility] Influenza Virus Vaccine Quad .5 mL IM 6+ MO 2019-11-26 00:00:00 Completed [facility] Influenza Virus Vaccine Quad .5 mL IM 6+ MO 2019-11-26 00:00:00 Completed [facility] Influenza Virus Vaccine Quad .5 mL IM 6+ MO 2019-11-26 00:00:00 Completed [facility] Influenza Virus Vaccine Quad .5 mL IM 6+ MO 2019-11-26 00:00:00 Completed [facility] Influenza Virus Vaccine Quad .5 mL IM 6+ MO 2019-11-26 00:00:00 Completed [facility] Influenza Virus Vaccine Quad .5 mL IM 6+ MO 2019-11-26 00:00:00 Completed [facility] Influenza Virus Vaccine Quad .5 mL IM 6+ MO 2019-11-26 00:00:00 Completed [facility] Influenza Virus Vaccine Quad .5 mL IM 6+ MO 2019-11-26 00:00:00 Completed [facility] Influenza Virus Vaccine Quad .5 mL IM 6+ MO 2019-11-26 00:00:00 Completed [facility] Influenza Virus Vaccine Quad .5 mL IM 6+ MO 2019-11-26 00:00:00 Completed [facility] Influenza Virus Vaccine Quad .5 mL IM 6+ MO (FLUZONE/FLULAVAL/F LUARIX) 2019-11-26 00:00:00 Completed [facility] Influenza Virus Vaccine Quad .5 mL IM 6+ MO (FLUZONE/FLULAVAL/F LUARIX) 2019-11-26 00:00:00 Completed [facility] Influenza, seasonal, inj 2018-03-02 00:00:00 Completed Influenza, seasonal, inj 2018-03-02 00:00:00 Completed Influenza, seasonal, inj 2018-03-02 00:00:00 Completed Influenza, seasonal, inj 2018-03-02 00:00:00 Completed Influenza, seasonal, inj Influenza, seasonal, inj 2018-03-02 00:00:00 Completed Oleg Sandra Ion Tdap 2016-12-31 00:00:00 Completed Tdap 2016-12-31 00:00:00 Completed Tdap 2016-12-31 00:00:00 Completed Tdap 2016-12-31 00:00:00 Completed Tdap Tdap 2016-12-31 00:00:00 Completed Oleg Sandra Ion SARS-COV-2 COVID-19 PFIZER VACCINE Unknown Completed [facility] Influenza Virus Vaccine Quad IM, Preserv and ABX Free 6 MO-64 YRS (FLUCELVAX) Unknown Completed [facility] Influenza Virus Vaccine Quad .5 mL IM 6+ MO (FLUZONE/FLULAVAL/F LUARIX) Unknown Completed [facility] Pneumococcal 13 Conjugate, PCV13 (Prevnar 13) Unknown Completed [facility] SARS-COV-2 COVID-19 PFIZER VACCINE Unknown Completed [facility] Influenza Virus Vaccine Quad IM, Preserv and ABX Free 6 MO-64 YRS (FLUCELVAX) Unknown Completed [facility] Influenza Virus Vaccine Quad .5 mL IM 6+ MO (FLUZONE/FLULAVAL/F LUARIX) Unknown Completed [facility] Pneumococcal 13 Conjugate, PCV13 (Prevnar 13) Unknown Completed [facility] SARS-COV-2 COVID-19 PFIZER VACCINE Unknown Completed [facility] Influenza Virus Vaccine Quad IM, Preserv and ABX Free 6 MO-64 YRS (FLUCELVAX) Unknown Completed [facility] Influenza Virus Vaccine Quad .5 mL IM 6+ MO (FLUZONE/FLULAVAL/F LUARIX) Unknown Completed [facility] Pneumococcal 13 Conjugate, PCV13 (Prevnar 13) Unknown Completed [facility] SARS-COV-2 COVID-19 PFIZER VACCINE Unknown Completed [facility] Influenza Virus Vaccine Quad IM, Preserv and ABX Free 6 MO-64 YRS (FLUCELVAX) Unknown Completed [facility] Influenza Virus Vaccine Quad .5 mL IM 6+ MO (FLUZONE/FLULAVAL/F LUARIX) Unknown Completed [facility] Pneumococcal 13 Conjugate, PCV13 (Prevnar 13) Unknown Completed [facility] SARS-COV-2 COVID-19 PFIZER VACCINE Unknown Completed [facility] Influenza Virus Vaccine Quad IM, Preserv and ABX Free 6 MO-64 YRS (FLUCELVAX) Unknown Completed [facility] Influenza Virus Vaccine Quad .5 mL IM 6+ MO (FLUZONE/FLULAVAL/F LUARIX) Unknown Completed [facility] Pneumococcal 13 Conjugate, PCV13 (Prevnar 13) Unknown Completed [facility] SARS-COV-2 COVID-19 PFIZER VACCINE Unknown Completed [facility] Influenza Virus Vaccine Quad IM, Preserv and ABX Free 6 MO-64 YRS (FLUCELVAX) Unknown Completed [facility] Influenza Virus Vaccine Quad .5 mL IM 6+ MO (FLUZONE/FLULAVAL/F LUARIX) Unknown Completed [facility] Pneumococcal 13 Conjugate, PCV13 (Prevnar 13) Unknown Completed [facility] SARS-COV-2 COVID-19 PFIZER VACCINE Unknown Completed [facility] Influenza Virus Vaccine Quad IM, Preserv and ABX Free 6 MO-64 YRS (FLUCELVAX) Unknown Completed [facility] Influenza Virus Vaccine Quad .5 mL IM 6+ MO (FLUZONE/FLULAVAL/F LUARIX) Unknown Completed [facility] Pneumococcal 13 Conjugate, PCV13 (Prevnar 13) Unknown Completed [facility] SARS-COV-2 COVID-19 PFIZER VACCINE Unknown Completed [facility] Influenza Virus Vaccine Quad IM, Preserv and ABX Free 6 MO-64 YRS (FLUCELVAX) Unknown Completed [facility] Influenza Virus Vaccine Quad .5 mL IM 6+ MO (FLUZONE/FLULAVAL/F LUARIX) Unknown Completed [facility] Pneumococcal 13 Conjugate, PCV13 (Prevnar 13) Unknown Completed [facility] SARS-COV-2 COVID-19 PFIZER VACCINE Unknown Completed [facility] Influenza Virus Vaccine Quad IM, Preserv and ABX Free 6 MO-64 YRS (FLUCELVAX) Unknown Completed [facility] Influenza Virus Vaccine Quad .5 mL IM 6+ MO (FLUZONE/FLULAVAL/F LUARIX) Unknown Completed [facility] Pneumococcal 13 Conjugate, PCV13 (Prevnar 13) Unknown Completed [facility] Vital Signs Vital Name Observation Time Observation Value Comments S ource Body temperature 2023-04-14 21:38:00 35.72 [facility] Body weight 2023-04-14 21:38:00 54.205 kg [facility] BMI 2023-04-14 21:38:00 22.58 kg/m2 [facility] Body temperature 2022-12-16 18:51:00 36.17 [facility] Body weight 2022-12-16 18:51:00 55.792 kg [facility] BMI 2022-12-16 18:51:00 23.24 kg/m2 [facility] Body temperature 2022-11-18 18:27:00 36.06 [facility] Body height 2022-11-18 18:27:00 154.9 cm [facility] Body weight 2022-11-18 18:27:00 56.7 kg [facility] BMI 2022-11-18 18:27:00 23.62 kg/m2 [facility] Systolic blood pressure 2022-11-02 17:15:00 134 mm[Hg] [facility] Diastolic blood pressure 2022-11-02 17:15:00 74 mm[Hg] [facility] Heart rate 2022-11-02 17:15:00 83 /min [facility] Oxygen saturation in Arterial blood by Pulse oximetry 2022-11-02 17:15:00 95 /min [facility] Respiratory rate 2022-11-02 16:45:00 13 /min [facility] Body temperature 2022-11-02 16:30:00 36.39 [facility] Body height 2022-11-02 12:37:00 [facility]9 [facility] 2022-11-02 12:37:00 54[facility]432 [facility] BMI 2022-11-02 12:37:00 22.67 kg/m2 [facility] height 2022-11-02 12:37:00 154.9 [facility] 2022-11-02 12:37:00 54.432 [facility] 2022-11-02 12:37:00 22.67 kg/m2 [facility] Systolic blood pressure 2022-11-02 12:29:00 150 mm[Hg] [facility] Diastolic blood pressure 2022-11-02 12:29:00 85 mm[Hg] [facility] Heart rate 2022-11-02 12:29:00 90 /min [facility] 2022-11-02 12:29:00 36.78 [facility] Respiratory rate 2022-11-02 12:29:00 16 /min [facility] Oxygen saturation in Arterial blood by Pulse oximetry 2022-11-02 12:29:00 94 /min [facility] Body temperature 2022-09-30 18:29:00 36.11 [facility] Body weight 2022-09-30 18:29:00 54.432 kg [facility] BMI 2022-09-30 18:29:00 22.67 kg/m2 [facility] Body temperature 2022-08-26 19:44:00 36.39 [facility] Body height 2022-08-26 19:44:00 154.9 cm [facility] Body weight 2022-08-26 19:44:00 54.432 kg [facility] BMI 2022-08-26 19:44:00 22.67 kg/m2 [facility] Body temperature 2022-08-05 19:11:00 36.28 [facility] Body height 2022-08-05 19:11:00 154.9 cm [facility] Body weight 2022-08-05 19:11:00 54.432 kg [facility] BMI 2022-08-05 19:11:00 22.67 kg/m2 [facility] Respiratory rate 2022-07-21 15:15:00 16 /min [facility] Oxygen saturation in Arterial blood by Pulse oximetry 2022-07-21 15:15:00 96 /min [facility] Systolic blood pressure 2022-07-21 15:00:00 141 mm[Hg] [facility] Diastolic blood pressure 2022-07-21 15:00:00 99 mm[Hg] [facility] Heart rate 2022-07-21 14:05:00 108 /[facility] Body temperature 2022-07-21 14:05:00 36.39 [facility] Body height 2022-07-21 11:06:00 154.9 cm [facility] Body weight 2022-07-21 11:06:00 54.432 kg [facility] BMI 2022-07-21 11:06:00 22.67 kg/m2 [facility] Systolic blood pressure 2022-07-21 11:06:00 147 mm[Hg] [facility] Diastolic blood pressure 2022-07-21 11:06:00 78 mm[Hg] [facility] Heart rate 2022-07-21 11:06:00 108 /min [facility] Body temperature 2022-07-21 11:06:00 36.67 Althea [facility] Body height 2022-07-21 11:06:00 154.9 cm [facility] Body weight 2022-07-21 11:06:00 54.432 kg [facility] BMI 2022-07-21 11:06:00 22.67 kg/m2 [facility] Oxygen saturation in Arterial blood by Pulse oximetry 2022-07-21 11:06:00 100 /min [facility] Systolic blood pressure 2022-06-21 19:58:00 112 mm[Hg] [facility] Diastolic blood pressure 2022-06-21 19:58:00 66 mm[Hg] [facility] Heart rate 2022-06-21 19:58:00 112 /min [facility] Body temperature 2022-06-21 19:58:00 36.33 [facility] Body height 2022-06-21 19:58:00 154.9 cm [facility] Body weight 2022-06-21 19:58:00 61.236 kg [facility] BMI 2022-06-21 19:58:00 25.51 kg/m2 [facility] Body temperature 2022-06-15 20:38:00 36.56 Al[facility] Respiratory rate 2022-06-15 20:38:00 18 /min [facility] Oxygen saturation in Arterial blood by Pulse oximetry 2022-06-15 20:38:00 94 /min [facility] Systolic blood pressure 2022-06-15 20:38:00 161 mm[Hg] [facility] Diastolic blood pressure 2022-06-15 20:38:00 98 mm[Hg] [facility] Heart rate 2022-06-15 20:38:00 115 /min [facility] Body height 2022-06-15 06:40:00 154.9 cm [facility] Body weight 2022-06-15 06:40:00 61.462 kg [facility] BMI 2022-06-15 06:40:00 25.60 kg/m2 [facility] BP Systolic 2023-12-12 10:56:00 149 mm[Hg] Step jaja Lemon BP Diastolic 2023-12-12 10:56:00 94 mm[Hg] Enio phen F Ion Weight Measured 2023-12-12 10:56:00 115.60 pounds Oleg F Ion Height Measured 2023-12-12 10:56:00 62.00 inches Oleg F Ion Body Temperature 2023-12-12 10:56:00 98.00 degrees Oleg F Ion Heart Rate 2023-12-12 10:56:00 84.00 /min Margarita en F Ion Respiratory Rate 2023-12-12 10:56:00 16.00 /min Oleg F Ion BP Systolic 2023-04-12 14:13:00 148 mm[Hg] Step hen F Ion BP Diastolic 2023-04-12 14:13:00 82 mm[Hg] Enio phen F Ion Weight Measured 2023-04-12 14:13:00 121.82 pounds Oleg F Ion Height Measured 2023-04-12 14:13:00 62.00 inches Oleg F Ion Body Temperature 2023-04-12 14:13:00 98.20 degrees Oleg F Ion Heart Rate 2023-04-12 14:13:00 98.00 /min Margarita en F Ion Respiratory Rate 2023-04-12 14:13:00 18.00 /min Oleg F Ion BP Systolic 2022-12-04 12:13:00 113 mm[Hg] Step hen F Ion BP Diastolic 2022-12-04 12:13:00 65 mm[Hg] Enio phen F Ion Weight Measured 2022-12-04 12:13:00 Oleg F Ion Height Measured 2022-12-04 12:13:00 Oleg F Ion Body Temperature 2022-12-04 12:13:00 98.30 degrees Oleg F Ion Heart Rate 2022-12-04 12:13:00 105.00 /min Step hen F Ion Respiratory Rate 2022-12-04 12:13:00 Oleg F Ion BP Systolic 2022-07-23 09:41:00 Step hen F Ion BP Diastolic 2022-07-23 09:41:00 Enio phen F Ion Weight Measured 2022-07-23 09:41:00 Oleg F Ion Height Measured 2022-07-23 09:41:00 Oleg F Ion Body Temperature 2022-07-23 09:41:00 Oleg F Ion Heart Rate 2022-07-23 09:41:00 Margarita en F Ion Respiratory Rate 2022-07-23 09:41:00 Oleg F Ion BP Systolic 2022-04-16 09:23:00 Step hen F Ion BP Diastolic 2022-04-16 09:23:00 Enio phen F Ion Weight Measured 2022-04-16 09:23:00 121.40 pounds Oleg F Ion Height Measured 2022-04-16 09:23:00 62.00 inches Oleg F Ion Body Temperature 2022-04-16 09:23:00 Oleg F Ion Heart Rate 2022-04-16 09:23:00 Margarita en F Ion Respiratory Rate 2022-04-16 09:23:00 Oleg F Ion BP Systolic 2021-11-09 14:58:00 124 mm[Hg] Step hen F Ion BP Diastolic 2021-11-09 14:58:00 77 mm[Hg] Enio phen F Ion Weight Measured 2021-11-09 14:58:00 121.40 pounds Oleg F Ion Height Measured 2021-11-09 14:58:00 62.00 inches Oleg F Ion Body Temperature 2021-11-09 14:58:00 98.20 degrees Oleg F Ion Heart Rate 2021-11-09 14:58:00 105.00 /min Step hen F Ion Respiratory Rate 2021-11-09 14:58:00 18.00 /min Oleg F Ion BP Systolic 2021-10-14 17:30:00 126 mm[Hg] Step hen F Ion BP Diastolic 2021-10-14 17:30:00 74 mm[Hg] Enio phen F Ion Weight Measured 2021-10-14 17:30:00 121.40 pounds Oleg F Ion Height Measured 2021-10-14 17:30:00 62.00 inches Oleg F Ion Body Temperature 2021-10-14 17:30:00 98.30 degrees Oleg F Ion Heart Rate 2021-10-14 17:30:00 104.00 /min Step hen F Ion Respiratory Rate 2021-10-14 17:30:00 16.00 /min Oleg F Ion BP Systolic 2021-02-25 11:36:00 153 mm[Hg] Step hen F Ion BP Diastolic 2021-02-25 11:36:00 79 mm[Hg] Enio phen F Ion Weight Measured 2021-02-25 11:36:00 138.60 pounds Oleg F Ion Height Measured 2021-02-25 11:36:00 62.00 inches Oleg F Ion Body Temperature 2021-02-25 11:36:00 98.20 degrees Oleg F Ion Heart Rate 2021-02-25 11:36:00 115.00 /min Step hen F Ion Respiratory Rate 2021-02-25 11:36:00 18.00 /min Oleg F Ion BP Systolic 2020-12-09 14:39:00 Step hen F Ion BP Diastolic 2020-12-09 14:39:00 Enio phen F Ion Weight Measured 2020-12-09 14:39:00 138.00 pounds Oleg F Ion Height Measured 2020-12-09 14:39:00 62.00 inches Oleg F Ion Body Temperature 2020-12-09 14:39:00 Oleg F Ion Heart Rate 2020-12-09 14:39:00 Margarita en F Ion Respiratory Rate 2020-12-09 14:39:00 Oleg F Ion BP Systolic 2020-12-04 15:40:00 111 mm[Hg] Step hen F Ion BP Diastolic 2020-12-04 15:40:00 77 mm[Hg] Enio phen F Ion Weight Measured 2020-12-04 15:40:00 138.00 pounds Oleg F Ion Height Measured 2020-12-04 15:40:00 62.00 inches Oleg F Ion Body Temperature 2020-12-04 15:40:00 97.90 degrees Oleg F Ion Heart Rate 2020-12-04 15:40:00 101.00 /min Step hen F Ion Respiratory Rate 2020-12-04 15:40:00 18.00 /min Oleg F Ion BP Systolic 2020-11-10 10:06:00 149 mm[Hg] BP Diastolic 2020-11-10 10:06:00 89 mm[Hg] Weight Measured 2020-11-10 10:06:00 137.40 pounds Height Measured 2020-11-10 10:06:00 62.00 inches Body Temperature 2020-11-10 10:06:00 98.60 degrees Heart Rate 2020-11-10 10:06:00 118.00 /min Respiratory Rate 2020-11-10 10:06:00 18.00 /min BP Systolic 2020-09-11 12:25:00 BP Diastolic 2020-09-11 12:25:00 Weight Measured 2020-09-11 12:25:00 130.00 pounds Height Measured 2020-09-11 12:25:00 62.00 inches Body Temperature 2020-09-11 12:25:00 Heart Rate 2020-09-11 12:25:00 Respiratory Rate 2020-09-11 12:25:00 BP Systolic 2020-08-05 09:22:00 95 mm[Hg] BP Diastolic 2020-08-05 09:22:00 61 mm[Hg] Weight Measured 2020-08-05 09:22:00 136.40 pounds Height Measured 2020-08-05 09:22:00 61.51 inches Body Temperature 2020-08-05 09:22:00 98.00 degrees Heart Rate 2020-08-05 09:22:00 105.00 /min Respiratory Rate 2020-08-05 09:22:00 BP Systolic 2020-06-12 09:27:00 BP Diastolic 2020-06-12 09:27:00 Weight Measured 2020-06-12 09:27:00 135.00 pounds Height Measured 2020-06-12 09:27:00 61.51 inches Body Temperature 2020-06-12 09:27:00 Heart Rate 2020-06-12 09:27:00 Respiratory Rate 2020-06-12 09:27:00 BP Systolic 2019-12-13 10:29:00 103 mm[Hg] BP Diastolic 2019-12-13 10:29:00 71 mm[Hg] Weight Measured 2019-12-13 10:29:00 133.00 pounds Height Measured 2019-12-13 10:29:00 61.51 inches Body Temperature 2019-12-13 10:29:00 98.20 degrees Heart Rate 2019-12-13 10:29:00 129.00 /min Respiratory Rate 2019-12-13 10:29:00 18.00 /min BP Systolic 2019-11-24 14:21:00 122 mm[Hg] BP Diastolic 2019-11-24 14:21:00 73 mm[Hg] Weight Measured 2019-11-24 14:21:00 133.40 pounds Height Measured 2019-11-24 14:21:00 61.50 inches Body Temperature 2019-11-24 14:21:00 99.30 degrees Heart Rate 2019-11-24 14:21:00 106.00 /min Respiratory Rate 2019-11-24 14:21:00 BP Systolic 2019-09-25 15:43:00 128 mm[Hg] BP Diastolic 2019-09-25 15:43:00 74 mm[Hg] Weight Measured 2019-09-25 15:43:00 135.80 pounds Height Measured 2019-09-25 15:43:00 61.50 inches Body Temperature 2019-09-25 15:43:00 98.60 degrees Heart Rate 2019-09-25 15:43:00 102.00 /min Respiratory Rate 2019-09-25 15:43:00 18.00 /min Procedures Procedure Date / Time Performed Performing Clinician Source [place] TIME OR (NON-REPORTABLE) 2022-11-02 [facility] [place] [facility] 2022-11-02 16:14[facility] SUBTALAR ARTHRODESIS 2022-11-02 15:03:00 Denise Munson [facility] ASSIGNMENT OF BENEFITS 2022-11-02 12:12:23 Docto r Unassigned, [place] [facility] XR ANKLE 3+ VW RIGHT 2022-09-30 17:41:05 Panchbjaime, V senad [facility] XR FOOT 3+ VW RIGHT 2022-09-30 17:41:05 Panchbjaime, Vi nod [facility] XR ANKLE 3+ VW RIGHT 2022-08-26 19:36:15 Panchbjaime, V senad [facility] XR FOOT 3+ VW RIGHT 2022-08-26 19:36:15 Panchbjaime, Vi nod [facility] XR FOOT 3+ VW RIGHT 2022-07-21 13:56:35 Panchbjaime, Vi nod [facility] XR FOOT 3+ VW RIGHT 2022-07-21 13:56:35 Pancrafy, Kathleen contreras [facility] FL TIME OR (NON-REPORTABLE) 2022-07-21 13:54:00 Louis Alvarado [facility] FL TIME OR (NON-REPORTABLE) 2022-07-21 13:54:00 Louis Alvarado [facility] CALCANEOUS ORIF 2022-07-21 12:02:00 Binta Munson [facility] APPLICATION SPLINT LOWER EXTREMITY 2022-07-21 12:02:00 Binta Munson [facility] ASSIGNMENT OF BENEFITS 2022-07-21 10:32:01 Docto r Unassigned, [place] [facility] CREATINE KINASE 2022-06-15 10:00:00 [facility] 2022-06-15 10:00:00 Kendall Quintero [facility] TROPONIN I 2022-06-15 10:00:00 Kendall Quintero [facility] COMP. METABOLIC PANEL (23398) 2022-06-15 10:00:00 Kendall Quintero [facility] SEDIMENTATION RATE 2022-06-15 10:00:00 Kendall Quintero [facility] CBC WITH DIFF 2022-06-15 10:00:00 Kendall Quintero [facility] PROTHROMBIN TIME / INR 2022-06-15 10:00:00 Robin Quintero [facility] N-TERMINAL PRO-BNP 2022-06-15 10:00:00 Kendall Quintero [facility] CT LUMBAR SPINE WO CONTRAST 2022-06-15 02:35:07 Ayo Huston [facility] CT FOOT RIGHT WO CONTRAST 2022-06-15 02:35:07 Ayo Huston [facility] XR LUMBAR SPINE 2 VW 2022-06-14 23:18:52 Onofre Huston [facility] XR ANKLE 3+ VW BILATERAL 2022-06-14 23:18:52 Betzaida, Apollo Santamaria [facility] XR FOOT 3+ VW BILATERAL 2022-06-14 23:18:52 Betzaida, Lesia Santamaria [facility] XR TIBIA FIBULA 2 VW BILATERAL 2022-06-14 23:18:52 Ayo Huston [facility] TROPONIN I 2022-06-14 22:23:00 Kendall Quintero [facility] BASIC METABOLIC PANEL (NA, K, CL, CO2, GLUCOSE, BUN, CREATININE, CA) 2022-06-14 22:23:00 Ayo Huston [facility] CBC WITH DIFF 2022-06-14 22:23:00 Ayo Huston [facility] Plan of Care Planned Activity Planned Date Details Comments Source Goal Plan of Care Note [code = 98011-1] Goal Plan of Care Note [code = 91409-8] Goal Plan of Care Note [code = 86170-2] Goal Plan of Care Note [code = 84796-2] Goal Plan of Care Note [code = 39335-8] Goal Plan of Care Note [code = 91826-5] Goal Plan of Care Note [code = 70921-9] Goal Plan of Care Note [code = 37425-2] Goal Plan of Care Note [code = 56914-4] Goal Plan of Care Note [code = 22098-7] Goal Plan of Care Note [code = 24986-1] Goal Plan of Care Note [code = 41075-0] Goal Plan of Care Note [code = 50409-5] Goal Plan of Care Note [code = 80673-0] Goal Plan of Care Note [code = 53785-4] Goal Plan of Care Note [code = 20255-8] Goal Plan of Care Note [code = 02280-7] Goal Plan of Care Note [code = 41083-9] Goal Plan of Care Note [code = 60687-7] Goal Plan of Care Note [code = 29651-6] Goal Plan of Care Note [code = 88617-6] Goal Plan of Care Note [code = 21358-8] Goal Plan of Care Note [code = 57106-5] Goal Plan of Care Note [code = 54371-8] Goal Plan of Care Note [code = 33901-0] Goal Plan of Care Note [code = 45303-2] Goal Plan of Care Note [code = 91264-3] Goal Plan of Care Note [code = 42637-5] Goal Plan of Care Note [code = 73724-9] Goal Plan of Care Note [code = 45067-9] Goal Plan of Care Note [code = 47651-5] Goal Plan of Care Note [code = 42442-8] Goal Plan of Care Note [code = 67731-7] Goal Plan of Care Note [code = 86379-0] Goal Plan of Care Note [code = 10443-2] Goal Plan of Care Note [code = 56050-6] Goal Plan of Care Note [code = 42854-7] Goal Plan of Care Note [code = 19911-2] Goal Plan of Care Note [code = 55939-5] Goal Plan of Care Note [code = 01572-4] Goal Plan of Care Note [code = 51699-1] Goal Plan of Care Note [code = 73871-8] Goal Plan of Care Note [code = 48494-5] Goal Plan of Care Note [code = 48739-1] Goal Plan of Care Note [code = 99973-3] Goal Plan of Care Note [code = 55052-3] Goal Plan of Care Note [code = 59404-1] Goal Plan of Care Note [code = 60875-9] Goal Plan of Care Note [code = 97135-4] Goal Plan of Care Note [code = 31762-8] Goal Plan of Care Note [code = 34710-3] Goal Plan of Care Note [code = 11131-1] Goal Plan of Care Note [code = 31878-7] Goal Plan of Care Note [code = 32830-4] Goal Plan of Care Note [code = 99694-7] Goal Plan of Care Note [code = 95202-2] Goal Plan of Care Note [code = 44875-1] Goal Plan of Care Note [code = 83608-9] Goal Plan of Care Note [code = 71787-0] Goal Plan of Care Note [code = 07230-6] Goal Plan of Care Note [code = 68046-7] Goal Plan of Care Note [code = 54427-7] Goal Plan of Care Note [code = 32297-6] Goal Plan of Care Note [code = 39698-3] Goal Plan of Care Note [code = 24001-9] Goal Plan of Care Note [code = 16963-7] Goal Plan of Care Note [code = 82715-2] Goal Plan of Care Note [code = 19569-0] Goal Plan of Care Note [code = 60380-4] Goal Plan of Care Note [code = 91024-5] Goal Plan of Care Note [code = 87203-9] Goal Plan of Care Note [code = 23078-0] Goal Plan of Care Note [code = 07272-8] Goal Plan of Care Note [code = 73490-7] Goal Plan of Care Note [code = 60259-9] Goal Plan of Care Note [code = 19119-9] Goal Plan of Care Note [code = 99802-5] Goal Plan of Care Note [code = 53416-2] Goal Plan of Care Note [code = 62845-1] Goal Plan of Care Note [code = 19038-7] Goal Plan of Care Note [code = 06803-4] Goal Plan of Care Note [code = 19816-9] Goal Plan of Care Note [code = 89041-8] Goal Plan of Care Note [code = 61121-7] Goal Plan of Care Note [code = 57729-1] Goal Plan of Care Note [code = 68129-4] Goal Plan of Care Note [code = 21019-6] Goal Plan of Care Note [code = 71756-1] Goal Plan of Care Note [code = 90066-1] Goal Plan of Care Note [code = 09518-4] Goal Plan of Care Note [code = 94432-3] Goal Plan of Care Note [code = 58221-6] Goal Plan of Care Note [code = 33102-2] Goal Plan of Care Note [code = 33123-8] Goal Plan of Care Note [code = 57466-2] Goal Plan of Care Note [code = 44635-6] Goal Plan of Care Note [code = 73097-1] Goal Plan of Care Note [code = 53897-8] Goal Plan of Care Note [code = 51472-6] Goal Plan of Care Note [code = 91930-3] Goal Plan of Care Note [code = 02471-4] Goal Plan of Care Note [code = 93326-7] Goal Plan of Care Note [code = 22260-6] Goal Plan of Care Note [code = 46307-5] Goal Plan of Care Note [code = 24573-6] Goal Plan of Care Note [code = 11778-8] Goal Plan of Care Note [code = 10967-3] Goal Plan of Care Note [code = 53725-0] Goal Plan of Care Note [code = 70376-4] Goal Plan of Care Note [code = 90335-6] Goal Plan of Care Note [code = 73873-0] Goal Plan of Care Note [code = 57942-1] Goal Plan of Care Note [code = 30303-9] Goal Plan of Care Note [code = 76008-3] Goal Plan of Care Note [code = 02045-1] Goal Plan of Care Note [code = 21140-8] Goal Plan of Care Note [code = 36041-1] Goal Plan of Care Note [code = 77792-2] Goal Plan of Care Note [code = 40066-5] Goal Plan of Care Note [code = 28701-8] Goal Plan of Care Note [code = 42685-8] Goal Plan of Care Note [code = 04375-0] Goal Plan of Care Note [code = 93687-4] Goal Plan of Care Note [code = 26870-1] Goal Plan of Care Note [code = 76787-9] Goal Plan of Care Note [code = 75857-4] Goal Plan of Care Note [code = 29046-8] Goal Plan of Care Note [code = 60421-0] Goal Plan of Care Note [code = 15816-5] Goal Plan of Care Note [code = 67679-0] Goal Plan of Care Note [code = 27491-1] Goal Plan of Care Note [code = 98620-5] Goal Plan of Care Note [code = 90478-6] Goal Plan of Care Note [code = 54259-8] Goal Plan of Care Note [code = 24505-9] Goal Plan of Care Note [code = 96044-8] Goal Plan of Care Note [code = 58486-7] Goal Plan of Care Note [code = 67747-4] Goal Plan of Care Note [code = 55319-8] Goal Plan of Care Note [code = 51651-3] Goal Plan of Care Note [code = 97485-1] Goal Plan of Care Note [code = 92020-3] Goal Plan of Care Note [code = 18684-5] Goal Plan of Care Note [code = 03429-3] Goal Plan of Care Note [code = 15261-0] Goal Plan of Care Note [code = 54477-0] Goal Plan of Care Note [code = 55581-8] Goal Plan of Care Note [code = 96824-2] Goal Plan of Care Note [code = 00565-6] Goal Plan of Care Note [code = 77063-8] Goal Plan of Care Note [code = 41163-3] Goal Plan of Care Note [code = 33503-1] Goal Plan of Care Note [code = 97851-8] Goal Plan of Care Note [code = 11025-4] Goal Plan of Care Note [code = 11674-1] Goal Plan of Care Note [code = 46409-5] Goal Plan of Care Note [code = 97772-1] Goal Plan of Care Note [code = 79353-5] Goal Plan of Care Note [code = 53263-6] Goal Plan of Care Note [code = 51433-8] Goal Plan of Care Note [code = 07589-9] Goal Plan of Care Note [code = 43539-1] Goal Plan of Care Note [code = 25490-1] Goal Plan of Care Note [code = 21066-5] Goal Plan of Care Note [code = 35789-1] Goal Plan of Care Note [code = 79876-7] Goal Plan of Care Note [code = 41999-4] Goal Plan of Care Note [code = 26887-3] Goal Plan of Care Note [code = 11129-0] Goal Plan of Care Note [code = 47196-4] Goal Plan of Care Note [code = 04100-5] Goal Plan of Care Note [code = 10011-4] Goal Plan of Care Note [code = 89606-4] Goal Plan of Care Note [code = 88125-1] Goal Plan of Care Note [code = 71539-4] Goal Plan of Care Note [code = 06334-9] Goal Plan of Care Note [code = 26150-4] Goal Plan of Care Note [code = 03249-3] Goal Plan of Care Note [code = 03682-1] Encounters Start Date/Time End Date/Time Encounter Type Admission Type Attending [facility] Care Facility Care Department Encounter ID Source 2022-06-18 15:41:32 Outpatient 3 [id number] [facility] [id number] [facility] 2022-06-16 09:36:16 Outpatient 3 [id number] [facility] ORJ [id number] [facility] [place] 2022-06-15 20:26:24 Outpatient 3 [id number] [facility] REF [id number] 3 [id number] [facility] [place] 2023-12-12 10:18:42 2023-12-12 10:18:[address] [facility] [id number] Oleg Lemon 2023-12-12 00:00:00 2023-12-12 00:00:[address] [facility] [id number] Oleg Lemon 2022-06-30 00:00:00 2023-08-02 02:09:57 Mobile Device Encounter Louis Alvarado [facility] 1.2.840.114 350.1.13.10 4.2.7.2.686 [id number] [facility] 2023-04-14 14:49:28 2023-04-14 23:59:00 Hospital Encounter Binta Munson [facility] 1.2.840.114 350.1.13.10 4.2.7.2.686 [id number] [facility] 2023-04-14 15:20:00 2023-04-14 16:09:17 Outpatient R BINTA MUNSON [facility] [id number] [facility] 2023-04-14 15:20:00 2023-04-14 16:09:17 Office Visit Binta Munson [facility] 1.2.840.114 350.1.13.10 4.2.7.2.686 [id number] [facility] 2023-04-12 14:21:07 2023-04-12 14:21:[address] [facility] [id number] Oleg Lemon 2023-04-07 16:40:00 2023-04-07 16:40:00 Outpatient R BINTA M[facility]SON [facility] [id number] [facility] 2023-03-31 16:40:00 2023-03-31 16:40:00 Outpatient R BNITA MUNSON [facility] [id number] [facility] 2023-03-17 13:00:00 2023-03-17 13:00:00 Outpatient R OVIDIOBINTA S[facility]AL [facility] [id number] [facility] 2023-02-24 13:39:23 2023-02-24 13:39:23 Outpatient [facility] [id number] Oleg Lemon 2023-01-27 13:29:50 2023-01-27 13:29:50 Outpatient [facility] [id number] Oleg Lemon 2022-12-27 00:00:00 2022-12-27 00:00:00 Patient Secure Msg Doctor Unassigned, [place] [facility] 1.2840.114 350.1.13.10 4.2.7.2.686 [id number] [facility] 2022-12-16 13:46:55 2022-12-16 23:59:00 Outpatient [facility] [id number] [facility] 2022-12-16 13:46:55 2022-12-16 23:59:00 Hospital Encounter OvidioBinta sandoval [facility] 1.2.840.114 350.1.13.10 4.2.7.2.686 [id number] [facility] 2022-12-16 14:20:00 2022-12-16 14:54:03 Office Visit Jeimy Binta [facility] 1.2.840.114 350.1.13.10 4.2.7.2.686 [id number] [facility] 2022-12-16 00:00:00 2022-12-16 00:00:00 Letter (Out) Ovidiojaime Binta [facility] 1.2.840.114 350.1.13.10 4.2.7.2.686 [id number] [facility] 2022-12-07 13:53:49 2022-12-07 13:53:[address] [facility] [id number] Oleg Lemon 2022-12-04 12:09:39 2022-12-04 12:09:[address] [facility] [id number] Oleg Lemon 2022-11-18 13:20:00 2022-11-18 14:19:51 Outpatient R [facility] [id number] [facility] 2022-11-18 13:20:00 2022-11-18 14:19:51 Office Visit Jeimy [facility] 1..840.114 350.1.13.10 4.2.7.2.686 [id number] [facility] 2022-11-18 13:20:00 2022-11-18 13:20:00 Outpatient R B[facility]TA [facility] [id number] [facility] 2022-11-10 11:52:05 2022-11-10 11:52:[address] [facility] [id number] Oleg Lemon 2022-11-02 07:13:00 2022-11-02 12:23:00 Outpatient R BINTA MUNSON [facility] [id number] [facility] 2022-11-02 07:13:00 2022-11-02 12:23:00 Hospital Encounter Binta Munson [facility] 1..840.114 350.1.13.10 4.2.7.2.686 [id number] [facility] 2022-11-02 08:53:00 2022-11-02 10:06:00 Surgery Ninoskajaime [facility] 1.2.840.114 350.1.13.10 4.2.7.2.686 [id number] [facility] 2022-11-02 00:00:00 2022-11-02 00:00:00 Orders Only Doctor Unassigned, [place] [facility] 1.2840.114 350.1.13.10 4.2.7.2.686 [id number] [facility] 2022-10-12 15:17:18 2022-10-12 15:17:[address] [facility] [id number] Oleg Lemon 2022-09-30 12:27:35 2022-09-30 23:59:00 Hospital Encounter Panchbhavi, Binta [facility] 1.2840.114 350.1.13.10 4.2.7.2.686 [id number] [facility] 2022-09-30 13:40:00 2022-09-30 13:50:51 Outpatient R PANCHBHAVI, [facility] [id number] [facility] 2022-09-30 13:40:00 2022-09-30 13:50:51 Office Visit Panchbhavi, Binta [facility] 1.2840.114 350.1.13.10 4.2.7.2.686 [id number] [facility] 2022-09-16 09:59:19 2022-09-16 09:59:[address] [facility] [id number] Oleg Lemon 2022-08-26 14:15:45 2022-08-26 23:59:00 Outpatient R PANCHBHAVI, [facility] [id number] [facility] 2022-08-26 14:15:45 2022-08-26 23:59:00 Hospital Encounter Panchbhavi, Binta [facility] 1.2.840.114 350.1.13.10 4.2.7.2.686 [id number] [facility] 2022-08-26 14:30:00 2022-08-26 15:06:35 Office Visit Panchbhavi, Binta [facility] 1.2.840.114 350.1.13.10 4.2.7.2.686 [id number] [facility] 2022-08-05 13:50:00 2022-08-05 14:00:00 Office Visit Binta Munson [facility] 1.2.840.114 350.1.13.10 4.2.7.2.686 [id number] [facility] 2022-08-05 13:50:00 2022-08-05 13:50:00 Outpatient R BINTA M[facility]SON [facility] [id number] [facility] 2022-07-21 05:34:00 2022-07-21 10:59:00 Outpatient R JEIMY BINTA [facility] [id number] [facility] 2022-07-21 05:34:00 2022-07-21 10:59:00 Hospital Encounter [facility] 1.2840.114 350.1.13.10 4.2.7.2.686 [id number] [facility] 2022-07-21 07:00:00 2022-07-21 09:02:00 Surgery [facility] 1.2.840.114 350.1.13.10 4.2.7.2.686 [id number] [facility] 2022-07-21 00:00:00 2022-07-21 00:00:00 Orders Only Doctor Unassigned, [place] [facility] 1.2.840.114 350.1.13.10 4.2.7.2.686 [id number] [facility] 2022-06-29 00:00:00 2022-06-29 00:00:00 Telephone Jeimy Binta [facility] 1.2840.114 350.1.13.10 4.2.7.2.686 [id number] [facility] 2022-06-29 00:00:00 2022-06-29 00:00:00 Telephone [facility] [place] [facility] 1.2.840.114 350.1.13.10 4.2.7.2.686 [id number] [facility] 2022-06-25 00:00:00 2022-06-25 00:00:00 Telephone [facility] [place] [facility] 1.2.840.114 350.1.13.10 4.2.7.2.686 [id number] [facility] 2022-06-24 00:00:00 2022-06-24 00:00:00 Patient Outreach Jeimy Larson [facility] [place] [facility] 1.2840.114 350.1.13.10 4.2.7.2.686 [id number] [facility] 2022-06-21 15:40:00 2022-06-21 15:40:24 Outpatient R JEIMY [facility] [id number] [facility] 2022-06-21 15:40:00 2022-06-21 15:40:24 Office Visit [facility] 1.2.840.114 350.1.13.10 4.2.7.2.686 [id number] [facility] 2022-06-16 00:00:00 2022-06-16 00:00:00 Transition of Care Heike Almanza 1.2.840.114 350.1.13.10 4.2.7.2.686 [id number] [facility] 2022-06-14 16:49:00 2022-06-15 17:38:00 Outpatient X MARQUIS LIZ [facility] [id number] [facility] 2022-06-14 16:49:00 2022-06-15 17:38:00 Hospital Encounter Betzaida, Ayo Quintero, Marquis Lazaro [facility] 1.2.840.114 350.1.13.10 4.2.7.2.686 [id number] [facility] 2022-03-03 17:37:03 2022-03-03 17:37:[address] [facility] [id number] Oleg Lemon 2022-02-17 00:00:00 2022-02-17 00:00:00 Outpatient Visit [id number]- [id number]-417 [id number] [id number]-0534j4 030f13 2021-11-09 00:00:00 2021-11-09 00:00:00 Outpatient Visit [id number]- 3eba-455b -00p7-o1k [id number] eba-455b-9 8x6-u1y7un 878c7d 2021-10-14 00:00:00 2021-10-14 00:00:00 Outpatient Visit 05hz09pa- [id number] -bed6-1a3 [id number] 3e1-4yb4-r [id number] 0db94f 2021-08-14 00:00:00 2021-08-14 00:00:00 Outpatient Visit [id number]- 80db-488e -9e7a-0u8 [id number] 0db-488e-9 s4o-3u7b12 f510da 2020-01-15 00:00:00 2020-01-15 00:00:00 Outpatient [facility] [id number] [facility] 2019-12-18 10:54:29 2019-12-18 11:09:29 Dental Office Manager Visit 2, Adc Lab [facility] [id number] 350.1.13.10 4.2.7.2.686 [id number] 2019-12-18 10:00:00 2019-12-18 10:00:00 Outpatient [facility] [id number] [facility] 2019-12-18 00:00:00 2019-12-18 00:00:00 Orders Only Doctor Unassigned, [place] [id number] 350.1.13.10 4.2.7.2.686 [id number] 2019-11-28 00:00:00 2019-11-28 00:00:00 Letter (Out) Neurology [facility] [id number] 350.1.13.10 4.2.7.2.686 [id number] 2019-11-24 00:00:00 2019-11-24 00:00:00 Orders Only Doctor Unassigned, [place] [id number] 350.1.13.10 4.2.7.2.686 [id number] Results Test Description Test Time Test Comments Results Result Co mments Source CULTURE, [id number] 10:59:31SPECIMEN NUMBER: [id number] CULTURE, URINE SPECIMEN NUMBER: [id number] SPECIMEN COMMENT: URINE SOURCE: URINE REPORT STATUS: FINAL FINAL REPORT: 04/14/2023 10-50,000 CFU/ML UROGENITAL [place] PRESENT NO CO MMON PATHOGENSPAP TEST, THINPREP, [id number] 00:00:00* Test Item Value Reference Range Interpretation Comme nts SOURCE: (test code = 8001) Cervical/Endocervical SLIDES: (test code = 8011) 1 LMP: (test code = 8021) SEE NOTE SPECIMEN ADEQUACY: (test code = 15733) (NOTE) INTERPRETATION: (test code = 27628) NILM/NO EPITH. ABNORMALITY;SEE BELOW POULTRY BONER: (test code = 8101) EDILIA Gunderson (ASCP) QC TECHNOLOGIST: (test code = 8111) EDILIA Nelson(ASCP)IAC LOCATION: (test code = 96581) (NOTE) CPT: (test code = 8140) (NOTE) Oleg Story, [id number] 00:00:00* Test Item Value Reference Range Interpretation Comme [facility] CULTURE, URINE (test code = 91748) SPECIMEN NUMBER: [id number] Oleg LemonHPV HIGH RISK WITH GENOTYPE, [id number] 17:38:22* Test Item Value Reference Range Interpretation Comme nts HPV HIGH RISK INTERP (test code = 13950) NEGATIVE NEGATIVE HPV 16 (test code = 98118) NEGATIVE HPV 18 (test code = 83251) NEGATIVE HPV, HR, OTHER GENOTYPES (test code = 93191) NEGATIVE Testing methodol ogy is real-time PCR utilizing hydrolysis probes with the [employer] Gen 4800 system. The test individually detects genotypes 16 and 18, as well as the other 12 high risk types (31,33,35,39,45,51,52,56 ,58,59,66,68). The expected result is negative. A negative result does not rule out the presence of HPV not included in the genotype set, a low level of infection or specimen sampling error. UNLESS OTHERWISE INDICATED, ALL TESTING PERFORMED AT [facility] [address] [place] [address] NUCLEAR PROCESS ENGINEER: CECIL LOCKWOOD M.D. CLIA NUMBER [id number] [place]. [id number] VAGINAL PATHOGENS DNA [id number] 13:16:07* Test Item Value Reference Range Interpretation Comme [facility] BLANCA SPECIES (test code = 52062) NEGATIVE NEGATIVE G. VAGINALIS (test code = 38997) POSITIVE NEGATIVE A T. VAGINALIS (test code = 71224) NEGATIVE NEGATIVE Note: The BD [facility] ir VPIII Microbial Identification Testis a DNA probe test intended for use in the detectionand identification of Blanca species, Gardnerellavaginalis and Trichomonas vaginalis nucleic acid. UNLESS OTHERWISE INDICATED, ALL TESTING PERFORMED AT [facility] [address] [place] [address] NUCLEAR PROCESS ENGINEER: CECIL LOCKWOOD M.D. CLIA NUMBER [id number] [place]. [id number] HPV HIGH RISK WITH GENOTYPE, [id number] 00:00:00* Test Item Value Reference Range Interpretation Comme nts HPV HIGH RISK INTERP (test c ode = 49194) NEGATIVE HPV 16 (test code = 09875) NEGATIVE HPV 18 (test code = 02534) NEGATIVE HPV, HR, OTHER GENOTYPES (te st code = 67883) NEGATIVE PDFE (test code = PDFReport) PDF Oleg F AustinVAGINAL PATHOGENS DNA [id number] 00:00:00* Test Item Value Reference Range Interpretation Comme nts BLANCA SPECIES (test code = ) NEGATIVE G. VAGINALIS (test code = ) POSITIVE T. VAGINALIS (test code = ) NEGATIVE Oleg F AustinCOMPREHENSIVE METABOLIC [id number] 23:54:57* Test Item Value Reference Range Interpretation Comme nts GLUCOSE (test code = 2216) 104 MG/DL 70-99 H BUN (test code = 2207) 11 MG/DL 8-23 CREATININE (test code = 2213) 0.73 MG/DL 0.60-1.30 eGFR (2020 CKD-EPI) (test co de = 46088) 91 ML/MIN/1.73 >60 CALC BUN/CREAT (test code = 5) 15 RATIO 6-28 SODIUM (test code = 2231) 138 MEQ/L 133-146 POTASSIUM (test code = 2228) 4.1 MEQ/L 3.5-5.4 CHLORIDE (test code = 2215) 101 MEQ/L 95-107 CARBON DIOXIDE (test code = 2206) 22 MEQ/L 19-31 CALCIUM (test code = 2209) 9.5 MG/DL 8.5-10.5 PROTEIN, TOTAL (test code = 222) 6.6 G/DL 6.1-8.3 ALBUMIN (test code = 2201) 4.4 G/DL 3.5-5.2 CALC GLOBULIN (test code = 2240) 2.2 G/DL 1.9-3.7 CALC A/G RATIO (test code = 2234) 2.0 RATIO 1.0-2.6 BILIRUBIN, TOTAL (test code = 7) 0.2 MG/DL <=1.2 ALKALINE PHOSPHATASE (test code = 4) 98 U/L 40-140 AST (test code = 2218) 18 U/L 9-40 ALT (test code = 2219) 17 U/L 5-40 LIPID [id number] 23:54:57* Test Item Value Reference Range Interpretation Comme nts CHOLESTEROL (test code = 2210) 203 MG/DL <200 H TRIGLYCERIDES (test code = 2232) 52 MG/DL <150 HDL CHOLESTEROL (test code = 2220) 74 MG/DL >39 CALC LDL CHOL (test code = 2237) 116 MG/DL <100 H NOTE: CALCULATED LDL IS BASED ON ROSE MARIE-DELGADO METHOD WHICHINCLUDES ADJUSTABLE TRIGLYCERIDE:VLDL CHOLESTEROL RATIO.THIS FACTOR VARIES BY MEASURED TRIGLYCERIDE AND NON-HDLCHOLESTEROL CONCENTRATIONS WITH INCREASED CALCULATED LDL SEENIN HIGHER TRIGLYCERIDE OR LOWER NON-HDL SPECIMENS. FOR MOREINFORMATION, SEE CLIENT ANNOUNCEMENT AT [email or web address] [email or web address] RATIO LDL/HDL (test code = 2238) 1.57 RATIO <3.22 VITAMIN D, 25 [id number] 23:08:30* Test Item Value Reference Range Interpretation Comme [facility] VITAMIN D, 25 OH (test code = 4958) 28 NG/ML SEE BELOW L EFFECTIVE 10/2022, PLEASE NOTE NEW METHODOLOGY IS ELECTROCHEMILUMINESCENCE BINDING ASSAY. NOTE: 25-HYDROXYVITAMIN D ASSAY INCLUDES 25-HYDROXYVITAMIN D2 AND D3. INTERPRETIVE RANGES PEDIATRIC (<17 YEARS) . . . . . . . . . . . NG/ML 20-100ADULT: INSUFFICIENT . . . . . . . . . . . . . . NG/ML <20 SUBOPTIMAL . . . . . . . . . . . . . . . NG/ML 20-29 OPTIMAL . . . . . . . . . . . . . . . . . NG/ML 30-100 UNLESS OTHERWISE INDICATED, ALL TESTING PERFORMED AT [facility] [address] [place] [address] NUCLEAR PROCESS ENGINEER: CECIL LOCKWOOD M.D. CLIA NUMBER [id number] [facility] [place]. [id number] TSH, THIRD [id number] 23:08:17* Test Item Value Reference Range Interpretation Comme [facility] TSH, THIRD GENERATION (test code = 2821) 2.020 UIU/ML 0.400-4.100 CBC W/AUTO DIFF WITH [id number] 03:05:13* Test Item Value Reference Range Interpretation Comme nts WBC (test code = 1001) 8.3 K/UL 3.5-11.0 RBC (test code = 1002) 4.12 M/UL 3.80-5.40 HEMOGLOBIN (test code = 1003) 13.3 G/DL 11.5-15.5 HEMATOCRIT (test code = 1004) 40.3 % 34.0-45.0 MCV (test code = 1005) 97.8 fL 80.0-99.0 MCH (test code = 1006) 32.3 PG 25.0-33.0 MCHC (test code = 1007) 33.0 G/DL 31.0-36.0 RDW (test code = 1038) 12.5 % 11.5-15.0 NEUTROPHILS (test code = 1008) 58.5 % LYMPHOCYTES (test code = 1010) 31.8 % MONOCYTES (test code = 1011) 7.4 % EOSINOPHILS (test code = 1012) 1.4 % BASOPHILS (test code = 1013) 0.7 % IMMATURE GRANULOCYTES (test code = 1036) 0.2 % NUCLEATED RBCS (test code = 1065) 0.0 /100 WBC'S See_Comment [Automated [employer] ge] The system which generated this result transmitted reference range: 0.0. The reference range was not used to interpret this result as normal/abnormal. PLATELET COUNT (test code = 1015) 269 K/UL 130-400 ABSOLUTE NEUTROPHILS (test code = 1066) 4.87 K/UL 1.50-7.50 ABSOLUTE LYMPHOCYTES (test code = 1067) 2.65 K/UL 1.00-4.00 ABSOLUTE MONOCYTES (test code = 1068) 0.62 K/UL 0.20-1.00 ABSOLUTE EOSINOPHILS (test code = 1040) 0.12 K/UL 0.00-0.50 ABSOLUTE BASOPHILS (test code = 1069) 0.06 K/UL 0.00-0.20 ABS IMMATURE GRANULOCYTES (test code = 1020) 0.02 K/UL 0.00-0.10 ABS NUCLEATED RBCS (test code = 11664) 0.00 K/UL 0.00-0.11 HEMOGLOBIN [id number] 03:04:50* Test Item Value Reference Range Interpretation Comme [facility] HEMOGLOBIN A1c (test code = 44427) 5.9 % 4.2-5.6 H [employer] GUIDELINES FOR HGB A1C: PREDIABETES/INCREASED RISK . . . . . . . 5.7-6.4% DIAGNOSIS OF DIABETES . . . . . . . . . >=6.5% WITH CONFIRMATION OR APPROPRIATE SYMPTOMS NOTE: ASSAY MAY BE AFFECTED BY HEMOGLOBINOPATHIES (SICKLE CELL ANEMIA, S-C DISEASE, OTHERS) OR ARTIFICIALLY LOWERED BY DECREASED RED CELL SURVIVAL (HEMOLYTIC ANEMIAS, BLOOD LOSS, ETC.). CONSIDER ALTERNATE TESTING OR LABORATORY CONSULTATION. COMPREHENSIVE METABOLIC [id number] 00:00:00* Test Item Value Reference Range Interpretation Comme nts GLUCOSE (test code = 7) 104 MG/DL BUN (test code = 2208) 11 MG/DL CREATININE (test code = 2214) 0.73 MG/DL eGFR (2020 CKD-EPI) (test co de = 39030) 91 ML/MIN/1.73 CALC BUN/CREAT (test code = 2235) 15 RATIO SODIUM (test code = 2231) 138 MEQ/L POTASSIUM (test code = 2228) 4.1 MEQ/L CHLORIDE (test code = 2215) 101 MEQ/L CARBON DIOXIDE (test code = 2206) 22 MEQ/L CALCIUM (test code = 2209) 9.5 MG/DL PROTEIN, TOTAL (test code = 2229) 6.6 G/DL ALBUMIN (test code = 2201) 4.4 G/DL CALC GLOBULIN (test code = 2240) 2.2 G/DL CALC A/G RATIO (test code = 2234) 2.0 RATIO BILIRUBIN, TOTAL (test code = 2207) 0.2 MG/DL ALKALINE PHOSPHATASE (test code = 2204) 98 U/L AST (test code = 2218) 18 U/L ALT (test code = 2219) 17 U/L Oleg LemonHEMOGLOBIN [id number] 00:00:00* Test Item Value Reference Range Interpretation Comme [facility] HEMOGLOBIN A1c (test code = 78850) 5.9 % Oleg LemonLIPID [id number] 00:00:00* Test Item Value Reference Range Interpretation Comme nts CHOLESTEROL (test code = 2210) 203 MG/DL TRIGLYCERIDES (test code = 2232) 52 MG/DL HDL CHOLESTEROL (test code = 2220) 74 MG/DL CALC LDL CHOL (test code = 2237) 116 MG/DL RISK RATIO LDL/HDL (test cod e = 2238) 1.57 RATIO Oleg Robbins, THIRD [id number] 00:00:00* Test Item Value Reference Range Interpretation Comme nts TSH, THIRD GENERATION (test code = 2821) 2.020 UIU/ML Oleg LemonVITAMIN D, 25 [id number] 00:00:00* Test Item Value Reference Range Interpretation Comme nts VITAMIN D, 25 OH (test code = 4958) 28 NG/ML Oleg LemonCBC W/AUTO [id number] 00:00:00* Test Item Value Reference Range Interpretation Comme nts WBC (test code = 1001) 8.3 K/UL RBC (test code = 1002) 4.12 M/UL HEMOGLOBIN (test code = 1003) 13.3 G/DL HEMATOCRIT (test code = 1004) 40.3 % MCV (test code = 1005) 97.8 fL MCH (test code = 1006) 32.3 PG MCHC (test code = 1007) 33.0 G/DL RDW (test code = 1038) 12.5 % NEUTROPHILS (test code = 1008) 58.5 % LYMPHOCYTES (test code = 1010) 31.8 % MONOCYTES (test code = 1011) 7.4 % EOSINOPHILS (test code = 1012) 1.4 % BASOPHILS (test code = 1013) 0.7 % IMMATURE GRANULOCYTES (test code = 1036) 0.2 % NUCLEATED RBCS (test code = 1065) 0.0 /100WBC'S PLATELET COUNT (test code = 1015) 269 K/UL ABSOLUTE NEUTROPHILS (test c ode = 1066) 4.87 K/UL ABSOLUTE LYMPHOCYTES (test c ode = 1067) 2.65 K/UL ABSOLUTE MONOCYTES (test cod e = 1068) 0.62 K/UL ABSOLUTE EOSINOPHILS (test c ode = 1040) 0.12 K/UL ABSOLUTE BASOPHILS (test cod e = 1069) 0.06 K/UL ABS IMMATURE GRANULOCYTES (t est code = 1020) 0.02 K/UL ABS NUCLEATED RBCS (test cod e = 32991) 0.00 K/UL Oleg F AustinGC AND CHLAMYDIA, AMPLIFIED, [id number] 00:00:00* Test Item Value Reference Range Interpretation Comme nts GONORRHEA, NAAT (test code = 11309) NEGATIVE CHLAMYDIA, NAAT (test code = 32351) NEGATIVE HIV AB/AG COMBO RFLX [id number] 00:00:00* Test Item Value Reference Range Interpretation Comme nts HIV 1/2 4TH GEN, RFLX CONF ( test code = 3514) NON-REACTIVE [id number] 00:00:00* Test Item Value Reference Range Interpretation Comme nts RPR RESULT (test code = 3501) NON-REACTIVE RPR TITER (test code = 3500) NOT INDIC. TITER VAGINAL PATHOGENS DNA [id number] 00:00:00* Test Item Value Reference Range Interpretation Comme nts BLANCA SPECIES (test code = 08127) NEGATIVE G. VAGINALIS (test code = 39407) POSITIVE T. VAGINALIS (test code = 95031) NEGATIVE GC AND CHLAMYDIA, AMPLIFIED, [id number] 00:00:00* Test Item Value Reference Range Interpretation Comme nts GONORRHEA, NAAT (test code = 26631) NEGATIVE CHLAMYDIA, NAAT (test code = 28107) NEGATIVE HIV AB/AG COMBO RFLX [id number] 00:00:00* Test Item Value Reference Range Interpretation Comme nts HIV 1/2 4TH GEN, RFLX CONF ( test code = 3514) NON-REACTIVE [id number] 00:00:00* Test Item Value Reference Range Interpretation Comme nts RPR RESULT (test code = 3501) NON-REACTIVE RPR TITER (test code = 3500) NOT INDIC. TITER VAGINAL PATHOGENS DNA [id number] 00:00:00* Test Item Value Reference Range Interpretation Comme nts BLANCA SPECIES (test code = 23042) NEGATIVE G. VAGINALIS (test code = 83979) POSITIVE T. VAGINALIS (test code = 41050) NEGATIVE GC AND CHLAMYDIA, AMPLIFIED, [id number] 00:00:00* Test Item Value Reference Range Interpretation Comme nts GONORRHEA, NAAT (test code = 79673) NEGATIVE CHLAMYDIA, NAAT (test code = 43182) NEGATIVE HIV AB/AG COMBO RFLX [id number] 00:00:00* Test Item Value Reference Range Interpretation Comme nts HIV 1/2 4TH GEN, RFLX CONF ( test code = 3514) NON-REACTIVE [id number] 00:00:00* Test Item Value Reference Range Interpretation Comme nts RPR RESULT (test code = 3501) NON-REACTIVE RPR TITER (test code = 3500) NOT INDIC. TITER VAGINAL PATHOGENS DNA [id number] 00:00:00* Test Item Value Reference Range Interpretation Comme nts BLANCA SPECIES (test code = ) NEGATIVE G. VAGINALIS (test code = 74336) POSITIVE T. VAGINALIS (test code = 96310) NEGATIVE GC AND CHLAMYDIA, AMPLIFIED, [id number] 00:00:00* Test Item Value Reference Range Interpretation Comme nts GONORRHEA, NAAT (test code = 48156) NEGATIVE CHLAMYDIA, NAAT (test code = 27829) NEGATIVE HIV AB/AG COMBO RFLX [id number] 00:00:00* Test Item Value Reference Range Interpretation Comme nts HIV 1/2 4TH GEN, RFLX CONF ( test code = 3514) NON-REACTIVE [id number] 00:00:00* Test Item Value Reference Range Interpretation Comme nts RPR RESULT (test code = 3501) NON-REACTIVE RPR TITER (test code = 3500) NOT INDIC. TITER VAGINAL PATHOGENS DNA [id number] 00:00:00* Test Item Value Reference Range Interpretation Comme nts BLANCA SPECIES (test code = ) NEGATIVE G. VAGINALIS (test code = 11341) POSITIVE T. VAGINALIS (test code = 24370) NEGATIVE HIV AB/AG COMBO RFLX [id number] 00:00:00* Test Item Value Reference Range Interpretation Comme nts HIV 1/2 4TH GEN, RFLX CONF ( test code = 3514) NON-REACTIVE Oleg F [id number] 00:00:00* Test Item Value Reference Range Interpretation Comme nts RPR RESULT (test code = 3501) NON-REACTIVE RPR TITER (test code = 3500) NOT INDIC. TITER Oleg F AustinVAGINAL PATHOGENS DNA [id number] 00:00:00* Test Item Value Reference Range Interpretation Comme nts BLANCA SPECIES (test code = ) NEGATIVE G. VAGINALIS (test code = ) POSITIVE T. VAGINALIS (test code = ) NEGATIVE Oleg LemonGC AND CHLAMYDIA, AMPLIFIED, [id number] 00:00:00* Test Item Value Reference Range Interpretation Comme nts GONORRHEA, NAAT (test code = 86054) NEGATIVE CHLAMYDIA, NAAT (test code = 19055) NEGATIVE Oleg LemonCOMPREHENSIVE METABOLIC [id number] 00:00:00* Test Item Value Reference Range Interpretation Comme nts GLUCOSE (test code = 2217) 127 MG/DL BUN (test code = 2208) 10 MG/DL CREATININE (test code = 2214) 0.77 MG/DL eGFR AMER. (test cod e = 90613) 95 ML/MIN/1.73 eGFR NON- AMER. (test code = 23374) 82 ML/MIN/1.73 CALC BUN/CREAT (test code = 2235) 13 RATIO SODIUM (test code = 2231) 141 MEQ/L POTASSIUM (test code = 2228) 4.6 MEQ/L CHLORIDE (test code = 2215) 105 MEQ/L CARBON DIOXIDE (test code = 2206) 22 MEQ/L CALCIUM (test code = 2209) 10.1 MG/DL PROTEIN, TOTAL (test code = 2229) 8.0 G/DL ALBUMIN (test code = 2201) 4.7 G/DL CALC GLOBULIN (test code = 2240) 3.3 G/DL CALC A/G RATIO (test code = 2234) 1.4 RATIO BILIRUBIN, TOTAL (test code = 2207) 0.3 MG/DL ALKALINE PHOSPHATASE (test code = 2204) 128 U/L AST (test code = 2218) 19 U/L ALT (test code = 2219) 13 U/L VITAMIN D, 25 [id number] 00:00:00* Test Item Value Reference Range Interpretation Comme nts VITAMIN D, 25 OH (test code = 4958) 27 NG/ML VITAMIN [id number] 00:00:00* Test Item Value Reference Range Interpretation Comme nts VITAMIN B-12 (test code = 2840) 828 PG/ML COMPREHENSIVE METABOLIC [id number] 00:00:00* Test Item Value Reference Range Interpretation Comme nts GLUCOSE (test code = 2217) 127 MG/DL BUN (test code = 2208) 10 MG/DL CREATININE (test code = 2214) 0.77 MG/DL eGFR AMER. (test cod e = 29397) 95 ML/MIN/1.73 eGFR NON- AMER. (test code = 22845) 82 ML/MIN/1.73 CALC BUN/CREAT (test code = 2235) 13 RATIO SODIUM (test code = 2231) 141 MEQ/L POTASSIUM (test code = 2228) 4.6 MEQ/L CHLORIDE (test code = 2215) 105 MEQ/L CARBON DIOXIDE (test code = 2206) 22 MEQ/L CALCIUM (test code = 2209) 10.1 MG/DL PROTEIN, TOTAL (test code = 2229) 8.0 G/DL ALBUMIN (test code = 2201) 4.7 G/DL CALC GLOBULIN (test code = 2240) 3.3 G/DL CALC A/G RATIO (test code = 2234) 1.4 RATIO BILIRUBIN, TOTAL (test code = 2207) 0.3 MG/DL ALKALINE PHOSPHATASE (test code = 2204) 128 U/L AST (test code = 2218) 19 U/L ALT (test code = 2219) 13 U/L VITAMIN D, 25 [id number] 00:00:00* Test Item Value Reference Range Interpretation Comme [facility] VITAMIN D, 25 OH (test code = 4958) 27 NG/ML VITAMIN [id number] 00:00:00* Test Item Value Reference Range Interpretation Comme [facility] VITAMIN B-12 (test code = 2840) 828 PG/ML COMPREHENSIVE METABOLIC [id number] 00:00:00* Test Item Value Reference Range Interpretation Comme nts GLUCOSE (test code = 2217) 127 MG/DL BUN (test code = 2208) 10 MG/DL CREATININE (test code = 2214) 0.77 MG/DL eGFR AMER. (test cod e = 86480) 95 ML/MIN/1.73 eGFR NON- AMER. (test code = 21143) 82 ML/MIN/1.73 CALC BUN/CREAT (test code = 2235) 13 RATIO SODIUM (test code = 2231) 141 MEQ/L POTASSIUM (test code = 2228) 4.6 MEQ/L CHLORIDE (test code = 2215) 105 MEQ/L CARBON DIOXIDE (test code = 2206) 22 MEQ/L CALCIUM (test code = 2209) 10.1 MG/DL PROTEIN, TOTAL (test code = 2229) 8.0 G/DL ALBUMIN (test code = 2201) 4.7 G/DL CALC GLOBULIN (test code = 2240) 3.3 G/DL CALC A/G RATIO (test code = 2234) 1.4 RATIO BILIRUBIN, TOTAL (test code = 2207) 0.3 MG/DL ALKALINE PHOSPHATASE (test code = 2204) 128 U/L AST (test code = 2218) 19 U/L ALT (test code = 2219) 13 U/L VITAMIN D, 25 [id number] 00:00:00* Test Item Value Reference Range Interpretation Comme nts VITAMIN D, 25 OH (test code = 4958) 27 NG/ML VITAMIN [id number] 00:00:00* Test Item Value Reference Range Interpretation Comme nts VITAMIN B-12 (test code = 2840) 828 PG/ML COMPREHENSIVE METABOLIC [id number] 00:00:00* Test Item Value Reference Range Interpretation Comme nts GLUCOSE (test code = 2217) 127 MG/DL BUN (test code = 2208) 10 MG/DL CREATININE (test code = 2214) 0.77 MG/DL eGFR AMER. (test cod e = 28548) 95 ML/MIN/1.73 eGFR NON- AMER. (test code = 83016) 82 ML/MIN/1.73 CALC BUN/CREAT (test code = 2235) 13 RATIO SODIUM (test code = 2231) 141 MEQ/L POTASSIUM (test code = 2228) 4.6 MEQ/L CHLORIDE (test code = 2215) 105 MEQ/L CARBON DIOXIDE (test code = 2206) 22 MEQ/L CALCIUM (test code = 2209) 10.1 MG/DL PROTEIN, TOTAL (test code = 2229) 8.0 G/DL ALBUMIN (test code = 2201) 4.7 G/DL CALC GLOBULIN (test code = 2240) 3.3 G/DL CALC A/G RATIO (test code = 2234) 1.4 RATIO BILIRUBIN, TOTAL (test code = 2207) 0.3 MG/DL ALKALINE PHOSPHATASE (test code = 2204) 128 U/L AST (test code = 2218) 19 U/L ALT (test code = 2219) 13 U/L VITAMIN D, 25 [id number] 00:00:00* Test Item Value Reference Range Interpretation Comme nts VITAMIN D, 25 OH (test code = 4958) 27 NG/ML VITAMIN [id number] 00:00:00* Test Item Value Reference Range Interpretation Comme nts VITAMIN B-12 (test code = 2840) 828 PG/ML VITAMIN D, 25 [id number] 00:00:00* Test Item Value Reference Range Interpretation Comme nts VITAMIN D, 25 OH (test code = 4958) 27 NG/ML Oleg LemonVITAMIN [id number] 00:00:00* Test Item Value Reference Range Interpretation Comme nts VITAMIN B-12 (test code = 2840) 828 PG/ML Oleg LemonCOMPREHENSIVE METABOLIC [id number] 00:00:00* Test Item Value Reference Range Interpretation Comme nts GLUCOSE (test code = 2217) 127 MG/DL BUN (test code = 2208) 10 MG/DL CREATININE (test code = 2214) 0.77 MG/DL eGFR AMER. (test cod e = 97733) 95 ML/MIN/1.73 eGFR NON- AMER. (test code = 56659) 82 ML/MIN/1.73 CALC BUN/CREAT (test code = 2235) 13 RATIO SODIUM (test code = 2231) 141 MEQ/L POTASSIUM (test code = 2228) 4.6 MEQ/L CHLORIDE (test code = 2215) 105 MEQ/L CARBON DIOXIDE (test code = 2206) 22 MEQ/L CALCIUM (test code = 2209) 10.1 MG/DL PROTEIN, TOTAL (test code = 2229) 8.0 G/DL ALBUMIN (test code = 2201) 4.7 G/DL CALC GLOBULIN (test code = 2240) 3.3 G/DL CALC A/G RATIO (test code = 2234) 1.4 RATIO BILIRUBIN, TOTAL (test code = 2207) 0.3 MG/DL ALKALINE PHOSPHATASE (test code = 2204) 128 U/L AST (test code = 2218) 19 U/L ALT (test code = 2219) 13 U/L Oleg Flores AustinHEMOGLOBIN [id number] 00:00:00* Test Item Value Reference Range Interpretation Comme nts HEMOGLOBIN A1c (test code = 88448) 5.9 % HEMOGLOBIN [id number] 00:00:00* Test Item Value Reference Range Interpretation Comme nts HEMOGLOBIN A1c (test code = 48987) 5.9 % HEMOGLOBIN [id number] 00:00:00* Test Item Value Reference Range Interpretation Comme nts HEMOGLOBIN A1c (test code = 64137) 5.9 % HEMOGLOBIN [id number] 00:00:00* Test Item Value Reference Range Interpretation Comme nts HEMOGLOBIN A1c (test code = 20889) 5.9 % HEMOGLOBIN [id number] 00:00:00* Test Item Value Reference Range Interpretation Comme nts HEMOGLOBIN A1c (test code = 25972) 5.9 % Oleg Flores AustinPAP TEST, THINPREP, [id number] 00:00:00* Test Item Value Reference Range Interpretation Comme nts SOURCE: (test code = 8001) Cervical/Endocervical SLIDES: (test code = 8011) 2 LMP: (test code = 8021) SEE NOTE SPECIMEN ADEQUACY: (test code = 18216) (NOTE) INTERPRETATION: (test code = 73269) NILM/NO EPITH. ABNORMALITY;SEE BELOW OTHER COMMENTS: (test code = 8081) (NOTE) POULTRY BONER: (test code = 8101) EDILIA Ceballos([facility] QC TECHNOLOGIST: (test code = 8111) Ken VangLOVELACE REG[facility], [place]([facility] LOCATION: (test code = 57270) (NOTE) CPT: (test code = 8140) (NOTE) PAP TEST, THINPREP, [id number] 00:00:00* Test Item Value Reference Range Interpretation Comme nts SOURCE: (test code = 8001) Cervical/Endocervical SLIDES: (test code = 8011) 2 LMP: (test code = 8021) SEE NOTE SPECIMEN ADEQUACY: (test code = 11596) (NOTE) INTERPRETATION: (test code = 27998) NILM/NO EPITH. ABNORMALITY;SEE BELOW OTHER COMMENTS: (test code = 8081) (NOTE) POULTRY BONER: (test code = 8101) EDILIA Ceballos(ASCP)IAC QC TECHNOLOGIST: (test code = 8111) JUSTICE Pineda(ASCP)[facility] LOCATION: (test code = 47164) (NOTE) CPT: (test code = 8140) (NOTE) PAP TEST, THINPREP, [id number] 00:00:00* Test Item Value Reference Range Interpretation Comme nts SOURCE: (test code = 8001) Cervical/Endocervical SLIDES: (test code = 8011) 2 LMP: (test code = 8021) SEE NOTE SPECIMEN ADEQUACY: (test code = 39575) (NOTE) INTERPRETATION: (test code = 47252) NILM/NO EPITH. ABNORMALITY;SEE BELOW OTHER COMMENTS: (test code = 8081) (NOTE) POULTRY BONER: (test code = 8101) EDILIA Ceballos(ASCP)IAC QC TECHNOLOGIST: (test code = 8111) JUSTICE Pineda(ASCP)[facility] LOCATION: (test code = 32979) (NOTE) CPT: (test code = 8140) (NOTE) PAP TEST, THINPREP, [id number] 00:00:00* Test Item Value Reference Range Interpretation Comme nts SOURCE: (test code = 8001) Cervical/Endocervical SLIDES: (test code = 8011) 2 LMP: (test code = 8021) SEE NOTE SPECIMEN ADEQUACY: (test code = 32546) (NOTE) INTERPRETATION: (test code = 65604) NILM/NO EPITH. ABNORMALITY;SEE BELOW OTHER COMMENTS: (test code = 8081) (NOTE) POULTRY BONER: (test code = 8101) EDILIA Ceballos(ASCP)IAC QC TECHNOLOGIST: (test code = 8111) JUSTICE Pineda(ASCP)IAC LOCATION: (test code = 53432) (NOTE) CPT: (test code = 8140) (NOTE) PAP TEST, THINPREP, [id number] 00:00:00* Test Item Value Reference Range Interpretation Comme nts SOURCE: (test code = 8001) Cervical/Endocervical SLIDES: (test code = 8011) 2 LMP: (test code = 8021) SEE NOTE SPECIMEN ADEQUACY: (test code = 28852) (NOTE) INTERPRETATION: (test code = 54602) NILM/NO EPITH. ABNORMALITY;SEE BELOW OTHER COMMENTS: (test code = 8081) (NOTE) POULTRY BONER: (test code = 8101) Nickie LowryCT(ASCP)IAC QC TECHNOLOGIST: (test code = 8111) JUSTICE Pineda(ASCP)IAC LOCATION: (test code = 35098) (NOTE) CPT: (test code = 8140) (NOTE) Oleg Sandra IonHPV HIGH RISK WITH GENOTYPE, [id number] 00:00:00* Test Item Value Reference Range Interpretation Comme nts HPV HIGH RISK INTERP (test c ode = 18370) NEGATIVE HPV 16 (test code = 51392) NEGATIVE HPV 18 (test code = 48219) NEGATIVE HPV, HR, OTHER GENOTYPES (te st code = 10219) NEGATIVE HPV HIGH RISK WITH GENOTYPE, [id number] 00:00:00* Test Item Value Reference Range Interpretation Comme nts HPV HIGH RISK INTERP (test c ode = 36488) NEGATIVE HPV 16 (test code = 08011) NEGATIVE HPV 18 (test code = 34971) NEGATIVE HPV, HR, OTHER GENOTYPES (te st code = 88647) NEGATIVE HPV HIGH RISK WITH GENOTYPE, [id number] 00:00:00* Test Item Value Reference Range Interpretation Comme nts HPV HIGH RISK INTERP (test c ode = 78009) NEGATIVE HPV 16 (test code = 58694) NEGATIVE HPV 18 (test code = 54345) NEGATIVE HPV, HR, OTHER GENOTYPES (te st code = 83643) NEGATIVE HPV HIGH RISK WITH GENOTYPE, [id number] 00:00:00* Test Item Value Reference Range Interpretation Comme nts HPV HIGH RISK INTERP (test c ode = 47821) NEGATIVE HPV 16 (test code = 23000) NEGATIVE HPV 18 (test code = 53590) NEGATIVE HPV, HR, OTHER GENOTYPES (te st code = 55588) NEGATIVE HPV HIGH RISK WITH GENOTYPE, [id number] 00:00:00* Test Item Value Reference Range Interpretation Comme nts HPV HIGH RISK INTERP (test c ode = 74306) NEGATIVE HPV 16 (test code = 53824) NEGATIVE HPV 18 (test code = 95271) NEGATIVE HPV, HR, OTHER GENOTYPES (te st code = 74294) NEGATIVE Oleg Flores IonGC AND CHLAMYDIA, AMPLIFIED, [id number] 00:00:00* Test Item Value Reference Range Interpretation Comme nts GONORRHEA, TMA (test code = 52535) NEGATIVE CHLAMYDIA, TMA (test code = 10783) NEGATIVE GC AND CHLAMYDIA AMPLIFIED, [id number] 00:00:00* Test Item Value Reference Range Interpretation Comme nts GONORRHEA, TMA (test code = 90310) NEGATIVE CHLAMYDIA, TMA (test code = 08522) NEGATIVE [id number] 00:00:00* Test Item Value Reference Range Interpretation Comme nts RPR RESULT (test code = 3501) NON-REACTIVE RPR TITER (test code = 3500) NOT INDIC. TITER HIV AB/AG COMBO RFLX [id number] 00:00:00* Test Item Value Reference Range Interpretation Comme nts HIV 1/2 4TH GEN, RFLX CONF ( test code = 3514) NON-REACTIVE VAGINAL PATHOGENS DNA [id number] 00:00:00* Test Item Value Reference Range Interpretation Comme nts BLANCA SPECIES (test code = 96603) NEGATIVE G. VAGINALIS (test code = 50670) NEGATIVE T. VAGINALIS (test code = 45114) NEGATIVE GC AND CHLAMYDIA, AMPLIFIED, [id number] 00:00:00* Test Item Value Reference Range Interpretation Comme nts GONORRHEA, TMA (test code = 70126) NEGATIVE CHLAMYDIA, TMA (test code = 98397) NEGATIVE GC AND CHLAMYDIA AMPLIFIED, [id number] 00:00:00* Test Item Value Reference Range Interpretation Comme nts GONORRHEA, TMA (test code = 74397) NEGATIVE CHLAMYDIA, TMA (test code = 18331) NEGATIVE [id number] 00:00:00* Test Item Value Reference Range Interpretation Comme nts RPR RESULT (test code = 3501) NON-REACTIVE RPR TITER (test code = 3500) NOT INDIC. TITER HIV AB/AG COMBO RFLX [id number] 00:00:00* Test Item Value Reference Range Interpretation Comme nts HIV 1/2 4TH GEN, RFLX CONF ( test code = 3514) NON-REACTIVE VAGINAL PATHOGENS DNA [id number] 00:00:00* Test Item Value Reference Range Interpretation Comme nts BLANCA SPECIES (test code = ) NEGATIVE G. VAGINALIS (test code = 63924) NEGATIVE T. VAGINALIS (test code = 89922) NEGATIVE GC AND CHLAMYDIA AMPLIFIED, [id number] 00:00:00* Test Item Value Reference Range Interpretation Comme nts GONORRHEA, TMA (test code = 66441) NEGATIVE CHLAMYDIA, TMA (test code = 16292) NEGATIVE GC AND CHLAMYDIA, AMPLIFIED, [id number] 00:00:00* Test Item Value Reference Range Interpretation Comme nts GONORRHEA, TMA (test code = 60612) NEGATIVE CHLAMYDIA, TMA (test code = 22321) NEGATIVE [id number] 00:00:00* Test Item Value Reference Range Interpretation Comme nts RPR RESULT (test code = 3501) NON-REACTIVE RPR TITER (test code = 3500) NOT INDIC. TITER HIV AB/AG COMBO RFLX [id number] 00:00:00* Test Item Value Reference Range Interpretation Comme nts HIV 1/2 4TH GEN, RFLX CONF ( test code = 3514) NON-REACTIVE VAGINAL PATHOGENS DNA [id number] 00:00:00* Test Item Value Reference Range Interpretation Comme nts BLANCA SPECIES (test code = ) NEGATIVE G. VAGINALIS (test code = 91991) NEGATIVE T. VAGINALIS (test code = 45522) NEGATIVE GC AND CHLAMYDIA AMPLIFIED, [id number] 00:00:00* Test Item Value Reference Range Interpretation Comme nts GONORRHEA, TMA (test code = 03585) NEGATIVE CHLAMYDIA, TMA (test code = 15871) NEGATIVE GC AND CHLAMYDIA, AMPLIFIED, [id number] 00:00:00* Test Item Value Reference Range Interpretation Comme nts GONORRHEA, TMA (test code = 79989) NEGATIVE CHLAMYDIA, TMA (test code = 57462) NEGATIVE [id number] 00:00:00* Test Item Value Reference Range Interpretation Comme nts RPR RESULT (test code = 3501) NON-REACTIVE RPR TITER (test code = 3500) NOT INDIC. TITER HIV AB/AG COMBO RFLX [id number] 00:00:00* Test Item Value Reference Range Interpretation Comme nts HIV 1/2 4TH GEN, RFLX CONF ( test code = 3514) NON-REACTIVE VAGINAL PATHOGENS DNA [id number] 00:00:00* Test Item Value Reference Range Interpretation Comme nts BLANCA SPECIES (test code = ) NEGATIVE G. VAGINALIS (test code = 57991) NEGATIVE T. VAGINALIS (test code = 66503) NEGATIVE [id number] 00:00:00* Test Item Value Reference Range Interpretation Comme nts RPR RESULT (test code = 3501) NON-REACTIVE RPR TITER (test code = 3500) NOT INDIC. TITER Oleg LemonHIV AB/AG COMBO RFLX [id number] 00:00:00* Test Item Value Reference Range Interpretation Comme nts HIV 1/2 4TH GEN, RFLX CONF ( test code = 3514) NON-REACTIVE Oleg LemonVAGINAL PATHOGENS DNA [id number] 00:00:00* Test Item Value Reference Range Interpretation Comme nts BLANCA SPECIES (test code = ) NEGATIVE G. VAGINALIS (test code = 43617) NEGATIVE T. VAGINALIS (test code = 36247) NEGATIVE Oleg LemonGC AND CHLAMYDIA AMPLIFIED, [id number] 00:00:00* Test Item Value Reference Range Interpretation Comme nts GONORRHEA, TMA (test code = 72305) NEGATIVE CHLAMYDIA, TMA (test code = 45410) NEGATIVE Oleg LemonGC AND CHLAMYDIA, AMPLIFIED, [id number] 00:00:00* Test Item Value Reference Range Interpretation Comme nts GONORRHEA, TMA (test code = 99375) NEGATIVE CHLAMYDIA, TMA (test code = 17638) NEGATIVE Oleg LemonCBC W/AUTO [id number] 00:00:00* Test Item Value Reference Range Interpretation Comme nts WBC (test code = 1001) 6.7 K/UL RBC (test code = 1002) 4.58 M/UL HEMOGLOBIN (test code = 1003) 15.1 G/DL HEMATOCRIT (test code = 1004) 43.2 % MCV (test code = 1005) 94.3 fL MCH (test code = 1006) 33.0 PG MCHC (test code = 1007) 35.0 G/DL RDW (test code = 1038) 12.4 % NEUTROPHILS (test code = 1008) 48.2 % LYMPHOCYTES (test code = 1010) 39.4 % MONOCYTES (test code = 1011) 9.8 % EOSINOPHILS (test code = 1012) 1.5 % BASOPHILS (test code = 1013) 1.1 % PLATELET COUNT (test code = 1015) 305 K/UL COMPREHENSIVE METABOLIC [id number] 00:00:00* Test Item Value Reference Range Interpretation Comme nts GLUCOSE (test code = 2217) 92 MG/DL BUN (test code = 2208) 5 MG/DL CREATININE (test code = 2214) 0.69 MG/DL eGFR AMER. (test cod e = 72414) 108 ML/MIN/1.73 eGFR NON- AMER. (test code = 10355) 93 ML/MIN/1.73 CALC BUN/CREAT (test code = 2235) 7 RATIO SODIUM (test code = 2231) 142 MEQ/L POTASSIUM (test code = 2228) 4.5 MEQ/L CHLORIDE (test code = 2215) 103 MEQ/L CARBON DIOXIDE (test code = 2206) 25 MEQ/L CALCIUM (test code = 2209) 9.6 MG/DL PROTEIN, TOTAL (test code = 2229) 7.0 G/DL ALBUMIN (test code = 2201) 4.3 G/DL CALC GLOBULIN (test code = 2240) 2.7 G/DL CALC A/G RATIO (test code = 2234) 1.6 RATIO BILIRUBIN, TOTAL (test code = 2207) 0.4 MG/DL ALKALINE PHOSPHATASE (test code = 2204) 101 U/L AST (test code = 2218) 38 U/L ALT (test code = 2219) 45 U/L LIPID [id number] 00:00:00* Test Item Value Reference Range Interpretation Comme nts CHOLESTEROL (test code = 2210) 203 MG/DL TRIGLYCERIDES (test code = 2232) 79 MG/DL HDL CHOLESTEROL (test code = 2220) 55 MG/DL CALC LDL CHOL (test code = 2237) 132 MG/DL RISK RATIO LDL/HDL (test cod e = 2238) 2.40 RATIO HEMOGLOBIN [id number] 00:00:00* Test Item Value Reference Range Interpretation Comme nts HEMOGLOBIN A1c (test code = 06548) 6.1 % [id number] 00:00:00* Test Item Value Reference Range Interpretation Comme nts TSH, THIRD GENERATION (test code = 2821) 1.660 UIU/ML CBC W/AUTO [id number] 00:00:00* Test Item Value Reference Range Interpretation Comme nts WBC (test code = 1001) 6.7 K/UL RBC (test code = 1002) 4.58 M/UL HEMOGLOBIN (test code = 1003) 15.1 G/DL HEMATOCRIT (test code = 1004) 43.2 % MCV (test code = 1005) 94.3 fL MCH (test code = 1006) 33.0 PG MCHC (test code = 1007) 35.0 G/DL RDW (test code = 1038) 12.4 % NEUTROPHILS (test code = 1008) 48.2 % LYMPHOCYTES (test code = 1010) 39.4 % MONOCYTES (test code = 1011) 9.8 % EOSINOPHILS (test code = 1012) 1.5 % BASOPHILS (test code = 1013) 1.1 % PLATELET COUNT (test code = 1015) 305 K/UL COMPREHENSIVE METABOLIC [id number] 00:00:00* Test Item Value Reference Range Interpretation Comme nts GLUCOSE (test code = 2217) 92 MG/DL BUN (test code = 2208) 5 MG/DL CREATININE (test code = 2214) 0.69 MG/DL eGFR AMER. (test cod e = 90401) 108 ML/MIN/1.73 eGFR NON- AMER. (test code = 09108) 93 ML/MIN/1.73 CALC BUN/CREAT (test code = 2235) 7 RATIO SODIUM (test code = 2231) 142 MEQ/L POTASSIUM (test code = 2228) 4.5 MEQ/L CHLORIDE (test code = 2215) 103 MEQ/L CARBON DIOXIDE (test code = 2206) 25 MEQ/L CALCIUM (test code = 2209) 9.6 MG/DL PROTEIN, TOTAL (test code = 2229) 7.0 G/DL ALBUMIN (test code = 2201) 4.3 G/DL CALC GLOBULIN (test code = 2240) 2.7 G/DL CALC A/G RATIO (test code = 2234) 1.6 RATIO BILIRUBIN, TOTAL (test code = 2207) 0.4 MG/DL ALKALINE PHOSPHATASE (test code = 2204) 101 U/L AST (test code = 2218) 38 U/L ALT (test code = 2219) 45 U/L LIPID [id number] 00:00:00* Test Item Value Reference Range Interpretation Comme nts CHOLESTEROL (test code = 2210) 203 MG/DL TRIGLYCERIDES (test code = 2232) 79 MG/DL HDL CHOLESTEROL (test code = 2220) 55 MG/DL CALC LDL CHOL (test code = 2237) 132 MG/DL RISK RATIO LDL/HDL (test cod e = 2238) 2.40 RATIO HEMOGLOBIN [id number] 00:00:00* Test Item Value Reference Range Interpretation Comme nts HEMOGLOBIN A1c (test code = 76882) 6.1 % [id number] 00:00:00* Test Item Value Reference Range Interpretation Comme nts TSH, THIRD GENERATION (test code = 2821) 1.660 UIU/ML CBC W/AUTO [id number] 00:00:00* Test Item Value Reference Range Interpretation Comme nts WBC (test code = 1001) 6.7 K/UL RBC (test code = 1002) 4.58 M/UL HEMOGLOBIN (test code = 1003) 15.1 G/DL HEMATOCRIT (test code = 1004) 43.2 % MCV (test code = 1005) 94.3 fL MCH (test code = 1006) 33.0 PG MCHC (test code = 1007) 35.0 G/DL RDW (test code = 1038) 12.4 % NEUTROPHILS (test code = 1008) 48.2 % LYMPHOCYTES (test code = 1010) 39.4 % MONOCYTES (test code = 1011) 9.8 % EOSINOPHILS (test code = 1012) 1.5 % BASOPHILS (test code = 1013) 1.1 % PLATELET COUNT (test code = 1015) 305 K/UL COMPREHENSIVE METABOLIC [id number] 00:00:00* Test Item Value Reference Range Interpretation Comme nts GLUCOSE (test code = 2217) 92 MG/DL BUN (test code = 2208) 5 MG/DL CREATININE (test code = 2214) 0.69 MG/DL eGFR AMER. (test cod e = 40040) 108 ML/MIN/1.73 eGFR NON- AMER. (test code = 59200) 93 ML/MIN/1.73 CALC BUN/CREAT (test code = 2235) 7 RATIO SODIUM (test code = 2231) 142 MEQ/L POTASSIUM (test code = 2228) 4.5 MEQ/L CHLORIDE (test code = 2215) 103 MEQ/L CARBON DIOXIDE (test code = 2206) 25 MEQ/L CALCIUM (test code = 2209) 9.6 MG/DL PROTEIN, TOTAL (test code = 2229) 7.0 G/DL ALBUMIN (test code = 2201) 4.3 G/DL CALC GLOBULIN (test code = 2240) 2.7 G/DL CALC A/G RATIO (test code = 2234) 1.6 RATIO BILIRUBIN, TOTAL (test code = 2207) 0.4 MG/DL ALKALINE PHOSPHATASE (test code = 2204) 101 U/L AST (test code = 221) 38 U/L ALT (test code = 2219) 45 U/L LIPID [id number] 00:00:00* Test Item Value Reference Range Interpretation Comme nts CHOLESTEROL (test code = 2210) 203 MG/DL TRIGLYCERIDES (test code = 2232) 79 MG/DL HDL CHOLESTEROL (test code = 2220) 55 MG/DL CALC LDL CHOL (test code = 2237) 132 MG/DL RISK RATIO LDL/HDL (test cod e = 2238) 2.40 RATIO HEMOGLOBIN [id number] 00:00:00* Test Item Value Reference Range Interpretation Comme nts HEMOGLOBIN A1c (test code = 24782) 6.1 % [id number] 00:00:00* Test Item Value Reference Range Interpretation Comme [facility] TSH, THIRD GENERATION (test code = 2821) 1.660 UIU/ML CBC W/AUTO [id number] 00:00:00* Test Item Value Reference Range Interpretation Comme nts WBC (test code = 1001) 6.7 K/UL RBC (test code = 1002) 4.58 M/UL HEMOGLOBIN (test code = 1003) 15.1 G/DL HEMATOCRIT (test code = 1004) 43.2 % MCV (test code = 1005) 94.3 fL MCH (test code = 1006) 33.0 PG MCHC (test code = 1007) 35.0 G/DL RDW (test code = 1038) 12.4 % NEUTROPHILS (test code = 1008) 48.2 % LYMPHOCYTES (test code = 1010) 39.4 % MONOCYTES (test code = 1011) 9.8 % EOSINOPHILS (test code = 1012) 1.5 % BASOPHILS (test code = 1013) 1.1 % PLATELET COUNT (test code = 1015) 305 K/UL COMPREHENSIVE METABOLIC [id number] 00:00:00* Test Item Value Reference Range Interpretation Comme nts GLUCOSE (test code = 2217) 92 MG/DL BUN (test code = 2208) 5 MG/DL CREATININE (test code = 2214) 0.69 MG/DL eGFR AMER. (test cod e = 72616) 108 ML/MIN/1.73 eGFR NON- AMER. (test code = 66009) 93 ML/MIN/1.73 CALC BUN/CREAT (test code = 2235) 7 RATIO SODIUM (test code = 2231) 142 MEQ/L POTASSIUM (test code = 2228) 4.5 MEQ/L CHLORIDE (test code = 2215) 103 MEQ/L CARBON DIOXIDE (test code = 2206) 25 MEQ/L CALCIUM (test code = 2209) 9.6 MG/DL PROTEIN, TOTAL (test code = 2229) 7.0 G/DL ALBUMIN (test code = 2201) 4.3 G/DL CALC GLOBULIN (test code = 2240) 2.7 G/DL CALC A/G RATIO (test code = 2234) 1.6 RATIO BILIRUBIN, TOTAL (test code = 2207) 0.4 MG/DL ALKALINE PHOSPHATASE (test code = 2204) 101 U/L AST (test code = 2218) 38 U/L ALT (test code = 2219) 45 U/L LIPID [id number] 00:00:00* Test Item Value Reference Range Interpretation Comme nts CHOLESTEROL (test code = 2210) 203 MG/DL TRIGLYCERIDES (test code = 2232) 79 MG/DL HDL CHOLESTEROL (test code = 2220) 55 MG/DL CALC LDL CHOL (test code = 2237) 132 MG/DL RISK RATIO LDL/HDL (test cod e = 2238) 2.40 RATIO HEMOGLOBIN [id number] 00:00:00* Test Item Value Reference Range Interpretation Comme nts HEMOGLOBIN A1c (test code = 43473) 6.1 % [id number] 00:00:00* Test Item Value Reference Range Interpretation Comme nts TSH, THIRD GENERATION (test code = 2821) 1.660 UIU/ML COMPREHENSIVE METABOLIC [id number] 00:00:00* Test Item Value Reference Range Interpretation Comme nts GLUCOSE (test code = 2217) 92 MG/DL BUN (test code = 2208) 5 MG/DL CREATININE (test code = 2214) 0.69 MG/DL eGFR AMER. (test cod e = 18785) 108 ML/MIN/1.73 eGFR NON- AMER. (test code = 49083) 93 ML/MIN/1.73 CALC BUN/CREAT (test code = 2235) 7 RATIO SODIUM (test code = 2231) 142 MEQ/L POTASSIUM (test code = 2228) 4.5 MEQ/L CHLORIDE (test code = 2215) 103 MEQ/L CARBON DIOXIDE (test code = 2206) 25 MEQ/L CALCIUM (test code = 2209) 9.6 MG/DL PROTEIN, TOTAL (test code = 2229) 7.0 G/DL ALBUMIN (test code = 2201) 4.3 G/DL CALC GLOBULIN (test code = 2240) 2.7 G/DL CALC A/G RATIO (test code = 2234) 1.6 RATIO BILIRUBIN, TOTAL (test code = 2207) 0.4 MG/DL ALKALINE PHOSPHATASE (test code = 2204) 101 U/L AST (test code = 2218) 38 U/L ALT (test code = 2219) 45 U/L Oleg LemonLIPID [id number] 00:00:00* Test Item Value Reference Range Interpretation Comme nts CHOLESTEROL (test code = 2210) 203 MG/DL TRIGLYCERIDES (test code = 2232) 79 MG/DL HDL CHOLESTEROL (test code = 2220) 55 MG/DL CALC LDL CHOL (test code = 2237) 132 MG/DL RISK RATIO LDL/HDL (test cod e = 2238) 2.40 RATIO Oleg LemonHEMOGLOBIN [id number] 00:00:00* Test Item Value Reference Range Interpretation Comme nts HEMOGLOBIN A1c (test code = 50899) 6.1 % Oleg [id number] 00:00:00* Test Item Value Reference Range Interpretation Comme nts TSH, THIRD GENERATION (test code = 2821) 1.660 UIU/ML Oleg LemonCBC W/AUTO [id number] 00:00:00* Test Item Value Reference Range Interpretation Comme nts WBC (test code = 1001) 6.7 K/UL RBC (test code = 1002) 4.58 M/UL HEMOGLOBIN (test code = 1003) 15.1 G/DL HEMATOCRIT (test code = 1004) 43.2 % MCV (test code = 1005) 94.3 fL MCH (test code = 1006) 33.0 PG MCHC (test code = 1007) 35.0 G/DL RDW (test code = 1038) 12.4 % NEUTROPHILS (test code = 1008) 48.2 % LYMPHOCYTES (test code = 1010) 39.4 % MONOCYTES (test code = 1011) 9.8 % EOSINOPHILS (test code = 1012) 1.5 % BASOPHILS (test code = 1013) 1.1 % PLATELET COUNT (test code = 1015) 305 K/UL Oleg LemonCOMPREHENSIVE METABOLIC [id number] 00:00:00* Test Item Value Reference Range Interpretation Comme nts GLUCOSE (test code = 2217) 103 MG/DL BUN (test code = 2208) 12 MG/DL CREATININE (test code = 2214) 0.66 MG/DL eGFR AMER. (test cod e = 17488) 110 ML/MIN/1.73 eGFR NON- AMER. (test code = 91241) 95 ML/MIN/1.73 CALC BUN/CREAT (test code = 2235) 18 RATIO SODIUM (test code = 2231) 143 MEQ/L POTASSIUM (test code = 2228) 4.8 MEQ/L CHLORIDE (test code = 2215) 106 MEQ/L CARBON DIOXIDE (test code = 2206) 25 MEQ/L CALCIUM (test code = 2209) 9.1 MG/DL PROTEIN, TOTAL (test code = 2229) 7.0 G/DL ALBUMIN (test code = 2201) 4.3 G/DL CALC GLOBULIN (test code = 2240) 2.7 G/DL CALC A/G RATIO (test code = 2234) 1.6 RATIO BILIRUBIN, TOTAL (test code = 2207) <0.2 MG/DL ALKALINE PHOSPHATASE (test code = 2204) 108 U/L AST (test code = 2218) 34 U/L ALT (test code = 2219) 44 U/L LIPID [id number] 00:00:00* Test Item Value Reference Range Interpretation Comme nts CHOLESTEROL (test code = 2210) 186 MG/DL TRIGLYCERIDES (test code = 2232) 112 MG/DL HDL CHOLESTEROL (test code = 2220) 62 MG/DL CALC LDL CHOL (test code = 2237) 102 MG/DL RISK RATIO LDL/HDL (test cod e = 2238) 1.64 RATIO CBC W/AUTO [id number] 00:00:00* Test Item Value Reference Range Interpretation Comme nts WBC (test code = 1001) 7.3 K/UL RBC (test code = 1002) 4.53 M/UL HEMOGLOBIN (test code = 1003) 14.8 G/DL HEMATOCRIT (test code = 1004) 42.2 % MCV (test code = 1005) 93.2 fL MCH (test code = 1006) 32.7 PG MCHC (test code = 1007) 35.1 G/DL RDW (test code = 1038) 11.6 % NEUTROPHILS (test code = 1008) 45.2 % LYMPHOCYTES (test code = 1010) 44.7 % MONOCYTES (test code = 1011) 8.1 % EOSINOPHILS (test code = 1012) 1.2 % BASOPHILS (test code = 1013) 0.8 % PLATELET COUNT (test code = 1015) 309 K/UL HEMOGLOBIN [id number] 00:00:00* Test Item Value Reference Range Interpretation Comme nts HEMOGLOBIN A1c (test code = 71870) 5.8 % [id number] 00:00:00* Test Item Value Reference Range Interpretation Comme nts TSH, THIRD GENERATION (test code = 2821) 1.600 UIU/ML COMPREHENSIVE METABOLIC [id number] 00:00:00* Test Item Value Reference Range Interpretation Comme nts GLUCOSE (test code = 2217) 103 MG/DL BUN (test code = 2208) 12 MG/DL CREATININE (test code = 2214) 0.66 MG/DL eGFR AMER. (test cod e = 67339) 110 ML/MIN/1.73 eGFR NON- AMER. (test code = 10470) 95 ML/MIN/1.73 CALC BUN/CREAT (test code = 2235) 18 RATIO SODIUM (test code = 2231) 143 MEQ/L POTASSIUM (test code = 2228) 4.8 MEQ/L CHLORIDE (test code = 2215) 106 MEQ/L CARBON DIOXIDE (test code = 2206) 25 MEQ/L CALCIUM (test code = 2209) 9.1 MG/DL PROTEIN, TOTAL (test code = 2229) 7.0 G/DL ALBUMIN (test code = 2201) 4.3 G/DL CALC GLOBULIN (test code = 2240) 2.7 G/DL CALC A/G RATIO (test code = 2234) 1.6 RATIO BILIRUBIN, TOTAL (test code = 2207) <0.2 MG/DL ALKALINE PHOSPHATASE (test code = 2204) 108 U/L AST (test code = 2218) 34 U/L ALT (test code = 2219) 44 U/L LIPID [id number] 00:00:00* Test Item Value Reference Range Interpretation Comme nts CHOLESTEROL (test code = 2210) 186 MG/DL TRIGLYCERIDES (test code = 2232) 112 MG/DL HDL CHOLESTEROL (test code = 2220) 62 MG/DL CALC LDL CHOL (test code = 2237) 102 MG/DL RISK RATIO LDL/HDL (test cod e = 2238) 1.64 RATIO CBC W/AUTO [id number] 00:00:00* Test Item Value Reference Range Interpretation Comme nts WBC (test code = 1001) 7.3 K/UL RBC (test code = 1002) 4.53 M/UL HEMOGLOBIN (test code = 1003) 14.8 G/DL HEMATOCRIT (test code = 1004) 42.2 % MCV (test code = 1005) 93.2 fL MCH (test code = 1006) 32.7 PG MCHC (test code = 1007) 35.1 G/DL RDW (test code = 1038) 11.6 % NEUTROPHILS (test code = 1008) 45.2 % LYMPHOCYTES (test code = 1010) 44.7 % MONOCYTES (test code = 1011) 8.1 % EOSINOPHILS (test code = 1012) 1.2 % BASOPHILS (test code = 1013) 0.8 % PLATELET COUNT (test code = 1015) 309 K/UL HEMOGLOBIN [id number] 00:00:00* Test Item Value Reference Range Interpretation Comme nts HEMOGLOBIN A1c (test code = 86567) 5.8 % [id number] 00:00:00* Test Item Value Reference Range Interpretation Comme nts TSH, THIRD GENERATION (test code = 2821) 1.600 UIU/ML COMPREHENSIVE METABOLIC [id number] 00:00:00* Test Item Value Reference Range Interpretation Comme nts GLUCOSE (test code = 2217) 103 MG/DL BUN (test code = 2208) 12 MG/DL CREATININE (test code = 2214) 0.66 MG/DL eGFR AMER. (test cod e = 97055) 110 ML/MIN/1.73 eGFR NON- AMER. (test code = 38642) 95 ML/MIN/1.73 CALC BUN/CREAT (test code = 2235) 18 RATIO SODIUM (test code = 2231) 143 MEQ/L POTASSIUM (test code = 2228) 4.8 MEQ/L CHLORIDE (test code = 2215) 106 MEQ/L CARBON DIOXIDE (test code = 2206) 25 MEQ/L CALCIUM (test code = 2209) 9.1 MG/DL PROTEIN, TOTAL (test code = 2229) 7.0 G/DL ALBUMIN (test code = 2201) 4.3 G/DL CALC GLOBULIN (test code = 2240) 2.7 G/DL CALC A/G RATIO (test code = 2234) 1.6 RATIO BILIRUBIN, TOTAL (test code = 2207) <0.2 MG/DL ALKALINE PHOSPHATASE (test code = 2204) 108 U/L AST (test code = 2218) 34 U/L ALT (test code = 2219) 44 U/L LIPID [id number] 00:00:00* Test Item Value Reference Range Interpretation Comme nts CHOLESTEROL (test code = 2210) 186 MG/DL TRIGLYCERIDES (test code = 2232) 112 MG/DL HDL CHOLESTEROL (test code = 2220) 62 MG/DL CALC LDL CHOL (test code = 2237) 102 MG/DL RISK RATIO LDL/HDL (test cod e = 2238) 1.64 RATIO CBC W/AUTO [id number] 00:00:00* Test Item Value Reference Range Interpretation Comme nts WBC (test code = 1001) 7.3 K/UL RBC (test code = 1002) 4.53 M/UL HEMOGLOBIN (test code = 1003) 14.8 G/DL HEMATOCRIT (test code = 1004) 42.2 % MCV (test code = 1005) 93.2 fL MCH (test code = 1006) 32.7 PG MCHC (test code = 1007) 35.1 G/DL RDW (test code = 1038) 11.6 % NEUTROPHILS (test code = 1008) 45.2 % LYMPHOCYTES (test code = 1010) 44.7 % MONOCYTES (test code = 1011) 8.1 % EOSINOPHILS (test code = 1012) 1.2 % BASOPHILS (test code = 1013) 0.8 % PLATELET COUNT (test code = 1015) 309 K/UL HEMOGLOBIN [id number] 00:00:00* Test Item Value Reference Range Interpretation Comme nts HEMOGLOBIN A1c (test code = 58572) 5.8 % [id number] 00:00:00* Test Item Value Reference Range Interpretation Comme nts TSH, THIRD GENERATION (test code = 2821) 1.600 UIU/ML COMPREHENSIVE METABOLIC [id number] 00:00:00* Test Item Value Reference Range Interpretation Comme nts GLUCOSE (test code = 2217) 103 MG/DL BUN (test code = 2208) 12 MG/DL CREATININE (test code = 2214) 0.66 MG/DL eGFR AMER. (test cod e = 69581) 110 ML/MIN/1.73 eGFR NON- AMER. (test code = 12224) 95 ML/MIN/1.73 CALC BUN/CREAT (test code = 2235) 18 RATIO SODIUM (test code = 2231) 143 MEQ/L POTASSIUM (test code = 2228) 4.8 MEQ/L CHLORIDE (test code = 2215) 106 MEQ/L CARBON DIOXIDE (test code = 2206) 25 MEQ/L CALCIUM (test code = 2209) 9.1 MG/DL PROTEIN, TOTAL (test code = 2229) 7.0 G/DL ALBUMIN (test code = 2201) 4.3 G/DL CALC GLOBULIN (test code = 2240) 2.7 G/DL CALC A/G RATIO (test code = 2234) 1.6 RATIO BILIRUBIN, TOTAL (test code = 2207) <0.2 MG/DL ALKALINE PHOSPHATASE (test code = 2204) 108 U/L AST (test code = 2218) 34 U/L ALT (test code = 2219) 44 U/L LIPID [id number] 00:00:00* Test Item Value Reference Range Interpretation Comme nts CHOLESTEROL (test code = 2210) 186 MG/DL TRIGLYCERIDES (test code = 2232) 112 MG/DL HDL CHOLESTEROL (test code = 2220) 62 MG/DL CALC LDL CHOL (test code = 2237) 102 MG/DL RISK RATIO LDL/HDL (test cod e = 2238) 1.64 RATIO CBC W/AUTO [id number] 00:00:00* Test Item Value Reference Range Interpretation Comme nts WBC (test code = 1001) 7.3 K/UL RBC (test code = 1002) 4.53 M/UL HEMOGLOBIN (test code = 1003) 14.8 G/DL HEMATOCRIT (test code = 1004) 42.2 % MCV (test code = 1005) 93.2 fL MCH (test code = 1006) 32.7 PG MCHC (test code = 1007) 35.1 G/DL RDW (test code = 1038) 11.6 % NEUTROPHILS (test code = 1008) 45.2 % LYMPHOCYTES (test code = 1010) 44.7 % MONOCYTES (test code = 1011) 8.1 % EOSINOPHILS (test code = 1012) 1.2 % BASOPHILS (test code = 1013) 0.8 % PLATELET COUNT (test code = 1015) 309 K/UL HEMOGLOBIN [id number] 00:00:00* Test Item Value Reference Range Interpretation Comme nts HEMOGLOBIN A1c (test code = 63084) 5.8 % [id number] 00:00:00* Test Item Value Reference Range Interpretation Comme nts TSH, THIRD GENERATION (test code = 2821) 1.600 UIU/ML LIPID [id number] 00:00:00* Test Item Value Reference Range Interpretation Comme nts CHOLESTEROL (test code = 2210) 186 MG/DL TRIGLYCERIDES (test code = 2232) 112 MG/DL HDL CHOLESTEROL (test code = 2220) 62 MG/DL CALC LDL CHOL (test code = 2237) 102 MG/DL RISK RATIO LDL/HDL (test cod e = 2238) 1.64 RATIO Oleg LemonCBC W/AUTO [id number] 00:00:00* Test Item Value Reference Range Interpretation Comme nts WBC (test code = 1001) 7.3 K/UL RBC (test code = 1002) 4.53 M/UL HEMOGLOBIN (test code = 1003) 14.8 G/DL HEMATOCRIT (test code = 1004) 42.2 % MCV (test code = 1005) 93.2 fL MCH (test code = 1006) 32.7 PG MCHC (test code = 1007) 35.1 G/DL RDW (test code = 1038) 11.6 % NEUTROPHILS (test code = 1008) 45.2 % LYMPHOCYTES (test code = 1010) 44.7 % MONOCYTES (test code = 1011) 8.1 % EOSINOPHILS (test code = 1012) 1.2 % BASOPHILS (test code = 1013) 0.8 % PLATELET COUNT (test code = 1015) 309 K/UL Oleg LemonHEMOGLOBIN [id number] 00:00:00* Test Item Value Reference Range Interpretation Comme [facility] HEMOGLOBIN A1c (test code = 15330) 5.8 % Oleg Flores [id number] 00:00:00* Test Item Value Reference Range Interpretation Comme [facility] TSH, THIRD GENERATION (test code = 2821) 1.600 UIU/ML Oleg LemonCOMPREHENSIVE METABOLIC [id number] 00:00:00* Test Item Value Reference Range Interpretation Comme nts GLUCOSE (test code = 2217) 103 MG/DL BUN (test code = 2208) 12 MG/DL CREATININE (test code = 2214) 0.66 MG/DL eGFR AMER. (test cod e = 59989) 110 ML/MIN/1.73 eGFR NON- AMER. (test code = 09742) 95 ML/MIN/1.73 CALC BUN/CREAT (test code = 2235) 18 RATIO SODIUM (test code = 2231) 143 MEQ/L POTASSIUM (test code = 2228) 4.8 MEQ/L CHLORIDE (test code = 2215) 106 MEQ/L CARBON DIOXIDE (test code = 2206) 25 MEQ/L CALCIUM (test code = 2209) 9.1 MG/DL PROTEIN, TOTAL (test code = 2229) 7.0 G/DL ALBUMIN (test code = 2201) 4.3 G/DL CALC GLOBULIN (test code = 2240) 2.7 G/DL CALC A/G RATIO (test code = 2234) 1.6 RATIO BILIRUBIN, TOTAL (test code = 2207) <0.2 MG/DL ALKALINE PHOSPHATASE (test code = 2204) 108 U/L AST (test code = 2218) 34 U/L ALT (test code = 2219) 44 U/L Oleg LemonPAP TEST, THINPREP, [id number] 00:00:00* Test Item Value Reference Range Interpretation Comme nts SOURCE: (test code = 8001) Cervical/Endocervical SLIDES: (test code = 8011) 1 LMP: (test code = 8021) SEE NOTE SPECIMEN ADEQUACY: (test code = 08985) (NOTE) INTERPRETATION: (test code = 91526) EPITHELIAL ABNORMALITY SEE BELOW OTHER COMMENTS: (test code = 8081) (NOTE) POULTRY BONER: (test code = 8101) EDILIA Trivedi(ASCP) [facility] PATHOLOGIST INTERPRETATION BY: (test code = 8122) Yobany Ayala M.D. LOCATION: (test code = 80060) (NOTE) CPT: (test code = 8140) (NOTE) PAP TEST, THINPREP, [id number] 00:00:00* Test Item Value Reference Range Interpretation Comme nts SOURCE: (test code = 8001) Cervical/Endocervical SLIDES: (test code = 8011) 1 LMP: (test code = 8021) SEE NOTE SPECIMEN ADEQUACY: (test code = 44647) (NOTE) INTERPRETATION: (test code = 29175) EPITHELIAL ABNORMALITY SEE BELOW OTHER COMMENTS: (test code = 8081) (NOTE) POULTRY BONER: (test code = 8101) EDILIA Trivedi(ASCP) [facility] PATHOLOGIST INTERPRETATION BY: (test code = 8122) Yobany Ayala M.D. LOCATION: (test code = 65058) (NOTE) CPT: (test code = 8140) (NOTE) PAP TEST, THINPREP, [id number] 00:00:00* Test Item Value Reference Range Interpretation Comme nts SOURCE: (test code = 8001) Cervical/Endocervical SLIDES: (test code = 8011) 1 LMP: (test code = 8021) SEE NOTE SPECIMEN ADEQUACY: (test code = 52043) (NOTE) INTERPRETATION: (test code = 61915) EPITHELIAL ABNORMALITY SEE BELOW OTHER COMMENTS: (test code = 8081) (NOTE) POULTRY BONER: (test code = 8101) EDILIA Trivedi(ASCP) [facility] PATHOLOGIST INTERPRETATION BY: (test code = 8122) Yobany Ayala M.D. LOCATION: (test code = 39742) (NOTE) CPT: (test code = 8140) (NOTE) PAP TEST, THINPREP, [id number] 00:00:00* Test Item Value Reference Range Interpretation Comme nts SOURCE: (test code = 8001) Cervical/Endocervical SLIDES: (test code = 8011) 1 LMP: (test code = 8021) SEE NOTE SPECIMEN ADEQUACY: (test code = 89500) (NOTE) INTERPRETATION: (test code = 89836) EPITHELIAL ABNORMALITY SEE BELOW OTHER COMMENTS: (test code = 8081) (NOTE) POULTRY BONER: (test code = 8101) EDILIA Trivedi(ASCP) [facility] PATHOLOGIST INTERPRETATION BY: (test code = 8122) Yobany Ayala M.D. LOCATION: (test code = 60302) (NOTE) CPT: (test code = 8140) (NOTE) PAP TEST, THINPREP, [id number] 00:00:00* Test Item Value Reference Range Interpretation Comme nts SOURCE: (test code = 8001) Cervical/Endocervical SLIDES: (test code = 8011) 1 LMP: (test code = 8021) SEE NOTE SPECIMEN ADEQUACY: (test code = 04093) (NOTE) INTERPRETATION: (test code = 55321) EPITHELIAL ABNORMALITY SEE BELOW OTHER COMMENTS: (test code = 8081) (NOTE) POULTRY BONER: (test code = 8101) EDILIA Trivedi(ASCP) [facility] PATHOLOGIST INTERPRETATION BY: (test code = 8122) Yobany Ayala M.D. LOCATION: (test code = 02430) (NOTE) CPT: (test code = 8140) (NOTE) Oleg Flores AustinHPV HIGH RISK WITH GENOTYPE, [id number] 00:00:00* Test Item Value Reference Range Interpretation Comme nts HPV HIGH RISK INTERP (test c ode = 55575) NEGATIVE HPV 16 (test code = 00945) NEGATIVE HPV 18 (test code = 85350) NEGATIVE HPV, HR, OTHER GENOTYPES (te st code = 30733) NEGATIVE CT/NG, TMA, THINPREP [ADDED]2017-12-16 00:00:00* Test Item Value Reference Range Interpretation Comme nts GONORRHEA, TMA (test code = 52239) NEGATIVE CHLAMYDIA, TMA (test code = 51715) NEGATIVE HPV HIGH RISK WITH GENOTYPE, [id number] 00:00:00* Test Item Value Reference Range Interpretation Comme nts HPV HIGH RISK INTERP (test c ode = 33535) NEGATIVE HPV 16 (test code = 96488) NEGATIVE HPV 18 (test code = 84521) NEGATIVE HPV, HR, OTHER GENOTYPES (te st code = 96594) NEGATIVE CT/NG, TMA, THINPREP [ADDED]2017-12-16 00:00:00* Test Item Value Reference Range Interpretation Comme nts GONORRHEA, TMA (test code = 11037) NEGATIVE CHLAMYDIA, TMA (test code = 36382) NEGATIVE HPV HIGH RISK WITH GENOTYPE, [id number] 00:00:00* Test Item Value Reference Range Interpretation Comme nts HPV HIGH RISK INTERP (test c ode = 06698) NEGATIVE HPV 16 (test code = 83961) NEGATIVE HPV 18 (test code = 27589) NEGATIVE HPV, HR, OTHER GENOTYPES (te st code = 42338) NEGATIVE CT/NG, TMA, THINPREP [ADDED]2017-12-16 00:00:00* Test Item Value Reference Range Interpretation Comme nts GONORRHEA, TMA (test code = 06664) NEGATIVE CHLAMYDIA, TMA (test code = 48676) NEGATIVE HPV HIGH RISK WITH GENOTYPE, [id number] 00:00:00* Test Item Value Reference Range Interpretation Comme nts HPV HIGH RISK INTERP (test c ode = 16432) NEGATIVE HPV 16 (test code = 28454) NEGATIVE HPV 18 (test code = 36010) NEGATIVE HPV, HR, OTHER GENOTYPES (te st code = 88779) NEGATIVE CT/NG, TMA, THINPREP [ADDED]2017-12-16 00:00:00* Test Item Value Reference Range Interpretation Comme nts GONORRHEA, TMA (test code = 33497) NEGATIVE CHLAMYDIA, TMA (test code = 32520) NEGATIVE HPV HIGH RISK WITH GENOTYPE, [id number] 00:00:00* Test Item Value Reference Range Interpretation Comme nts HPV HIGH RISK INTERP (test c ode = 01617) NEGATIVE HPV 16 (test code = 79630) NEGATIVE HPV 18 (test code = 82599) NEGATIVE HPV, HR, OTHER GENOTYPES (te st code = 18032) NEGATIVE Oleg Flores AustinCT/NG, TMA, THINPREP [ADDED]2017-12-16 00:00:00* Test Item Value Reference Range Interpretation Comme nts GONORRHEA, TMA (test code = 37431) NEGATIVE CHLAMYDIA, TMA (test code = 18275) NEGATIVE Oleg LemonCBC W/AUTO [id number] 00:00:00* Test Item Value Reference Range Interpretation Comme nts WBC (test code = 1001) 14.2 K/UL RBC (test code = 1002) 4.17 M/UL HEMOGLOBIN (test code = 1003) 13.9 G/DL HEMATOCRIT (test code = 1004) 40.1 % MCV (test code = 1005) 96.2 fL MCH (test code = 1006) 33.3 PG MCHC (test code = 1007) 34.7 G/DL RDW (test code = 1038) 13.0 % NEUTROPHILS (test code = 1008) 70.4 % LYMPHOCYTES (test code = 1010) 20.5 % MONOCYTES (test code = 1011) 8.2 % EOSINOPHILS (test code = 1012) 0.5 % BASOPHILS (test code = 1013) 0.4 % PLATELET COUNT (test code = 1015) 385 K/UL HEMOGLOBIN [id number] 00:00:00* Test Item Value Reference Range Interpretation Comme nts HEMOGLOBIN A1c (test code = 65902) 5.9 % LIPID [id number] 00:00:00* Test Item Value Reference Range Interpretation Comme nts CHOLESTEROL (test code = 2210) 194 MG/DL TRIGLYCERIDES (test code = 2232) 123 MG/DL HDL CHOLESTEROL (test code = 2220) 61 MG/DL CALC LDL CHOL (test code = 2237) 108 MG/DL RISK RATIO LDL/HDL (test cod e = 2238) 1.78 RATIO COMPREHENSIVE METABOLIC [id number] 00:00:00* Test Item Value Reference Range Interpretation Comme nts GLUCOSE (test code = 2217) 106 MG/DL BUN (test code = 2208) 8 MG/DL CREATININE (test code = 2214) 0.60 MG/DL eGFR AMER. (test cod e = 42986) 115 ML/MIN/1.73 eGFR NON- AMER. (test code = 59390) 99 ML/MIN/1.73 CALC BUN/CREAT (test code = 2235) 13 RATIO SODIUM (test code = 2231) 138 MEQ/L POTASSIUM (test code = 2228) 3.9 MEQ/L CHLORIDE (test code = 2215) 103 MEQ/L CARBON DIOXIDE (test code = 2206) 23 MEQ/L CALCIUM (test code = 2209) 9.1 MG/DL PROTEIN, TOTAL (test code = 2229) 6.6 G/DL ALBUMIN (test code = 2201) 4.1 G/DL CALC GLOBULIN (test code = 2240) 2.5 G/DL CALC A/G RATIO (test code = 2234) 1.6 RATIO BILIRUBIN, TOTAL (test code = 2207) 0.2 MG/DL ALKALINE PHOSPHATASE (test code = 2204) 94 U/L AST (test code = 2218) 30 U/L ALT (test code = 2219) 50 U/L [id number] 00:00:00* Test Item Value Reference Range Interpretation Comme nts TSH, THIRD GENERATION (test code = 2821) 2.750 UIU/ML CBC W/AUTO [id number] 00:00:00* Test Item Value Reference Range Interpretation Comme nts WBC (test code = 1001) 14.2 K/UL RBC (test code = 1002) 4.17 M/UL HEMOGLOBIN (test code = 1003) 13.9 G/DL HEMATOCRIT (test code = 1004) 40.1 % MCV (test code = 1005) 96.2 fL MCH (test code = 1006) 33.3 PG MCHC (test code = 1007) 34.7 G/DL RDW (test code = 1038) 13.0 % NEUTROPHILS (test code = 1008) 70.4 % LYMPHOCYTES (test code = 1010) 20.5 % MONOCYTES (test code = 1011) 8.2 % EOSINOPHILS (test code = 1012) 0.5 % BASOPHILS (test code = 1013) 0.4 % PLATELET COUNT (test code = 1015) 385 K/UL HEMOGLOBIN [id number] 00:00:00* Test Item Value Reference Range Interpretation Comme nts HEMOGLOBIN A1c (test code = 63850) 5.9 % LIPID [id number] 00:00:00* Test Item Value Reference Range Interpretation Comme nts CHOLESTEROL (test code = 2210) 194 MG/DL TRIGLYCERIDES (test code = 2232) 123 MG/DL HDL CHOLESTEROL (test code = 2220) 61 MG/DL CALC LDL CHOL (test code = 2237) 108 MG/DL RISK RATIO LDL/HDL (test cod e = 2238) 1.78 RATIO COMPREHENSIVE METABOLIC [id number] 00:00:00* Test Item Value Reference Range Interpretation Comme nts GLUCOSE (test code = 2217) 106 MG/DL BUN (test code = 2208) 8 MG/DL CREATININE (test code = 2214) 0.60 MG/DL eGFR AMER. (test cod e = 90330) 115 ML/MIN/1.73 eGFR NON- AMER. (test code = 82111) 99 ML/MIN/1.73 CALC BUN/CREAT (test code = 2235) 13 RATIO SODIUM (test code = 2231) 138 MEQ/L POTASSIUM (test code = 2228) 3.9 MEQ/L CHLORIDE (test code = 2215) 103 MEQ/L CARBON DIOXIDE (test code = 2206) 23 MEQ/L CALCIUM (test code = 2209) 9.1 MG/DL PROTEIN, TOTAL (test code = 2229) 6.6 G/DL ALBUMIN (test code = 2201) 4.1 G/DL CALC GLOBULIN (test code = 2240) 2.5 G/DL CALC A/G RATIO (test code = 2234) 1.6 RATIO BILIRUBIN, TOTAL (test code = 2207) 0.2 MG/DL ALKALINE PHOSPHATASE (test code = 2204) 94 U/L AST (test code = 2218) 30 U/L ALT (test code = 2219) 50 U/L [id number] 00:00:00* Test Item Value Reference Range Interpretation Comme nts TSH, THIRD GENERATION (test code = 2821) 2.750 UIU/ML CBC W/AUTO [id number] 00:00:00* Test Item Value Reference Range Interpretation Comme nts WBC (test code = 1001) 14.2 K/UL RBC (test code = 1002) 4.17 M/UL HEMOGLOBIN (test code = 1003) 13.9 G/DL HEMATOCRIT (test code = 1004) 40.1 % MCV (test code = 1005) 96.2 fL MCH (test code = 1006) 33.3 PG MCHC (test code = 1007) 34.7 G/DL RDW (test code = 1038) 13.0 % NEUTROPHILS (test code = 1008) 70.4 % LYMPHOCYTES (test code = 1010) 20.5 % MONOCYTES (test code = 1011) 8.2 % EOSINOPHILS (test code = 1012) 0.5 % BASOPHILS (test code = 1013) 0.4 % PLATELET COUNT (test code = 1015) 385 K/UL HEMOGLOBIN [id number] 00:00:00* Test Item Value Reference Range Interpretation Comme nts HEMOGLOBIN A1c (test code = 18633) 5.9 % LIPID [id number] 00:00:00* Test Item Value Reference Range Interpretation Comme nts CHOLESTEROL (test code = 2210) 194 MG/DL TRIGLYCERIDES (test code = 2232) 123 MG/DL HDL CHOLESTEROL (test code = 2220) 61 MG/DL CALC LDL CHOL (test code = 2237) 108 MG/DL RISK RATIO LDL/HDL (test cod e = 2238) 1.78 RATIO COMPREHENSIVE METABOLIC [id number] 00:00:00* Test Item Value Reference Range Interpretation Comme nts GLUCOSE (test code = 2217) 106 MG/DL BUN (test code = 2208) 8 MG/DL CREATININE (test code = 2214) 0.60 MG/DL eGFR AMER. (test cod e = 01485) 115 ML/MIN/1.73 eGFR NON- AMER. (test code = 66427) 99 ML/MIN/1.73 CALC BUN/CREAT (test code = 2235) 13 RATIO SODIUM (test code = 2231) 138 MEQ/L POTASSIUM (test code = 2228) 3.9 MEQ/L CHLORIDE (test code = 2215) 103 MEQ/L CARBON DIOXIDE (test code = 2206) 23 MEQ/L CALCIUM (test code = 2209) 9.1 MG/DL PROTEIN, TOTAL (test code = 2229) 6.6 G/DL ALBUMIN (test code = 2201) 4.1 G/DL CALC GLOBULIN (test code = 2240) 2.5 G/DL CALC A/G RATIO (test code = 2234) 1.6 RATIO BILIRUBIN, TOTAL (test code = 2207) 0.2 MG/DL ALKALINE PHOSPHATASE (test code = 2204) 94 U/L AST (test code = 2218) 30 U/L ALT (test code = 2219) 50 U/L [id number] 00:00:00* Test Item Value Reference Range Interpretation Comme nts TSH, THIRD GENERATION (test code = 2821) 2.750 UIU/ML CBC W/AUTO [id number] 00:00:00* Test Item Value Reference Range Interpretation Comme nts WBC (test code = 1001) 14.2 K/UL RBC (test code = 1002) 4.17 M/UL HEMOGLOBIN (test code = 1003) 13.9 G/DL HEMATOCRIT (test code = 1004) 40.1 % MCV (test code = 1005) 96.2 fL MCH (test code = 1006) 33.3 PG MCHC (test code = 1007) 34.7 G/DL RDW (test code = 1038) 13.0 % NEUTROPHILS (test code = 1008) 70.4 % LYMPHOCYTES (test code = 1010) 20.5 % MONOCYTES (test code = 1011) 8.2 % EOSINOPHILS (test code = 1012) 0.5 % BASOPHILS (test code = 1013) 0.4 % PLATELET COUNT (test code = 1015) 385 K/UL HEMOGLOBIN [id number] 00:00:00* Test Item Value Reference Range Interpretation Comme nts HEMOGLOBIN A1c (test code = 11404) 5.9 % LIPID [id number] 00:00:00* Test Item Value Reference Range Interpretation Comme nts CHOLESTEROL (test code = 2210) 194 MG/DL TRIGLYCERIDES (test code = 2232) 123 MG/DL HDL CHOLESTEROL (test code = 2220) 61 MG/DL CALC LDL CHOL (test code = 2237) 108 MG/DL RISK RATIO LDL/HDL (test cod e = 2238) 1.78 RATIO COMPREHENSIVE METABOLIC [id number] 00:00:00* Test Item Value Reference Range Interpretation Comme nts GLUCOSE (test code = 2217) 106 MG/DL BUN (test code = 220) 8 MG/DL CREATININE (test code = 2214) 0.60 MG/DL eGFR AMER. (test cod e = 04762) 115 ML/MIN/1.73 eGFR NON- AMER. (test code = 11050) 99 ML/MIN/1.73 CALC BUN/CREAT (test code = 2235) 13 RATIO SODIUM (test code = 2231) 138 MEQ/L POTASSIUM (test code = 2228) 3.9 MEQ/L CHLORIDE (test code = 2215) 103 MEQ/L CARBON DIOXIDE (test code = 2206) 23 MEQ/L CALCIUM (test code = 2209) 9.1 MG/DL PROTEIN, TOTAL (test code = 222) 6.6 G/DL ALBUMIN (test code = 2201) 4.1 G/DL CALC GLOBULIN (test code = 2240) 2.5 G/DL CALC A/G RATIO (test code = 2234) 1.6 RATIO BILIRUBIN, TOTAL (test code = 2207) 0.2 MG/DL ALKALINE PHOSPHATASE (test code = 2204) 94 U/L AST (test code = 2218) 30 U/L ALT (test code = 2219) 50 U/L [id number] 00:00:00* Test Item Value Reference Range Interpretation Comme nts TSH, THIRD GENERATION (test code = 2821) 2.750 UIU/ML HEMOGLOBIN [id number] 00:00:00* Test Item Value Reference Range Interpretation Comme nts HEMOGLOBIN A1c (test code = 97375) 5.9 % Oleg LemonLIPID [id number] 00:00:00* Test Item Value Reference Range Interpretation Comme nts CHOLESTEROL (test code = 2210) 194 MG/DL TRIGLYCERIDES (test code = 2232) 123 MG/DL HDL CHOLESTEROL (test code = 2220) 61 MG/DL CALC LDL CHOL (test code = 2237) 108 MG/DL RISK RATIO LDL/HDL (test cod e = 223) 1.78 RATIO Oleg LemonCOMPREHENSIVE METABOLIC [id number] 00:00:00* Test Item Value Reference Range Interpretation Comme nts GLUCOSE (test code = 2216) 106 MG/DL BUN (test code = 8) 8 MG/DL CREATININE (test code = 2214) 0.60 MG/DL eGFR AMER. (test cod e = 01384) 115 ML/MIN/1.73 eGFR NON- AMER. (test code = 94442) 99 ML/MIN/1.73 CALC BUN/CREAT (test code = 2235) 13 RATIO SODIUM (test code = 2231) 138 MEQ/L POTASSIUM (test code = 2228) 3.9 MEQ/L CHLORIDE (test code = 2215) 103 MEQ/L CARBON DIOXIDE (test code = 2206) 23 MEQ/L CALCIUM (test code = 2209) 9.1 MG/DL PROTEIN, TOTAL (test code = 2229) 6.6 G/DL ALBUMIN (test code = 2201) 4.1 G/DL CALC GLOBULIN (test code = 2240) 2.5 G/DL CALC A/G RATIO (test code = 2234) 1.6 RATIO BILIRUBIN, TOTAL (test code = 2207) 0.2 MG/DL ALKALINE PHOSPHATASE (test code = 2204) 94 U/L AST (test code = 2218) 30 U/L ALT (test code = 2219) 50 U/L Oleg Flores [id number] 00:00:00* Test Item Value Reference Range Interpretation Comme nts TSH, THIRD GENERATION (test code = 2821) 2.750 UIU/ML Oleg Flores IonCBC W/AUTO [id number] 00:00:00* Test Item Value Reference Range Interpretation Comme nts WBC (test code = 1001) 14.2 K/UL RBC (test code = 1002) 4.17 M/UL HEMOGLOBIN (test code = 1003) 13.9 G/DL HEMATOCRIT (test code = 1004) 40.1 % MCV (test code = 1005) 96.2 fL MCH (test code = 1006) 33.3 PG MCHC (test code = 1007) 34.7 G/DL RDW (test code = 1038) 13.0 % NEUTROPHILS (test code = 1008) 70.4 % LYMPHOCYTES (test code = 1010) 20.5 % MONOCYTES (test code = 1011) 8.2 % EOSINOPHILS (test code = 1012) 0.5 % BASOPHILS (test code = 1013) 0.4 % PLATELET COUNT (test code = 1015) 385 K/UL Oleg Flores AustinACUTE HEPATITIS [id number] 00:00:00* Test Item Value Reference Range Interpretation Comme nts HEPATITIS A IgM (test code = 69510) NON-REACTIVE HEPATITIS B CORE IgM (test c ode = 4644) NON-REACTIVE HEPATITIS B SURF AG (test co de = 2739) NON-REACTIVE HEPATITIS C ANTIBODY (test c ode = 4675) REACTIVE INTERPRETATION HEPATITIS A: (test code = 2552) (NOTE) INTERPRETATION HEPATITIS B: (test code = 98717) (NOTE) INTERPRETATION HEPATITIS C: (test code = 10997) (NOTE) HIV AB/AG COMBO RFLX [id number] 00:00:00* Test Item Value Reference Range Interpretation Comme nts HIV 1/2 4TH GEN, RFLX CONF ( test code = 3514) NON-REACTIVE HCV RNA, PCR QUAL/[id number] 00:00:00* Test Item Value Reference Range Interpretation Comme nts HCV RNA, PCR QUANT (test cod e = 4571) [id number] IU/ML HCV VIRAL LOG (test code = 40204) 6.405 LOGIU/ML HCV QUALITATIVE INTERP (test code = 03997) POSITIVE ACUTE HEPATITIS [id number] 00:00:00* Test Item Value Reference Range Interpretation Comme nts HEPATITIS A IgM (test code = 89733) NON-REACTIVE HEPATITIS B CORE IgM (test c ode = 4644) NON-REACTIVE HEPATITIS B SURF AG (test co de = 2739) NON-REACTIVE HEPATITIS C ANTIBODY (test c ode = 4675) REACTIVE INTERPRETATION HEPATITIS A: (test code = 2552) (NOTE) INTERPRETATION HEPATITIS B: (test code = 23340) (NOTE) INTERPRETATION HEPATITIS C: (test code = 68925) (NOTE) HIV AB/AG COMBO RFLX [id number] 00:00:00* Test Item Value Reference Range Interpretation Comme nts HIV 1/2 4TH GEN, RFLX CONF ( test code = 3514) NON-REACTIVE HCV RNA, PCR QUAL/[id number] 00:00:00* Test Item Value Reference Range Interpretation Comme nts HCV RNA, PCR QUANT (test cod e = 4571) [id number] IU/ML HCV VIRAL LOG (test code = 15012) 6.405 LOGIU/ML HCV QUALITATIVE INTERP (test code = 40642) POSITIVE ACUTE HEPATITIS [id number] 00:00:00* Test Item Value Reference Range Interpretation Comme nts HEPATITIS A IgM (test code = 50412) NON-REACTIVE HEPATITIS B CORE IgM (test c ode = 4644) NON-REACTIVE HEPATITIS B SURF AG (test co de = 2739) NON-REACTIVE HEPATITIS C ANTIBODY (test c ode = 4675) REACTIVE INTERPRETATION HEPATITIS A: (test code = 2552) (NOTE) INTERPRETATION HEPATITIS B: (test code = 03816) (NOTE) INTERPRETATION HEPATITIS C: (test code = 82042) (NOTE) HIV AB/AG COMBO RFLX [id number] 00:00:00* Test Item Value Reference Range Interpretation Comme nts HIV 1/2 4TH GEN, RFLX CONF ( test code = 3514) NON-REACTIVE HCV RNA, PCR QUAL/[id number] 00:00:00* Test Item Value Reference Range Interpretation Comme nts HCV RNA, PCR QUANT (test cod e = 4571) [id number] IU/ML HCV VIRAL LOG (test code = 09139) 6.405 LOGIU/ML HCV QUALITATIVE INTERP (test code = 30599) POSITIVE ACUTE HEPATITIS [id number] 00:00:00* Test Item Value Reference Range Interpretation Comme nts HEPATITIS A IgM (test code = 65466) NON-REACTIVE HEPATITIS B CORE IgM (test c ode = 4644) NON-REACTIVE HEPATITIS B SURF AG (test co de = 2739) NON-REACTIVE HEPATITIS C ANTIBODY (test c ode = 4675) REACTIVE INTERPRETATION HEPATITIS A: (test code = 2552) (NOTE) INTERPRETATION HEPATITIS B: (test code = 16510) (NOTE) INTERPRETATION HEPATITIS C: (test code = 94083) (NOTE) HIV AB/AG COMBO RFLX [id number] 00:00:00* Test Item Value Reference Range Interpretation Comme nts HIV 1/2 4TH GEN, RFLX CONF ( test code = 3514) NON-REACTIVE HCV RNA, PCR QUAL/[id number] 00:00:00* Test Item Value Reference Range Interpretation Comme nts HCV RNA, PCR QUANT (test cod e = 4571) [id number] IU/ML HCV VIRAL LOG (test code = 23640) 6.405 LOGIU/ML HCV QUALITATIVE INTERP (test code = 07752) POSITIVE HIV AB/AG COMBO RFLX [id number] 00:00:00* Test Item Value Reference Range Interpretation Comme nts HIV 1/2 4TH GEN, RFLX CONF ( test code = 3514) NON-REACTIVE Oleg LemonHCV RNA, PCR QUAL/[id number] 00:00:00* Test Item Value Reference Range Interpretation Comme nts HCV RNA, PCR QUANT (test cod e = 4571) [id number] IU/ML HCV VIRAL LOG (test code = 09336) 6.405 LOGIU/ML HCV QUALITATIVE INTERP (test code = 82641) POSITIVE Oleg LemonACUTE HEPATITIS [id number] 00:00:00* Test Item Value Reference Range Interpretation Comme nts HEPATITIS A IgM (test code = 84467) NON-REACTIVE HEPATITIS B CORE IgM (test c ode = 4644) NON-REACTIVE HEPATITIS B SURF AG (test co de = 2739) NON-REACTIVE HEPATITIS C ANTIBODY (test c ode = 4675) REACTIVE INTERPRETATION HEPATITIS A: (test code = 2552) (NOTE) INTERPRETATION HEPATITIS B: (test code = 71040) (NOTE) INTERPRETATION HEPATITIS C: (test code = 04861) (NOTE) Oleg LemonVAGINAL PATHOGENS DNA [id number] 00:00:00* Test Item Value Reference Range Interpretation Comme nts BLANCA SPECIES (test code = 95349) NEGATIVE G. VAGINALIS (test code = 22846) POSITIVE T. VAGINALIS (test code = 65144) NEGATIVE [id number] 00:00:00* Test Item Value Reference Range Interpretation Comme nts RPR RESULT (test code = 3501) NON-REACTIVE RPR TITER (test code = 3500) NOT INDIC. TITER ACUTE HEPATITIS [id number] 00:00:00* Test Item Value Reference Range Interpretation Comme nts HEPATITIS A IgM (test code = 44890) NON-REACTIVE HEPATITIS B CORE IgM (test c ode = 4644) NON-REACTIVE HEPATITIS B SURF AG (test co de = 2739) NON-REACTIVE HEPATITIS C ANTIBODY (test c ode = 4675) REACTIVE INTERPRETATION HEPATITIS A: (test code = 2552) (NOTE) INTERPRETATION HEPATITIS B: (test code = 04335) (NOTE) INTERPRETATION HEPATITIS C: (test code = 86639) (NOTE) HIV AB/AG COMBO RFLX [id number] 00:00:00* Test Item Value Reference Range Interpretation Comme nts HIV 1/2 4TH GEN, RFLX CONF ( test code = 3514) NON-REACTIVE VAGINAL PATHOGENS DNA [id number] 00:00:00* Test Item Value Reference Range Interpretation Comme nts BLANCA SPECIES (test code = ) NEGATIVE G. VAGINALIS (test code = 88426) POSITIVE T. VAGINALIS (test code = 23947) NEGATIVE [id number] 00:00:00* Test Item Value Reference Range Interpretation Comme nts RPR RESULT (test code = 3501) NON-REACTIVE RPR TITER (test code = 3500) NOT INDIC. TITER ACUTE HEPATITIS [id number] 00:00:00* Test Item Value Reference Range Interpretation Comme nts HEPATITIS A IgM (test code = 50094) NON-REACTIVE HEPATITIS B CORE IgM (test c ode = 4644) NON-REACTIVE HEPATITIS B SURF AG (test co de = 2739) NON-REACTIVE HEPATITIS C ANTIBODY (test c ode = 4675) REACTIVE INTERPRETATION HEPATITIS A: (test code = 2552) (NOTE) INTERPRETATION HEPATITIS B: (test code = 48794) (NOTE) INTERPRETATION HEPATITIS C: (test code = 55620) (NOTE) HIV AB/AG COMBO RFLX [id number] 00:00:00* Test Item Value Reference Range Interpretation Comme nts HIV 1/2 4TH GEN, RFLX CONF ( test code = 3514) NON-REACTIVE VAGINAL PATHOGENS DNA [id number] 00:00:00* Test Item Value Reference Range Interpretation Comme nts BLANCA SPECIES (test code = ) NEGATIVE G. VAGINALIS (test code = 29200) POSITIVE T. VAGINALIS (test code = 03718) NEGATIVE [id number] 00:00:00* Test Item Value Reference Range Interpretation Comme nts RPR RESULT (test code = 3501) NON-REACTIVE RPR TITER (test code = 3500) NOT INDIC. TITER ACUTE HEPATITIS [id number] 00:00:00* Test Item Value Reference Range Interpretation Comme nts HEPATITIS A IgM (test code = 30695) NON-REACTIVE HEPATITIS B CORE IgM (test c ode = 4644) NON-REACTIVE HEPATITIS B SURF AG (test co de = 2739) NON-REACTIVE HEPATITIS C ANTIBODY (test c ode = 4675) REACTIVE INTERPRETATION HEPATITIS A: (test code = 2552) (NOTE) INTERPRETATION HEPATITIS B: (test code = 78985) (NOTE) INTERPRETATION HEPATITIS C: (test code = 35550) (NOTE) HIV AB/AG COMBO RFLX [id number] 00:00:00* Test Item Value Reference Range Interpretation Comme nts HIV 1/2 4TH GEN, RFLX CONF ( test code = 3514) NON-REACTIVE VAGINAL PATHOGENS DNA [id number] 00:00:00* Test Item Value Reference Range Interpretation Comme nts BLANCA SPECIES (test code = 00790) NEGATIVE G. VAGINALIS (test code = ) POSITIVE T. VAGINALIS (test code = 59813) NEGATIVE [id number] 00:00:00* Test Item Value Reference Range Interpretation Comme nts RPR RESULT (test code = 3501) NON-REACTIVE RPR TITER (test code = 3500) NOT INDIC. TITER ACUTE HEPATITIS [id number] 00:00:00* Test Item Value Reference Range Interpretation Comme nts HEPATITIS A IgM (test code = 11984) NON-REACTIVE HEPATITIS B CORE IgM (test c ode = 4644) NON-REACTIVE HEPATITIS B SURF AG (test co de = 2739) NON-REACTIVE HEPATITIS C ANTIBODY (test c ode = 4675) REACTIVE INTERPRETATION HEPATITIS A: (test code = 2552) (NOTE) INTERPRETATION HEPATITIS B: (test code = 19050) (NOTE) INTERPRETATION HEPATITIS C: (test code = 02995) (NOTE) HIV AB/AG COMBO RFLX [id number] 00:00:00* Test Item Value Reference Range Interpretation Comme nts HIV 1/2 4TH GEN, RFLX CONF ( test code = 3514) NON-REACTIVE [id number] 00:00:00* Test Item Value Reference Range Interpretation Comme nts RPR RESULT (test code = 3501) NON-REACTIVE RPR TITER (test code = 3500) NOT INDIC. TITER Oleg Sandra AustinACUTE HEPATITIS [id number] 00:00:00* Test Item Value Reference Range Interpretation Comme nts HEPATITIS A IgM (test code = 41394) NON-REACTIVE HEPATITIS B CORE IgM (test c ode = 4644) NON-REACTIVE HEPATITIS B SURF AG (test co de = 2739) NON-REACTIVE HEPATITIS C ANTIBODY (test c ode = 4675) REACTIVE INTERPRETATION HEPATITIS A: (test code = 2552) (NOTE) INTERPRETATION HEPATITIS B: (test code = 67315) (NOTE) INTERPRETATION HEPATITIS C: (test code = 06063) (NOTE) Oleg LemonHIV AB/AG COMBO RFLX [id number] 00:00:00* Test Item Value Reference Range Interpretation Comme nts HIV 1/2 4TH GEN, RFLX CONF ( test code = 3514) NON-REACTIVE Oleg Flores AustinVAGINAL PATHOGENS DNA [id number] 00:00:00* Test Item Value Reference Range Interpretation Comme nts BLANCA SPECIES (test code = 06298) NEGATIVE G. VAGINALIS (test code = 04307) POSITIVE T. VAGINALIS (test code = 75805) NEGATIVE Oleg Flores AustinCT/NG, TMA, URINE [ADDED]2015-11-19 00:00:00* Test Item Value Reference Range Interpretation Comme nts GONORRHEA, TMA (test code = 00741) NEGATIVE CHLAMYDIA, TMA (test code = 62206) NEGATIVE CT/NG, TMA, URINE [ADDED]2015-11-19 00:00:00* Test Item Value Reference Range Interpretation Comme nts GONORRHEA, TMA (test code = 08811) NEGATIVE CHLAMYDIA, TMA (test code = 31141) NEGATIVE CT/NG, TMA, URINE [ADDED]2015-11-19 00:00:00* Test Item Value Reference Range Interpretation Comme nts GONORRHEA, TMA (test code = 77381) NEGATIVE CHLAMYDIA, TMA (test code = 14531) NEGATIVE CT/NG, TMA, URINE [ADDED]2015-11-19 00:00:00* Test Item Value Reference Range Interpretation Comme nts GONORRHEA, TMA (test code = 06505) NEGATIVE CHLAMYDIA, TMA (test code = 08678) NEGATIVE CT/NG, TMA, URINE [ADDED]2015-11-19 00:00:00* Test Item Value Reference Range Interpretation Comme nts GONORRHEA, TMA (test code = 65659) NEGATIVE CHLAMYDIA, TMA (test code = 18047) NEGATIVE Oleg Flores AustinVAGINAL PATHOGENS DNA [id number] 00:00:00* Test Item Value Reference Range Interpretation Comme nts BLANCA SPECIES (test code = ) NEGATIVE G. VAGINALIS (test code = 14054) POSITIVE T. VAGINALIS (test code = 77396) NEGATIVE GC AND CHLAMYDIA AMPLIFIED, [id number] 00:00:00* Test Item Value Reference Range Interpretation Comme nts CHLAMYDIA, TMA (test code = 25364) TEST NOT PERFORMED VAGINAL PATHOGENS DNA [id number] 00:00:00* Test Item Value Reference Range Interpretation Comme nts BLANCA SPECIES (test code = ) NEGATIVE G. VAGINALIS (test code = 05155) POSITIVE T. VAGINALIS (test code = 30169) NEGATIVE GC AND CHLAMYDIA AMPLIFIED, [id number] 00:00:00* Test Item Value Reference Range Interpretation Comme nts CHLAMYDIA, TMA (test code = 49697) TEST NOT PERFORMED VAGINAL PATHOGENS DNA [id number] 00:00:00* Test Item Value Reference Range Interpretation Comme nts BLANCA SPECIES (test code = ) NEGATIVE G. VAGINALIS (test code = 09297) POSITIVE T. VAGINALIS (test code = 37254) NEGATIVE GC AND CHLAMYDIA AMPLIFIED, [id number] 00:00:00* Test Item Value Reference Range Interpretation Comme nts CHLAMYDIA, TMA (test code = 94688) TEST NOT PERFORMED VAGINAL PATHOGENS DNA [id number] 00:00:00* Test Item Value Reference Range Interpretation Comme nts BLANCA SPECIES (test code = ) NEGATIVE G. VAGINALIS (test code = 16623) POSITIVE T. VAGINALIS (test code = 90659) NEGATIVE GC AND CHLAMYDIA AMPLIFIED, [id number] 00:00:00* Test Item Value Reference Range Interpretation Comme nts CHLAMYDIA, TMA (test code = 62309) TEST NOT PERFORMED GC AND CHLAMYDIA AMPLIFIED, [id number] 00:00:00* Test Item Value Reference Range Interpretation Comme nts CHLAMYDIA, TMA (test code = 55398) TEST NOT PERFORMED Oleg LemonVAGINAL PATHOGENS DNA [id number] 00:00:00* Test Item Value Reference Range Interpretation Comme nts BLANCA SPECIES (test code = ) NEGATIVE G. VAGINALIS (test code = 75608) POSITIVE T. VAGINALIS (test code = 38390) NEGATIVE Oleg LemonURINE CULTURE, NO [id number] 00:00:00* Test Item Value Reference Range Interpretation Comme nts URINE CULTURE, NO SENS (test code = 03786) SPECIMEN NUMBER: [id number] URINE CULTURE, NO [id number] 00:00:00* Test Item Value Reference Range Interpretation Comme nts URINE CULTURE, NO SENS (test code = 59474) SPECIMEN NUMBER: [id number] URINE CULTURE, NO [id number] 00:00:00* Test Item Value Reference Range Interpretation Comme nts URINE CULTURE, NO SENS (test code = 31609) SPECIMEN NUMBER: [id number] URINE CULTURE, NO [id number] 00:00:00* Test Item Value Reference Range Interpretation Comme nts URINE CULTURE, NO SENS (test code = 17049) SPECIMEN NUMBER: [id number] URINE CULTURE, NO [id number] 00:00:00* Test Item Value Reference Range Interpretation Comme nts URINE CULTURE, NO SENS (test code = 51877) SPECIMEN NUMBER: [id number] Oleg Lemon History and Physical Notes Date/Time Note Provider Source 2022-11-02 06:35:35 Formatting of this n ote is different from the original. Orthopaedic Surgery H&P Update 11/02/2022 Caroline Mac is a 66 year old female who presents for L subtalar arthrodesis. Since last being seen in clinic (09/30/22), the patient has been doing well with no interval health changes. Properly NPO. Signed consent is on the chart. Appropriate surgical site marked. Please see clinic note below for further details. Jamie Fitzpatrick DO Orthopaedic Resident Procedure: CALCANEOUS ORIF, Right - Feet APPLICATION SPLINT LOWER EXTREMITY, Right - Leg Date: 07/21/22 Interval History 08/05/22: Patient is doing well, pain controlled, no difficulties with incisions. Compliant with weight bearing restrictions. No fevers/chills, chest pain/SOB, nausea/vomiting, new numbness, tingling, weakness. Interval History 08/26/2022: Patient is doing well, pain controlled, no difficulties with incisions. Compliant with weight bearing restrictions. No fevers/chills, chest pain/SOB, nausea/vomiting, new numbness, tingling, weakness. Interval History 09/30/2022: Caroline Mac is here for a f/u s/p procedure above. She is having no issues with surgical incisions. She is having continued pain on the L foot moderately managed with Tramadol. She has been moderately compliant with WB. She stands up to go to bathroom and walks upstairs. She complains that she is in too big of a boot. She describes new L knee pain. She describes having to "pop" her knee "back in place." She also complains of "curling toes" and "spacing" of the left toes." Reports pain in L heel/ankle. Patient tried and failed conservative methods including footwear, inserts and activity modifications, orthotics, pain meds, now problem affect ADLs. No fevers/chills, chest pain/SOB, nausea/vomiting, tingling, weakness. Past Medical History: Past Medical History: Diagnosis Date Bipolar disorder, unspecified Chronic back pain COPD (chronic obstructive pulmonary disease) Past Surgical History: Patient has a past surgical history that includes laparoscopic tubal ligation; lumbar epidural steroid injection (N/A, 02/03/2015); lumbar epidural steroid injection (N/A, 02/10/2015); lumbar epidural steroid injection (N/A, 02/17/2015); lumbar epidural steroid injection (N/A, 08/29/2017); lumbar epidural steroid injection (N/A, 09/05/2017); lumbar epidural steroid injection (N/A, 09/12/2017); calcaneous orif (Right, 07/21/2022); and application splint lower extremity (shx) (Right, 07/21/2022). Medications: Current Rx Current Outpatient Medications Medication Sig Dispense Refill acetaminophen/diphenhydramine (PAIN RELIEF PM ORAL) Take by mouth at bedtime. PRN traMADoL 50 mg tablet TAKE 1 TABLET FOUR TIMES A DAY FOR 10 DAY(S) methocarbamoL 500 mg tablet Take 1 tablet by mouth as needed. QUEtiapine 200 mg tablet Take 1 tablet by mouth at bedtime. WIXELA INHUB 250-50 mcg/dose inhalation disk Inhale 1 Puff in the morning and 1 Puff in the evening. omeprazole 40 mg capsule Take 1 capsule by mouth in the morning. ondansetron 4 mg tablet Take 1 tablet by mouth in the morning and 1 tablet in the evening. traZODONE (DESYREL) 100 mg tablet Take 1 tablet by mouth at bedtime. venlafaxine XR (EFFEXOR XR) 150 mg 24 hr capsule Take 1 capsule by mouth in the morning. No current facility-administered medications for this visit. Facility-Administered Medications Ordered in Other Visits Medication Dose Route Frequency Last Rate Last Admin bupivacaine (preserv free) (SENSORCAINE MPF) 0.25 % (2.5 mg/mL) injection PRN 10 mL at 09/12/17 0909 iohexol (OMNIPAQUE 300-50 mL)) injection PRN 10 mL at 09/12/17 0909 lidocaine 1% (XYLOCAINE) 10 mg/mL (1 %) injection PRN 10 mL at 09/12/17 0909 triamcinolone acetonide (KENALOG) injection PRN 40 mg at 09/12/17 0909 bupivacaine (preserv free) (SENSORCAINE MPF) 0.25 % (2.5 mg/mL) injection PRN 10 mL at 08/29/17 0911 iohexol (OMNIPAQUE 300-50 mL)) injection PRN 3 mL at 08/29/17 0911 lidocaine 1% (XYLOCAINE) 10 mg/mL (1 %) injection PRN 6 mL at 08/29/17 0910 triamcinolone acetonide (KENALOG) injection PRN 40 mg at 08/29/17 0912 Allergies Patient has no known allergies. Past Medical History: Diagnosis Date Bipolar disorder, unspecified Chronic back pain COPD (chronic obstructive pulmonary disease) General Physical Examination: Vitals Temp 36.1 ?C (97 ?F) (Temporal Artery) | Wt 54.4 kg (120 lb) | BMI 22.67 kg/m? No fever General: NAD Resp: Breathing comfortably on RA Cardiology: peripherally perfused Specific Physical Examination: RLE: Well healed surgical site Appropriate TTP SILT + EHL/FHL R knee medial diffuse TTP not specific to epicondyle, joint line, or tibial plateau Neg dory, anterior drawer, varus/valgus stress, Latasha LLE: TTP calcaneous No skin changes Motor, sensory WNL BCR Imaging: Imaging: XR: 3v Right Lower extremities 09/30/2022 shows hardware intact and interval healing. XR L foot 06/14/22: calcaneous fracture with subtalar joint involvement The radiology image(s) interpreted personally by myself and my supervising faculty 10/01/2022 15:16 Assessment/Diagnosis: S/p procedure as above ICD-10-CM 1. Closed fracture of both calcanei with routine healing, subsequent encounter S92.001D S92.002D 2. Pain R52 Plan: I have discussed the patient's physical exam and reviewed their x-rays and imaging with them in detail. All questions have been answered. We have discussed and agreed upon: - WBAT BLE - Splint/Brace: fracture boot shaw - PT - Continue to elevate operative extremity above level of heart until swelling subsides - Discussed intraoperative findings and reviewed imaging - OTC Vitamin C and D - Follow-up postop Orders Placed This Encounter Procedures CASE REQUEST: SUBTALAR ARTHRODESIS XR FOOT 3+ VW RIGHT XR ANKLE 3+ VW RIGHT Patient has attempted conservative management with anti-inflammatory medication, therapy, shoe modification and support without relief and wishes to pursue more aggressive treatment Left subtalar arthrodesis- DJO helix screw Intraoperative Fluoroscopy And Assessment 45 min 11/02/22 Associated attestation - Binta Munson MD - 11/02/2022 10:14 AM CDT Please see my dictated H+P / pre op note and post op notes within the dictated 'operation note' document. I have actively participated in clinical care and have examined and interviewed the patient and supervised procedures on the date of service to the patient and I agree with the attached residents entire note except above. ORT-ORTHOPAEDIC SURGERY [facility] - Health Notes Date/Time Note Provider Source Oleg Perez [facility]2023-09-15 11:05:48 Patient was identified with name and date during prescreening call. Procedure was verified. Discussed preop instructions with pt. NPO instructions discussed with patient nothing by mouth after midnight night before surgery to include gum, mints, hard candy, sucker, cough drops, and vaping tobacco. Pt advised clear liquids (water, sprite, gatorade only) are allowed up until 2 hours prior to arrival time. Pt was advised to have a responsible adult with them DOS, patient was advised that they will receive a call the day before surgery with arrival time between 1 pm and 4 pm[address] DOS 11-02-22 was discussed with patient. Patient v/u. During prescreen call patient stated she needs to speak with Dr. Munson prior to DOS. E-mail sent to Dr. Munson/[facility]
--- NOTE | 2024-11-20 08:07 | RAD REPORT ---
EXAMINATION: XR RIGHT ELBOW CLINICAL INDICATION: Female, 68 years old. PAIN RIGHT TECHNIQUE: Multiple views of the right elbow were obtained. COMPARISON: No prior exam. FINDINGS: Mild diffuse osteopenia. Soft tissue laceration medial elbow. No radiopaque foreign body. No fracture or dislocation.
--- NOTE | 2024-11-20 08:27 | EDPHYS ---
Physician Documentation [facility] Name: Vandana Jang Age: 68 yrs Sex: Female : 1955 Arrival Date: 11/20/2024 Time: 07:25 Bed 16 Private MD: ED Physician Eloina Butler HPI: 11/20 08:34 This 68 yrs old Female presents to ER via Wheelchair with complaints of Fall Injury, kb Laceration To Arm. 08:34 Pt is a 68 year old female who presents for laceration to right AC after falling. kb States she was spraying for roaches turned around to go to the restroom and tripped over something she took out of the cabinet. Denies any other injuries. . Historical: - Allergies: 07:48 No Known Allergies; ss - Immunization history:: Adult Immunizations unknown. - Infectious Disease History:: Denies. - Social history:: Smoking status: unknown. ROS: 07:55 Constitutional: As per HPI kb Exam: 08:30 Constitutional: This is a well developed, well nourished patient who is awake, alert, kb and in no acute distress. Head/Face: Normocephalic, atraumatic. ENT: Moist Mucous membranes Cardiovascular: Regular rate Respiratory: Respirations even and unlabored. No increased work of breathing. Talking in full sentences MS/ Extremity: Pulses equal, no cyanosis. Neurovascular intact. Full, normal range of motion. Neuro: Awake and alert, GCS 15, oriented to person, place, time, and situation. 08:30 Skin: injury, laceration(s), the wound is approximately 3.5 cm(s), of the right antecubital area, that can be described as clean, no foreign body, irregular, without bleeding, Vital Signs: 07:44 BP 133 / 86; Temp 97.8(TE); Weight 57.42 kg; Height 5 ft. 1 in. ; Pain 8/10; ss 08:45 BP 108 / 60; Pulse 68; Resp 18; Pulse Ox 90% on R/A; af3 07:44 Body Mass Index 23.92 (57.42 kg, 154.94 cm) ss 07:44 Pain Scale: Adult ss Laceration: 08:31 Wound Repair of 3.5cm ( 1.4in ) subcutaneous laceration to right antecubital area. kb Irregularly shaped.. Skin/tissue flap noted.. v-shaped, 2.5x3.5cm. Distal neuro/vascular/tendon intact. Anesthesia: Local anesthetic administered with 5 mls of 1% lidocaine. Wound prep: Extensive cleansing with hibiclenz by me, Wound irrigation with saline by me. Skin closed with 7 4-0 Prolene using 2 cruciate knots, 5 simple sutures. Patient tolerated well. MDM: 07:44 Medical Screening Exam initiated sp3 07:55 Data reviewed: vital signs, nurses notes. kb 08:30 Differential diagnosis: abrasion, closed head injury, fracture, laceration. Historians kb other than the Patient: Friend: friend. Counseling: I had a detailed discussion with the patient and/or guardian regarding the historical points, exam findings, and any diagnostic results supporting the discharge/admit diagnosis, radiology results, the need for outpatient follow up, a family practitioner, to return to the emergency department if symptoms worsen or persist or if there are any questions or concerns that arise at home. 08:35 Test considered but Not performed: CT: ct traumagram considered but pt states she does kb not need that and doesn't want any other testing at this time. 11/20 07:45 Order name: Elbow Right 3 View XRAY; Complete Time: 08:25 sp3 11/20 07:45 Order name: NPO; Complete Time: 07:59 sp3 Administered Medications: 08:29 Drug: Lidocaine Infiltration (1 %) 20 ml 20 ml Infiltration once; to bedside Volume: 20 af3 ml; Route: Infiltration; Disposition Summary: 11/20/24 08:26 Discharge Ordered Notes: Location: Home kb Condition: Stable kb Diagnosis - Fall on same level, unspecified kb - Laceration without foreign body of right forearm kb Followup: kb - With: Emergency Department - When: As needed - Reason: Worsening of condition Followup: kb - With: Private Physician - When: 2 - 3 days - Reason: Recheck today's complaints, Continuance of care, Re-evaluation by your physician Discharge Instructions: - Discharge Summary Sheet kb - Laceration Care, Adult, [id number] kb Forms: - Medication Reconciliation Form kb - Antibiotic Education kb - Prescription Opioid Use kb - Patient Portal Instructions kb - Leadership Thank You Letter kb Signatures: Dispatcher [employer] EDRosemary Felix FNP-C CAFE SITE ATTENDANT-Ckb Caro Diop, RN RN ss Eloina Butler MD MD sp3 Eileen Lord RN RN af3
--- NOTE | 2024-11-20 08:27 | ER ---
Nurse's Notes [facility] Name: Vandana Jang Age: 68 yrs Sex: Female : 1955 Arrival Date: 11/20/2024 Time: 07:25 Bed 16 Private MD: Diagnosis: Fall on same level, unspecified;Laceration without foreign body of right forearm Presentation: 11/20 07:44 Chief complaint: Patient states: Laceration noted to R antecubital area that reportedly ss occurred after slipping in some flynn spray at 0300 this am. No active bleeding noted at this time. Pt states, "I must have passed out because I woke up and there was a puddle of blood.". Coronavirus screen: Client denies travel out of the [place] in the last 14 days. Ebola Screen: Patient denies exposure to infectious person. Patient denies travel to an Ebola-affected area in the 21 days before illness onset. Initial Sepsis Screen: Does the patient meet any 2 criteria? No. Patient's initial sepsis screen is negative. Does the patient have a suspected source of infection? No. Patient's initial sepsis screen is negative. Risk Assessment: Do you want to hurt yourself or someone else? Patient reports no desire to harm self or others. Onset of symptoms was November 20, 2024. 07:44 Method Of Arrival: Wheelchair ss 07:44 Acuity: LEXX 3 ss Historical: - Allergies: 07:48 No Known Allergies; ss - Immunization history:: Adult Immunizations unknown. - Infectious Disease History:: Denies. - Social history:: Smoking status: unknown. Screenin:46 [facility] ED Fall Risk Assessment (Adult) History of falling in the last 3 months, af3 including since admission No falls in past 3 months (0 pts) Confusion or Disorientation No (0 pts) Intoxicated or Sedated No (0 pts) Impaired Gait No (0 pts) Mobility Assist Device Used No (0 pt) Altered Elimination No (0 pt) Score/Fall Risk Level 0 - 2 = Low Risk Oriented to surroundings, Maintained a safe environment, Educated pt \\T\\ family on fall prevention, incl call for assistance when getting out of bed. Abuse screen: Denies threats or abuse. Denies injuries from another. Nutritional screening: No deficits noted. Tuberculosis screening: No symptoms or risk factors identified. Assessment: 07:44 General: Appears in no apparent distress. uncomfortable, well groomed, well developed, af3 Behavior is calm, cooperative, appropriate for age. Pain: Complains of pain in right antecubital area and dorsal aspect of right forearm Pain currently is 8 out of 10 on a pain scale. Pain: Pain began 3am. Neuro: Level of Consciousness is. Neuro: Level of Consciousness is awake, alert, obeys commands, Oriented to person, place, time, situation, Appropriate for age. Cardiovascular: Patient's skin is warm and dry. Respiratory: Airway is patent Respiratory effort is even, unlabored, Respiratory pattern is regular, symmetrical. Musculoskeletal: Circulation, motion, and sensation intact. Range of motion: intact in all extremities. 08:46 Reassessment: Patient appears in no apparent distress at this time. No changes from af3 previously documented assessment. Patient and/or family updated on plan of care and expected duration. Pain level reassessed. Patient is alert, oriented x 3, equal unlabored respirations, skin warm/dry/pink. Vital Signs: 07:44 BP 133 / 86; Temp 97.8(TE); Weight 57.42 kg; Height 5 ft. 1 in. ; Pain 8/10; ss 08:45 BP 108 / 60; Pulse 68; Resp 18; Pulse Ox 90% on R/A; af3 07:44 Body Mass Index 23.92 (57.42 kg, 154.94 cm) ss 07:44 Pain Scale: Adult ss ED Course: 07:30 Patient arrived in ED. gm2 07:35 Eloina Butler MD is Attending Physician. sp3 07:44 Eileen Lord, COMFORT is Primary Nurse. af3 07:44 Eloina Butler MD is Attending Physician. sp3 07:46 Patient has correct armband on for positive identification. Bed in low position. Call af3 light in reach. Provided Education on: call light use . 07:46 No provider procedures requiring assistance completed. af3 07:47 Rosemary Fischer FNP-C is PHCP. sp3 07:48 Triage completed. ss 07:48 Arm band placed on right wrist. ss 07:59 Elbow Right 3 View XRAY In Process Unspecified. EDMS 09:04 Patient did not have IV access during this emergency room visit. af3 Administered Medications: 08:29 Drug: Lidocaine Infiltration (1 %) 20 ml 20 ml Infiltration once; to bedside Volume: 20 af3 ml; Route: Infiltration; Medication: 08:46 VIS not applicable for this client. af3 Outcome: 08:26 Discharge ordered by . merly 09:03 Discharged to home via wheelchair, with family, af3 09:03 Condition: stable 09:03 Discharge instructions given to patient, family, Instructed on discharge instructions, follow up and referral plans. Demonstrated understanding of instructions, follow-up care, 09:04 Patient left the ED. af3 Signatures: Dispatcher [employer] EDSD Rosemary Fischer, ENAMEL SHADER-C ENAMEL SHADER-Caro Mccormick, RN RN ss Eloina Butler MD MD sp3 [place]lene [place] 2 Eileen Lord, COMFORT RN af3
[2024-11-20 09:37] VITALS: BP 108/60; TEMP 97.8; O2SAT 90
== END 2024-11-20 09:04 | disposition home or self-care (01) ==
LOC: ER 07:25
DX: S51.811A Laceration without foreign body of right forearm, initial encounter (principal); W01.0XXA Fall on same level from slipping, tripping and stumbling without subsequent striking against object, initial encounter
CPT/HCPCS: 73080; 99283; 12032; J2003